=== PATIENT | male | born 1955 | race Caucasian/White ===

== ENCOUNTER 2018-09-07 15:46 | Inpatient (IN) ==
[2018-09-07] MEDS ORDERED: Morphine Inj 4 MG/ML Vial IV.PUSH ONE ×2 (16:02→16:15)
--- NOTE | 2018-09-07 16:15 | ED ---
HPI General Chief complaint: Chest Pain Stated complaint: cardiac alert/evac Time Seen by Provider: 09/07/18 15:56 Source: patient Mode of arrival: EMS Limitations: no limitations History of Present Illness HPI narrative: 63-year-old male with history of hypertension here by ambulance for evaluation of chest pain. The patient is from [place] and drove down here yesterday with his . He has been having intermittent episodes of chest pain for the last week. Pain is substernal and epigastric, described as pressure/sharp, occasionally radiates to his back. Apparently he was evaluated by his primary care physician in [place] who ordered labs and a CT scan of his chest which were reportedly normal. He was given aspirin and sublingual nitroglycerin by EMS prior to arrival, and after 1 dose of sublingual nitroglycerin the patient's blood pressure had significantly dropped. Patient states his pain is severe, constant, no modifying factors. He denies paresthesias or motor deficits. No fevers, chills, cough, or recent illness. No calf pain or swelling. No history of DVT or PE. Related Data Home Medications Medication Instructions Recorded Confirmed esomeprazole magnesium [Nexium] 40 mg PO DAILY 09/07/18 09/07/18 lisinopril 20 mg PO DAILY 09/07/18 09/07/18 multivitamin 1 tab PO DAILY 09/07/18 09/07/18 Allergies Allergy/AdvReac Type Severity Reaction Status Date / Time No Known Allergies Allergy Verified 09/07/18 15:48 Review of Systems ROS: all other systems reviewed are negative [facility] Medical History Medical History HBP (high blood pressure) (Acute) Surgical History Surgical History History of appendectomy (Acute) Social History Social History Substance History: No History of Abuse Second Hand Smoke Exposure: No Smoking Status: Former smoker Tobacco Type: Cigarettes How Often Do You Have a Drink Containing Alcohol: Never Recent Travel in [facility] within the Last 8 Weeks: No Recent Out of Country Travel within the Last 8 Weeks: No Immunization History Tetanus Immunization: >5 Years Exam Narrative Exam Narrative: GENERAL: Well-developed, well-nourished, in obvious pain, SKIN: Focused skin assessment warm/dry. Diffuse jaundice. HEAD: Atraumatic. Normocephalic. EYES: Pupils equal and round. Scleral icterus. No injection or drainage. ENT: No nasal bleeding or discharge. Mucous membranes pink and moist. NECK: Trachea midline. No JVD. CARDIOVASCULAR: Regular rate and rhythm. Distal pulses brisk and equal bilaterally. RESPIRATORY: No accessory muscle use. Clear to auscultation. Breath sounds equal bilaterally. GASTROINTESTINAL: Abdomen soft, nondistended. Mild epigastric tenderness without peritoneal signs. Rest of abdomen is soft and nontender. MUSCULOSKELETAL: No obvious deformities. No clubbing. No cyanosis. No edema. NEUROLOGICAL: Awake and alert. No obvious cranial nerve deficits. Motor grossly within normal limits. Normal speech. PSYCHIATRIC: Appropriate mood and affect; insight and judgment normal. Course Initial Documented Vital Signs Temperature 98.6 F 09/07/18 15:46 Pulse Rate 104 H 09/07/18 15:46 Respiratory Rate 20 09/07/18 15:46 Blood Pressure 134/76 09/07/18 15:46 Pulse Oximetry 96 09/07/18 15:46 Last Documented Vital Signs Temperature 98.2 F 09/07/18 18:08 Pulse Rate 83 09/07/18 18:08 Respiratory Rate 16 09/07/18 18:43 Blood Pressure 146/83 H 09/07/18 18:08 Pulse Oximetry 99 09/07/18 18:08 Critical Care Time Critical Care Time: Yes Total Critical Care Time: 32 Attestation: Aggregate critical care time was 32 minutes. Time to perform other separately billable procedures was not included in the critical care time. My time did not include minutes spent treating any other patients simultaneously or on activities that did not directly contribute to the patient's treatment. The services I provided to this patient were to treat and/or prevent clinically significant deterioration that could result in: , permanent disability, worsening clinical condition, septic shock I provided critical care services requiring my management, as noted below: Chart data review, documentation time, medication orders and management, vital sign assessments/reviewing monitor data, ordering and reviewing lab tests, ordering and interpreting/reviewing x-rays and diagnostic studies, care of the patient and discussion of the patient with the admitting physicians. Medical Decision Making MDM Narrative Medical decision making narrative: Vital signs reviewed. Labs are remarkable for transaminitis, T bili of 5.1, lipase of greater than 30, 000. D-dimer is 10. Calcium is 7.1. Patient was made aware of findings of pancreatitis and hyperbilirubinemia on labs. CT abdomen pelvis will be ordered. The patient was written for more pain medication as well as IV fluids. CT Pulmonary Angiogram: CONCLUSION:1. No pulmonary embolus.2. Nonspecific 8 mm right upper lobe pulmonary nodule. Six-month follow-up noncontrast chest CT is recommended.3. Mild dependent atelectasis of both lung bases.4. Coronary artery calcification.5. Small hiatal hernia. CT Abd/Pelvis: CONCLUSION:1. Moderate severity acute pancreatitis. No parenchymal necrosis demonstrated. No perceptible stones.2. Gallbladder wall thickening. Also pericholecystic fluid. This may be reactive but superimposed acute cholecystitis is also in the differential. Additionally, there is robust mucosal enhancement of the common bile duct and the differential would include cholangitis.3. Mild fatty infiltrated liver. No focal lesion.4. Diverticulosis of the sigmoid colon. No diverticulitis or other acute inflammatory changes of the gastrointestinal tract.5. 1.9 cm left adrenal nodule. I don't have any pertinent priors. This is nonspecific but statistically most likely a benign adenoma.6. Heterogeneous enlargement of the prostate.7. Atherosclerotic aorta. No aneurysm. The patient was started on IV vancomycin and IV Zosyn and will all CT findings and incidental findings including pulmonary nodules were provided a copy of both CT pulmonary angiogram and CT abdomen pelvis reports. Patient denies alcohol use. He will be admitted to the ICU and is amenable to I discussed the case with chain mortiser operator Dr. Celis who will admit the patient to the ICU under his service. He will consult GI. Medical Screen Exam Complete: Yes Emergency Medical Condition: Yes Differential Diagnosis Differential Diagnosis: ACS, pneumothorax, pericarditis, PE, pneumonia, dissection, pancreatitis, hepatobiliary disease Lab Data Result diagrams: 09/07/18 16:10 09/07/18 16:10 Lab Results 09/07/18 09/07/18 09/07/18 Range/Units 16:10 16:10 16:10 WBC 8.5 (4.0-11.0) th/mm3 RBC 4.50 (4.50-5.90) mil/mm3 Hgb 14.8 (13.0-17.0) gm/dL Hct 42.1 (39.0-51.0) % MCV 93.5 (80.0-100.0) fL MCH 32.9 (27.0-34.0) pg MCHC 35.3 (32.0-36.0) % RDW 13.5 (11.6-17.2) % Plt Count 257 (150-450) th/mm3 MPV 8.7 (7.0-11.0) fL Neut % (Auto) 75.0 H (16.0-70.0) % Lymph % (Auto) 11.4 (9.0-44.0) % [place] % (Auto) 12.0 H (0.0-8.0) % Eos % (Auto) 0.8 (0.0-4.0) % Baso % (Auto) 0.8 (0.0-2.0) % Neut # (Auto) 6.4 (1.8-7.7) th/mm3 Lymph # (Auto) 1.0 (1.0-4.8) th/mm3 [place] # (Auto) 1.0 H (0.0-0.9) th/mm3 Eos # (Auto) 0.1 (0.0-0.4) th/mm3 Baso # (Auto) 0.1 (0.0-0.2) th/mm3 WBC Differential . Differential Comment Auto diff final PT 10.4 (9.8-11.6) sec INR 1.0 Ratio APTT 26.5 (23.4-31.7) sec D-Dimer Quant (PE/DVT) 10.11 H (0.00-0.50) mg/L FEU Sodium 139 (136-145) meq/L Potassium 3.4 L (3.5-5.1) meq/L Chloride 109 H (98-107) meq/L Carbon Dioxide 19.7 L (21.0-32.0) meq/L Anion Gap 10 (5-15) meq/L BUN 17 (7-18) mg/dL Creatinine 1.10 (0.60-1.30) mg/dL Estimated GFR 67 L (>89) mL/min Random Glucose 121 H (74-106) mg/dL Calcium 7.1 L* (8.5-10.1) mg/dL Prot Corrected Calcium 7.4 L* (8.5-10.1) mg/dL Total Bilirubin 5.1 H (0.2-1.0) mg/dL AST 271 H (15-37) U/L ALT 487 H (12-78) U/L Alkaline Phosphatase 170 H (45-117) U/L Troponin I Less than 0.02 L (0.02-0.05) ng/mL Total Protein 6.5 (6.4-8.2) g/dL Albumin 2.9 L (3.4-5.0) g/dL Lipase Greater than 91015 H (73-393) U/L Imaging Data Radiologist's impression: Chest X-Ray 09/07/18 16:02 CONCLUSION: No evidence of acute cardiopulmonary process. Abdomen/Pelvis CT 09/07/18 17:59 CONCLUSION: 1. Moderate severity acute pancreatitis. No parenchymal necrosis demonstrated. No perceptible stones. 2. Gallbladder wall thickening. Also pericholecystic fluid. This may be reactive but superimposed acute cholecystitis is also in the differential. Additionally, there is robust mucosal enhancement of the common bile duct and the differential would include cholangitis. 3. Mild fatty infiltrated liver. No focal lesion. 4. Diverticulosis of the sigmoid colon. No diverticulitis or other acute inflammatory changes of the gastrointestinal tract. 5. 1.9 cm left adrenal nodule. I don't have any pertinent priors. This is nonspecific but statistically most likely a benign adenoma. 6. Heterogeneous enlargement of the prostate. 7. Atherosclerotic aorta. No aneurysm. Chest CTA 09/07/18 17:59 CONCLUSION: 1. No pulmonary embolus. 2. Nonspecific 8 mm right upper lobe pulmonary nodule. Six-month follow-up noncontrast chest CT is recommended. 3. Mild dependent atelectasis of both lung bases. 4. Coronary artery calcification. 5. Small hiatal hernia. ECG Data Attestation: I personally reviewed and interpreted this ECG as follows: (Sinus, rate 106, normal axis, normal intervals, low QRS voltages in precordial leads, no acute ischemic abnormalities, no prior for comparison.) Discharge Plan Discharge Disposition Patient Disposition: 30 Still Patient Discharge Condition Condition: Stable Discharge Details Diagnosis: Acute pancreatitis, Transaminitis, Hyperbilirubinemia, Hypocalcemia, Acute cholangitis Physicians Team ED Provider: Sudhakar Barney Primary Care Provider: Primary Care RadhaiJuju Rxs /Orders / Referrals /Forms Prescriptions: No Action lisinopril 20 mg Tablet 20 mg PO DAILY RF: 0 multivitamin Tablet 1 tab PO DAILY RF: 0 esomeprazole magnesium [Nexium] 40 mg Capsule,Delayed Release(Dr/Ec) 40 mg PO DAILY RF: 0 Discharge Instructions Patient Printed Instructions: Chest Pain (ED) Status ED Status: With Doctor
[2018-09-07 16:22] LABS: Baso # (Auto) 0.1 th/mm3 (0.0-0.2); Baso % (Auto) 0.8 % (0.0-2.0); Eos # (Auto) 0.1 th/mm3 (0.0-0.4); Eos % (Auto) 0.8 % (0.0-4.0); Hematocrit 42.1 % (39.0-51.0); Hemoglobin 14.8 gm/dL (13.0-17.0); Lymph % (Auto) 11.4 % (9.0-44.0); Mean Corpuscular HGB Conc 35.3 % (32.0-36.0); Mean Corpuscular Hemoglobin 32.9 pg (27.0-34.0); Mean Corpuscular Volume 93.5 fL (80.0-100.0); Mean Platelet Volume 8.7 fL (7.0-11.0); Neut # (Auto) 6.4 th/mm3 (1.8-7.7); Platelet Count 257 th/mm3 (150-450); Red Cell Distribution Width 13.5 % (11.6-17.2); White Blood Count 8.5 th/mm3 (4.0-11.0)
--- NOTE | 2018-09-07 16:25 | XR ---
EXAM DATE: 09/07/2018 4:20 PM EST AGE/SEX: 63 years / Male INDICATIONS: Chest pain. CLINICAL DATA: This is the patient's initial encounter. Patient reports that signs and symptoms have been present for 1 day and indicates a pain score of 10/10. MEDICAL/SURGICAL HISTORY: Non-responsive. Non-responsive. COMPARISON: No prior exams available for comparison. FINDINGS: A single AP view of the chest demonstrates the lungs to be symmetrically aerated without evidence of mass, infiltrate or effusion. The cardiomediastinal contours are unremarkable. Osseous structures a re intact. CONCLUSION: No evidence of acute cardiopulmonary process. Electronically signed by: Long Johnson MD 09/07/2018 4:24 PM EST
[2018-09-07 16:45] LABS: Activated Partial Thrombo Time 26.5 sec (23.4-31.7); Prothrombin Time 10.4 sec (9.8-11.6)
[2018-09-07 16:49] LABS: D-Dimer 10.11 mg/L FEU (0.00-0.50)
[2018-09-07 17:24] LABS: Alanine Aminotransferase 487 U/L (12-78); Albumin 2.9 g/dL (3.4-5.0); Alkaline Phosphatase 170 U/L (45-117); Anion Gap 10 meq/L (5-15); Aspartate Aminotransferase 271 U/L (15-37); Blood Urea Nitrogen 17 mg/dL (7-18); Calcium 7.1 mg/dL (8.5-10.1); Carbon Dioxide 19.7 meq/L (21.0-32.0); Chloride 109 meq/L (98-107); Glomerular Filtration Rate 67 mL/min (>89); Glucose,Random 121 mg/dL (74-106); Potassium 3.4 meq/L (3.5-5.1); Sodium 139 meq/L (136-145); Total Protein 6.5 g/dL (6.4-8.2)
[2018-09-07] MEDS ORDERED: HYDROmorphone PF Inj 2 MG/ML Vial IV.PUSH ONE (17:59)
[2018-09-07] MEDS ORDERED: Sod Chloride 0.9% Inj 1,000 ML IV.SIG SCH (18:00)
--- NOTE | 2018-09-07 18:40 | CT ---
EXAM DATE: 09/07/2018 6:32 PM EST AGE/SEX: 63 years / Male INDICATIONS: Increasing chest pain for one week CLINICAL DATA: This is the patient's initial encounter. Patient reports that signs and symptoms have been present for 1 week and indicates a pain score of 8/10. MEDICAL/SURGICAL HISTORY: Hypertension. Appendectomy. RADIATION DOSE: 9.10 CTDI (mGy) COMPARISON: No prior exams available for comparison. TECHNIQUE: Volumetric scanning was performed using a multi-row detector CT scanner during bolus infu ras of 98 ml Omnipaque 350 (iohexol) nonionic water-soluble contrast as a cumulative dose for multi ple exams. The data was post processed with a variety of visualization algorithms including full volu me maximum intensity projection and sliding thin slab reformation. Using automated exposure control and adjustment of the mA and/or kV according to patient size, radiation dose was kept as low as reaso nably achievable to obtain optimal diagnostic quality images. DICOM format image data is available e lectronically for review and comparison. FINDINGS: There is no pulmonary embolus. Mild dependent atelectasis seen of both bases. There is an 8 mm pulmonary nodule of the right lung ap ex, series 303 image 22. No lymphadenopathy. Heart size within normal limits. Coronary artery calcification is noted. There is a small hiatal hernia. CONCLUSION: 1. No pulmonary embolus. 2. Nonspecific 8 mm right upper lobe pulmonary nodule. Six-month follow-up noncontrast chest CT is r ecommended. 3. Mild dependent atelectasis of both lung bases. 4. Coronary artery calcification. 5. Small hiatal hernia. Electronically signed by: Reese Retana MD 09/07/2018 6:39 PM EST
--- NOTE | 2018-09-07 18:58 | CT ---
EXAM DATE: 09/07/2018 6:43 PM EST AGE/SEX: 63 years / Male INDICATIONS: Abdomen pain CLINICAL DATA: This is the patient's initial encounter. Patient reports that signs and symptoms have been present for 1 week and indicates a pain score of 8/10. MEDICAL/SURGICAL HISTORY: Hypertension. Appendectomy. ORAL CONTRAST: No oral contrast ingested. RADIATION DOSE: 19.03 CTDI (mGy) COMPARISON: No prior exams available for comparison. TECHNIQUE: Multiple contiguous axial images were obtained through the abdomen and pelvis following b olus infusion of 98 ml Omnipaque 350 (iohexol) nonionic water-soluble contrast as a cumulative dose for multiple exams. No oral contrast ingested. Using automated exposure control and adjustment of t he mA and/or kV according to patient size, radiation dose was kept as low as reasonably achievable to obtain optimal diagnostic quality images. DICOM format image data is available electronically for r eview and comparison. FINDINGS: There is mild to moderate peripancreatic edema consistent with acute pancreatitis. No evide nce of parenchymal necrosis. No fluid collection. Wall thickening seen in the gallbladder and there i s pericholecystic fluid. There is also prominent mucosal enhancement of the common bile duct, nondist ended. No perceptible stone. Liver is mild fatty infiltrated. No focal hepatic lesion or intrahepatic biliary distention. Spleen i s within normal limits. 1.9 cm nodule left adrenal gland. Right adrenal gland is normal. No acute abn ormalities are seen of either kidney. No obstruction or acute inflammatory changes are seen of the gastrointestinal tract. There is left si de diverticulosis of the colon without diverticulitis. No free fluid or free air. No lymphadenopathy. Abdominal aorta is atherosclerotic. No aneurysm. Prostate is enlarged. CONCLUSION: 1. Moderate severity acute pancreatitis. No parenchymal necrosis demonstrated. No perceptible stones . 2. Gallbladder wall thickening. Also pericholecystic fluid. This may be reactive but superimposed ac [place] cholecystitis is also in the differential. Additionally, there is robust mucosal enhancement of t he common bile duct and the differential would include cholangitis. 3. Mild fatty infiltrated liver. No focal lesion. 4. Diverticulosis of the sigmoid colon. No diverticulitis or other acute inflammatory changes of the gastrointestinal tract. 5. 1.9 cm left adrenal nodule. I don't have any pertinent priors. This is nonspecific but statistica lly most likely a benign adenoma. 6. Heterogeneous enlargement of the prostate. 7. Atherosclerotic aorta. No aneurysm. Electronically signed by: Reese Retana MD 09/07/2018 6:57 PM EST
[2018-09-07] MEDS ORDERED: Piperacil/Tazo 4.5 GM Premix 4.5 GM/100 ML BAG IV.SIG ONE (19:01)
[2018-09-07] MEDS ORDERED: Vancomycin Inj 1,000 MG in Sodium Chlor 0.9% Inj 250 ML IV.SIG ONE (19:01)
[2018-09-07] MEDS ORDERED: Dextrose 50% in Water 50 ML Vial IV.PUSH PRN (19:34)
--- NOTE | 2018-09-07 20:07 | P.HPCC ---
History of Present Illness Service: Critical Care Medicine Primary Care Physician: No Primary Care Physician Chief Complaint: abdominal and back pain History of Present Illness: 63yM with history of hypertension and obesity who presents with 5 days of worsening epigastric pain radiating to the back, not associated with food, though he has had a progressive loss of appetite over the last 5 days. Abdominal pain continued to get worse and is severe today. Patient is very clearly jaundiced, but the family notes that they have not noticed this. In the emergency department, laboratory evidence significant for elevated LFTs, elevated T bili to 5, elevated lipase to greater than 30,000. CT abdomen pelvis confirms acute pancreatitis. MRCP confirms 2 stones in the common bile duct. Normal white count and afebrile on room air. Patient denies chest pain, shortness of breath, heat or cold intolerance, nausea, vomiting, diarrhea, constipation. Remainder the review of systems is negative. Patient does have a strong family history of 3 or 4 relatives with gallbladder disease/gallstones. Inpatient Certification: I certify that the inpatient services were ordered in accordance with Medicare regulations governing the order. This includes certification that hospital inpatient services are reasonable and necessary and in the case of services not specified as inpatient-only under 42 CFR 419.22(n), that they are appropriately provided as inpatient services in accordance to with the 2-midnight benchmark under 43 CFR 412.3(e) Estimated Total Length of Stay (Days): 7 Plans for Post Hospital Care: Not yet determined Review of Systems All other systems reviewed negative except as stated in HPI PMFSH - History History Provided By: Patient - Medical History Medical History: Medical History (Last Reviewed 09/08/18 @ 02:51 by Dagoberto Celis MD) HBP (high blood pressure) - Surgical History Surgical History: Surgical History (Last Reviewed 09/08/18 @ 02:51 by Dagoberto Celis MD) History of appendectomy - Family History Family History: Family History (Last Updated 09/08/18 @ 02:51 by Dagoberto Celis MD) Father Gall bladder disease Mother Gall bladder disease - Social History I have reviewed the patient's Social History: Yes - Tobacco History Second Hand Smoke Exposure: No Tobacco Use In Past 30 Days: No Smoking Status: Former smoker Tobacco Type: Cigarettes - Alcohol History How Often Do You Have a Drink Containing Alcohol: Never - Substance Use History Substance History: No History of Abuse - Travel History Recent Travel in the [place] Within the Last 8 Weeks: No Recent Travel Out of the Country Within the Last 8 Weeks: No - Immunization History Tetanus Immunization: >5 Years Medications and Allergies Active Medications: Active Medications Albuterol (Duoneb Neb (Prn)) 1 ampul NEB Q2HR NEB PRN PRN Reason: WHEEZING Chlorhexidine Gluconate (Chlorhexidine 2% Cloth) 3 pack TOPICAL DAILY@0400 GABRIELA Stop: 09/13/18 03:59 Chlorhexidine Gluconate (Chlorhexidine 2% Cloth) 3 pack TOPICAL DAILY@0400 PRN PRN Reason: Extra cloth needed Stop: 09/13/18 03:59 Dextrose (D50w Vial) 50 ml IV.PUSH UNSCH PRN PRN Reason: PER HYPOGLYCEMIA PROTOCOL Famotidine (Pepcid Pf Inj) 20 mg IV.PUSH Q12HR GABRIELA Glucagon (Glucagon Inj) 1 mg OTHER PRN PRN PRN Reason: for Hypoglycemia Protocol Heparin Sodium (Porcine) (Heparin Inj) 5,000 units SQ Q8HR GABRIELA Hydromorphone HCl (Dilaudid Pf Inj) 0.25 mg IV.PUSH Q1H PRN PRN Reason: pain 8-10 or not taking po Vancomycin HCl 1,000 mg/ (Sodium Chloride) 250 mls @ 250 mls/hr IV.SIG ONCE ONE Stop: 09/07/18 20:00 Last Admin: 09/07/18 19:24 Dose: 250 mls/hr Lactated Ringer's (Lr 1000 Ml Inj) 1,000 mls @ 84 mls/hr IV.CONT .[id number] GABRIELA Piperacillin/Tazobactam/Dextrose (Zosyn 4.5 Gm Premix) 4.5 gm in 100 mls @ 200 mls/hr IV.SIG Q6H GABRIELA Insulin Human Regular (Novolin R Correctional Sugar Inj) 0 units SQ Q6HR GABRIELA; Protocol Ondansetron HCl (Zofran Inj) 4 mg IV.PUSH Q6H PRN PRN Reason: NAUSEA OR VOMITING Sodium Chloride (Ns Flush) 2 ml IV.FLUSH UNSCH PRN PRN Reason: FLUSH AFTER USING IV ACCESS Last Admin: 09/07/18 16:28 Dose: 2 ml Sodium Chloride (Ns Flush) 2 ml IV.FLUSH UNSCH PRN PRN Reason: FLUSH AFTER USING IV ACCESS Allergies Allergy/AdvReac Type Severity Reaction Status Date / Time No Known Allergies Allergy Verified 09/07/18 15:48 Home Medications Medication Instructions Recorded Confirmed Type esomeprazole magnesium [Nexium] 40 mg PO DAILY 09/07/18 09/07/18 History lisinopril 20 mg PO DAILY 09/07/18 09/07/18 History multivitamin 1 tab PO DAILY 09/07/18 09/07/18 History Results - Labs CBC & Chem 7: 09/07/18 16:10 09/07/18 16:10 Labs: Short CBC 09/07/18 Range/Units 16:10 WBC 8.5 (4.0-11.0) th/mm3 Hgb 14.8 (13.0-17.0) gm/dL Hct 42.1 (39.0-51.0) % Plt Count 257 (150-450) th/mm3 BMP 09/07/18 16:10 Sodium 139 Potassium 3.4 L Chloride 109 H Carbon Dioxide 19.7 L BUN 17 Creatinine 1.10 Calcium 7.1 L* Cardiac Enzymes 09/07/18 Range/Units 16:10 Troponin I Less than 0.02 L (0.02-0.05) ng/mL Liver Function 09/07/18 Range/Units 16:10 Total Bilirubin 5.1 H (0.2-1.0) mg/dL AST 271 H (15-37) U/L ALT 487 H (12-78) U/L Alkaline Phosphatase 170 H (45-117) U/L Albumin 2.9 L (3.4-5.0) g/dL - Imaging Impressions Chest X-Ray 09/07/18 16:02 CONCLUSION: No evidence of acute cardiopulmonary process. Abdomen/Pelvis CT 09/07/18 17:59 CONCLUSION: 1. Moderate severity acute pancreatitis. No parenchymal necrosis demonstrated. No perceptible stones. 2. Gallbladder wall thickening. Also pericholecystic fluid. This may be reactive but superimposed acute cholecystitis is also in the differential. Additionally, there is robust mucosal enhancement of the common bile duct and the differential would include cholangitis. 3. Mild fatty infiltrated liver. No focal lesion. 4. Diverticulosis of the sigmoid colon. No diverticulitis or other acute inflammatory changes of the gastrointestinal tract. 5. 1.9 cm left adrenal nodule. I don't have any pertinent priors. This is nonspecific but statistically most likely a benign adenoma. 6. Heterogeneous enlargement of the prostate. 7. Atherosclerotic aorta. No aneurysm. Chest CTA 09/07/18 17:59 CONCLUSION: 1. No pulmonary embolus. 2. Nonspecific 8 mm right upper lobe pulmonary nodule. Six-month follow-up noncontrast chest CT is recommended. 3. Mild dependent atelectasis of both lung bases. 4. Coronary artery calcification. 5. Small hiatal hernia. Exam Vital signs: Vital Signs 09/07/18 15:46 09/07/18 16:02 09/07/18 16:15 Temperature 37.0 C 36.9 C Pulse Rate 104 H 95 H Respiratory Rate 20 20 20 Blood Pressure 134/76 152/74 H Pulse Oximetry 96 97 09/07/18 17:00 09/07/18 18:08 09/07/18 18:43 Temperature 36.6 C 36.8 C Pulse Rate 82 83 Respiratory Rate 18 17 16 Blood Pressure 158/67 H 146/83 H Pulse Oximetry 98 99 Intake & Output 09/07/18 09/07/18 09/08/18 06:59 18:59 06:59 Intake Total 1000 / 1000 Balance 1000 / 1000 Weight 117.934 kg Intake: IV 1000 / 1000 NS Inj 1,000 ML @ 1000 mls/hr 1000 / 1000 IV.SIG BOLUS [facility] Rx#:[id number] Narrative: GENERAL: Middle-age male, lying in bed, in distress due to abdominal pain HEENT: Normocephalic. Atraumatic. Pupils equal, round, reactive, conjugate. Mucous membranes are moist NECK: Trachea is midline. There is no JVD. CHEST: Equal chest rise. Room air. CARDIOVASCULAR: Normal rate, regular rhythm. Sinus ABDOMEN: Soft, exquisitely tender in the epigastric region. Nondistended. No guarding. No rebound. MUSCULOSKELETAL: Pulses 2+. No peripheral edema. NEUROLOGICAL: RASS 0. CAM -. Follows commands. No focal deficits. Septic Shock Reassessment Septic shock perfusion: reassessment completed Caprini VTE Risk Assessment Caprini VTE Risk Assessment: Moderate/High Risk (score >= 2) Caprini Risk Assessment Model: Point Value = 1 Point Value = 2 Point Value = 3 Point Value = 5 Age 41-60 Minor surgery BMI > 25 kg/m2 Swollen legs Varicose veins or History of unexplained or recurrent spontaneous Oral contraceptives or hormone replacement Sepsis (< 1 month) Serious lung disease, including pneumonia (< 1 month) Abnormal pulmonary function Acute myocardial infarction Congestive heart failure (< 1 month) History of inflammatory bowel disease Medical patient at bed rest Age 61-74 Arthroscopic surgery Major open surgery (> 45 min) Laparoscopic surgery (> 45 min) Malignancy Confined to bed (> 72 hours) Immobilizing plaster cast Central venous access Age >= 75 History of VTE Family history of VTE Factor V Leiden Prothrombin [id number] Lupus anticoagulant Anticardiolipin antibodies Elevated serum homocysteine Heparin-induced thrombocytopenia Other congenital or acquired thrombophilia Stroke (< 1 month) Elective arthroplasty Hip, pelvis, or leg fracture Acute spinal cord injury (< 1 month) Prophylaxis Regimen: Total Risk Factor Score Risk Level Prophylaxis Regimen 0-1 Low Early ambulation 2 Moderate Order ONE of the following: *Sequential Compression Device (SCD) *Heparin 5000 units SQ BID 3-4 Higher Order ONE of the following medications: *Heparin 5000 units SQ TID *Enoxaparin/Lovenox 40 mg SQ daily (WT < 150 kg, CrCl > 30 mL/min) *Enoxaparin/Lovenox 30 mg SQ daily (WT < 150 kg, CrCl > 10-29 mL/min) *Enoxaparin/Lovenox 30 mg SQ BID (WT < 150 kg, CrCl > 30 mL/min) AND/OR *Sequential Compression Device (SCD) 5 or more Highest Order ONE of the following medications: *Heparin 5000 units SQ TID (Preferred with Epidurals) *Enoxaparin/Lovenox 40 mg SQ daily (WT < 150 kg, CrCl > 30 mL/min) *Enoxaparin/Lovenox 30 mg SQ daily (WT < 150 kg, CrCl > 10-29 mL/min) *Enoxaparin/Lovenox 30 mg SQ BID (WT < 150 kg, CrCl > 30 mL/min) AND *Sequential Compression Device (SCD) Assessment and Plan - Assessment and Plan Plan: Assessment: 63yM with new acute severe pancreatitis likely secondary to gallstones with possible ascending cholangitis. continue iv abx. GI has been consulted. continue antibiotics, fluid resuscitation, and close monitoring. Agree with ICU admission as he is clearly very ill. Active Problems: Severe pain associated with acute pancreatitis Severe acute pancreatitis Ascending Cholangitis Acute kidney injury Acute liver dysfunction Obstructive Jaundice Gallstone pancreatitis Plan: ivf hydration strict npo iv pain control with dilaudid GI consultation zosyn 4.5gm iv q6h strict i/o's frequent uop monitoring trend CMP, mg, phos, lipase daily cbc would plan on ERCP likely in AM. admit to ICU SQH pepcid
--- NOTE | 2018-09-07 21:20 | MR ---
EXAM DATE: 09/07/2018 9:04 PM EST AGE/SEX: 63 years / Male INDICATIONS: Jaundice. CLINICAL DATA: This is the patient's initial encounter. Patient reports that signs and symptoms have been present for 1 week and indicates a pain score of 8/10. MEDICAL/SURGICAL HISTORY: Hypertension. Appendectomy. COMPARISON: [facility] – [place], CT ABDOMEN & PELVIS W CONTRAST, 09/07/2018. . TECHNIQUE: Multiplanar, multisequence images of the abdomen were obtained without contrast including dedicated cholangiographic images. FINDINGS: There is gallbladder wall thickening and pericholecystic fluid. The wall measures up to 7.6 mm maximu m. A 2.5 cm stone is present near the fundus. There are too numerous to count tiny, gravel-like stone s within the gallbladder as well and probably at least a small amount of sludge. I believe at least o ne tiny stone is in the cystic duct on series 9 image 21. At least 2 tiny stones are seen in the dist al common bile duct just upstream of the ampulla, series 9 images 85 and 86. No intrahepatic or extra hepatic biliary distention. The pancreatic duct is nondistended. A somewhat lobulated contour of the gallbladder fundus, probably phrygian cap but a walled off, extra luminal fluid collection is possible, for example series 3 image 25. I don't see any fluid collection s in the adjacent liver but there is a tiny right hepatic lobe cyst. Diffuse peripancreatic edema consistent with acute pancreatitis. Nothing organized or drainable. Seco nd and third portions of the duodenum appear mildly indurated, most likely reactive. I believe there is probably a small, chronic duodenal diverticulum. CONCLUSION: 1. Cholelithiasis; one large and too numerous to count tiny gravel-like stones within the gallbladde r as described. 2. At least 2 tiny stones are present in the distal common bile duct. No biliary distention. 3. I believe one of the tiny stones is also present in the cystic duct. 4. Gallbladder wall thickening and pericholecystic fluid. Phrygian cap versus walled off abscess/rup ture adjacent to the fundus. 5. Acute pancreatitis without associated abscess. Electronically signed by: Reese Retana MD 09/07/2018 9:19 PM EST
[2018-09-07] MEDS: Famotidine PF Inj 20 MG/2 ML Vial IV.PUSH SCH (21:37)
[2018-09-07 22:13] LABS: Chol/HDL Ratio 7.98 Ratio; HDL Cholesterol 20.8 mg/dL (40.0-60.0)
[2018-09-07] MEDS: HYDROmorphone PF Inj 1 MG/ML Ampul IV.PUSH PRN (22:32)
[2018-09-07] MEDS ORDERED: HYDROmorphone PF Inj 2 MG/ML Vial IV.PUSH STA (22:46)
[2018-09-07 22:51] LABS: Hepatitis A IgM Antibody Nonreactive (Nonreactive); Hepatitits B Surface Antigen Nonreactive (Nonreactive)
[2018-09-07] MEDS: Heparin - SQ 10,000 UNITS/ML Vial SQ SCH (23:32)
[2018-09-08] MEDS: Insulin NovoLIN Regular Correctional Sugar Inj SQ SCH ×5 (01:50→23:51)
[2018-09-08] MEDS: HYDROmorphone PF Inj 1 MG/ML Ampul IV.PUSH PRN ×8 (01:51→21:19)
[2018-09-08] MEDS: Piperacil/Tazo 4.5 GM Premix 4.5 GM/100 ML BAG IV.SIG SCH ×4 (01:51→18:08)
[2018-09-08] MEDS ORDERED: Chlorhexidine Gluconate 2% 1 Pack (2 Cloths) TOPICAL PRN (04:00)
[2018-09-08] MEDS: Chlorhexidine Gluconate 2% 1 Pack (2 Cloths) TOPICAL SCH (04:25)
[2018-09-08 06:03] LABS: Baso % (Auto) 0.5 % (0.0-2.0); Eos # (Auto) 0.1 th/mm3 (0.0-0.4); Eos % (Auto) 1.3 % (0.0-4.0); Hematocrit 42.7 % (39.0-51.0); Hemoglobin 14.7 gm/dL (13.0-17.0); Lymph # (Auto) 0.8 th/mm3 (1.0-4.8); Lymph % (Auto) 10.1 % (9.0-44.0); Mean Corpuscular HGB Conc 34.3 % (32.0-36.0); Mean Corpuscular Hemoglobin 32.5 pg (27.0-34.0); Mean Corpuscular Volume 94.5 fL (80.0-100.0); Mean Platelet Volume 9.1 fL (7.0-11.0); Mono # (Auto) 0.8 th/mm3 (0.0-0.9); Mono % (Auto) 11.1 % (0.0-8.0); Neut # (Auto) 5.8 th/mm3 (1.8-7.7); Platelet Count 210 th/mm3 (150-450); Red Blood Count 4.52 mil/mm3 (4.50-5.90); Red Cell Distribution Width 13.3 % (11.6-17.2); White Blood Count 7.6 th/mm3 (4.0-11.0)
[2018-09-08 06:23] LABS: Prothrombin Time 10.2 sec (9.8-11.6)
[2018-09-08 06:37] LABS: Alanine Aminotransferase 485 U/L (12-78); Alkaline Phosphatase 199 U/L (45-117); Anion Gap 8 meq/L (5-15); Aspartate Aminotransferase 243 U/L (15-37); Blood Urea Nitrogen 18 mg/dL (7-18); Calcium 8.3 mg/dL (8.5-10.1); Carbon Dioxide 25.2 meq/L (21.0-32.0); Chloride 107 meq/L (98-107); Glomerular Filtration Rate 70 mL/min (>89); Glucose,Random 95 mg/dL (74-106); Lipase 2316 U/L (73-393); Magnesium 2.3 mg/dL (1.5-2.5); Phosphorus 2.8 mg/dL (2.5-4.9); Potassium 3.8 meq/L (3.5-5.1); Sodium 140 meq/L (136-145)
[2018-09-08] MEDS: Heparin - SQ 10,000 UNITS/ML Vial SQ SCH (07:48)
[2018-09-08] MEDS: Famotidine PF Inj 20 MG/2 ML Vial IV.PUSH SCH ×2 (08:42→21:16)
[2018-09-08] MEDS ORDERED: HYDROmorphone PF Inj 0.5 MG/0.5 ML Syringe IV.PUSH PRN (09:52)
[2018-09-08] MEDS ORDERED: HYDROmorphone PF Inj 1 MG/ML Ampul IV.PUSH STA (09:55)
--- NOTE | 2018-09-08 10:10 | P.PNCC ---
Subjective Subjective Remarks/Hospital Course: 09/07: 63yM with history of hypertension and obesity who presents with 5 days of worsening epigastric pain radiating to the back, not associated with food, though he has had a progressive loss of appetite over the last 5 days. Abdominal pain continued to get worse and is severe today. Patient is very clearly jaundiced, but the family notes that they have not noticed this. In the emergency department, laboratory evidence significant for elevated LFTs, elevated T bili to 5, elevated lipase to greater than 30,000. CT abdomen pelvis confirms acute pancreatitis. MRCP confirms 2 stones in the common bile duct. Normal white count and afebrile on room air. Patient denies chest pain, shortness of breath, heat or cold intolerance, nausea, vomiting, diarrhea, constipation. Remainder the review of systems is negative. Patient does have a strong family history of 3 or 4 relatives with gallbladder disease/gallstones. 09/08: Resting in bed. Complaining of significant upper abdominal pain. On Dilaudid as needed. Otherwise on room air with no hypotension. Awaiting GI evaluation. Objective Vital Signs / I&O: Vital Signs 09/07/18 15:46 09/07/18 16:02 09/07/18 16:15 Temperature 98.6 F 98.4 F Pulse Rate 104 H 95 H Respiratory Rate 20 20 20 Blood Pressure 134/76 152/74 H Pulse Oximetry 96 97 09/07/18 17:00 09/07/18 18:08 09/07/18 18:43 Temperature 98 F 98.2 F Pulse Rate 82 83 Respiratory Rate 18 17 16 Blood Pressure 158/67 H 146/83 H Pulse Oximetry 98 99 09/07/18 21:16 09/07/18 23:22 09/08/18 07:00 Temperature 98.1 F Pulse Rate 75 74 Respiratory Rate 14 18 18 Blood Pressure 142/66 H 161/80 H Pulse Oximetry 94 L 09/08/18 08:00 09/08/18 08:15 09/08/18 08:26 Temperature 98.2 F Pulse Rate 80 77 78 Respiratory Rate 16 17 Blood Pressure 155/75 H Pulse Oximetry 94 L 94 L 93 L 09/08/18 09:00 09/08/18 09:22 09/08/18 09:26 Temperature Pulse Rate 81 79 Respiratory Rate 23 17 23 Blood Pressure 174/83 H Pulse Oximetry 93 L 93 L 09/08/18 10:00 Temperature Pulse Rate 94 H Respiratory Rate 37 H Blood Pressure Pulse Oximetry 93 L Intake & Output 09/07/18 09/08/18 09/08/18 18:59 06:59 18:59 Intake Total 1550 / 1550 Balance 1550 / 1550 Weight 117.934 kg 117.93 kg 123.9 kg Intake: IV 1550 / 1550 Zosyn 4.5 GM Premix 4.5 gm In 300 / 300 100 ml @ 200 mls/hr IV.SIG Q6H GABRIELA Rx#:[id number] NS Inj 1,000 ML @ 1000 mls/hr 1000 / 1000 IV.SIG BOLUS GABRIELA Rx#:[id number] Vancomycin Inj 1,000 MG In NS 250 / 250 Inj 250 ML @ 250 mls/hr IV.SIG ONCE ONE Rx#:[id number] Other: # Voids 3 Date of Last Bowel Movement 09/07/18 Weight On Admission 117.93 kg Result Diagrams: 09/08/18 04:33 09/08/18 04:33 Imaging: Impressions Cholangiopancreatography MRI 09/07/18 00:00 CONCLUSION: 1. Cholelithiasis; one large and too numerous to count tiny gravel-like stones within the gallbladder as described. 2. At least 2 tiny stones are present in the distal common bile duct. No biliary distention. 3. I believe one of the tiny stones is also present in the cystic duct. 4. Gallbladder wall thickening and pericholecystic fluid. Phrygian cap versus walled off abscess/rupture adjacent to the fundus. 5. Acute pancreatitis without associated abscess. Chest X-Ray 09/07/18 16:02 CONCLUSION: No evidence of acute cardiopulmonary process. Abdomen/Pelvis CT 09/07/18 17:59 CONCLUSION: 1. Moderate severity acute pancreatitis. No parenchymal necrosis demonstrated. No perceptible stones. 2. Gallbladder wall thickening. Also pericholecystic fluid. This may be reactive but superimposed acute cholecystitis is also in the differential. Additionally, there is robust mucosal enhancement of the common bile duct and the differential would include cholangitis. 3. Mild fatty infiltrated liver. No focal lesion. 4. Diverticulosis of the sigmoid colon. No diverticulitis or other acute inflammatory changes of the gastrointestinal tract. 5. 1.9 cm left adrenal nodule. I don't have any pertinent priors. This is nonspecific but statistically most likely a benign adenoma. 6. Heterogeneous enlargement of the prostate. 7. Atherosclerotic aorta. No aneurysm. Chest CTA 09/07/18 17:59 CONCLUSION: 1. No pulmonary embolus. 2. Nonspecific 8 mm right upper lobe pulmonary nodule. Six-month follow-up noncontrast chest CT is recommended. 3. Mild dependent atelectasis of both lung bases. 4. Coronary artery calcification. 5. Small hiatal hernia. Objective Remarks: GENERAL: Middle-age male, lying in bed, in distress due to abdominal pain HEENT: Normocephalic. Atraumatic. Pupils equal, round, reactive, conjugate. Mucous membranes are moist NECK: Trachea is midline. There is no JVD. CHEST: Equal chest rise. Room air. CARDIOVASCULAR: Normal rate, regular rhythm. Sinus ABDOMEN: Soft, exquisitely tender in the epigastric region. Nondistended. No guarding. No rebound. MUSCULOSKELETAL: Pulses 2+. No peripheral edema. NEUROLOGICAL: RASS 0. CAM -. Follows commands. No focal deficits. Assessment and Plan - Assessment and Plan Plan: Assessment: 63yM with new acute severe pancreatitis likely secondary to gallstones with possible ascending cholangitis. continue iv abx. GI has been consulted. continue antibiotics, fluid resuscitation. Active Problems: Severe pain associated with acute pancreatitis Severe acute pancreatitis Ascending Cholangitis Acute kidney injury Acute liver dysfunction Obstructive Jaundice Gallstone pancreatitis Plan: ivf hydration strict npo iv pain control with dilaudid GI consultation zosyn 4.5gm iv q6h strict i/o's frequent uop monitoring trend CMP, mg, phos, lipase daily cbc GI to decide regarding ERCP pepcid Subcutaneous heparin when okay with GI Patient is on room air with no respiratory distress or hypotension overnight. Transferred to [facility] Consult and transfer to hospitalist service for further medical management. Critical care will be signing off
--- NOTE | 2018-09-08 14:00 | P.CONGI ---
History of Present Illness Consult date: 09/08/18 Consult reason: Severe acute pancreatitis Chief complaint: Acute pancreatitis, cholangitis, transaminitis, History of Present Illness: This patient is a 63-year-old male with a past medical history significant for hypertension and obesity. Surgical history includes appendectomy patient presented to the emergency room at [facility] with complaint of upper mid abdominal pain for 1 week. Patient reporting epigastric pain that radiates to his back. Patient reports associated loss of appetite over the last week. Upon consultation, patient states abdominal pain with increasing nausea and vomiting since yesterday. Upon arrival CT abdomen and pelvis revealed acute pancreatitis. MRCP revealed 2 stones in the common bile duct. WBC within normal range.Patient denies any fever or chills. Patient denies any use of tobacco or alcohol products. Patient states he he has never had an EGD or colonoscopy in the past. Patient denies any heartburn or difficulty swallowing. States he has a normal brown soft bowel movement daily with no noted bleeding. Family history significant for both parents and siblings undergoing cholecystectomy. Patient states his father had history of gastric ulcers. <Leighann Mcclure - Last Filed: 09/08/18 13:44> Review of Systems All other systems reviewed negative except as stated in HPI <Leighann Mcclure - Last Filed: 09/08/18 13:44> PMFSH - History History Provided By: Patient - Medical History Medical History: Medical History (Last Reviewed 09/08/18 @ 09:15 by Twyla Ivan) HBP (high blood pressure) - Surgical History Surgical History: Surgical History (Last Reviewed 09/08/18 @ 09:15 by Twyla Ivan) History of appendectomy - Family History Family History: Family History (Last Reviewed 09/08/18 @ 09:15 by Twyla Ivan) Father Gall bladder disease Mother Gall bladder disease - Tobacco History Second Hand Smoke Exposure: No Tobacco Use In Past 30 Days: No Smoking Status: Former smoker Tobacco Type: Cigarettes - Alcohol History How Often Do You Have a Drink Containing Alcohol: Never - Substance Use History Substance History: No History of Abuse - Travel History Recent Travel in the [place] Within the Last 8 Weeks: No Recent Travel Out of the Country Within the Last 8 Weeks: No - Immunization History Tetanus Immunization: >5 Years <Leighann Mcclure - Last Filed: 09/08/18 13:44> - Medical History Medical History: Medical History (Last Reviewed 09/08/18 @ 09:15 by Twyla Ivan) HBP (high blood pressure) - Surgical History Surgical History: Surgical History (Last Reviewed 09/08/18 @ 09:15 by Twyla Ivan) History of appendectomy - Family History Family History: Family History (Last Reviewed 09/08/18 @ 09:15 by Twyla Ivan) Father Gall bladder disease Mother Gall bladder disease <Mar Hogue - Last Filed: 09/09/18 09:47> Medications and Allergies Active Medications: Active Medications Albuterol (Duoneb Neb (Prn)) 1 ampul NEB Q2HR NEB PRN PRN Reason: WHEEZING Chlorhexidine Gluconate (Chlorhexidine 2% Cloth) 3 pack TOPICAL DAILY@0400 [facility] Stop: 09/13/18 03:59 Last Admin: 09/08/18 04:25 Dose: 3 pack Chlorhexidine Gluconate (Chlorhexidine 2% Cloth) 3 pack TOPICAL DAILY@0400 PRN PRN Reason: Extra cloth needed Stop: 09/13/18 03:59 Dextrose (D50w Vial) 50 ml IV.PUSH UNSCH PRN PRN Reason: PER HYPOGLYCEMIA PROTOCOL Famotidine (Pepcid Pf Inj) 20 mg IV.PUSH Q12HR [facility] Last Admin: 09/08/18 08:42 Dose: 20 mg Glucagon (Glucagon Inj) 1 mg OTHER PRN PRN PRN Reason: for Hypoglycemia Protocol Heparin Sodium (Porcine) (Heparin Inj) 5,000 units SQ Q8HR [facility] Last Admin: 09/08/18 07:48 Dose: 5,000 units Hydromorphone HCl (Dilaudid Pf Inj) 0.5 mg IV.PUSH Q2H PRN PRN Reason: PAIN SCALE 4 TO 6 MODERATE Hydromorphone HCl (Dilaudid Pf Inj) 1 mg IV.PUSH Q2H PRN PRN Reason: PAIN SCALE 7 TO 10 SEVERE Last Admin: 09/08/18 12:50 Dose: 1 mg Lactated Ringer's (Lr 1000 Ml Inj) 1,000 mls @ 84 mls/hr IV.CONT .[id number] [facility] Last Admin: 09/08/18 12:50 Dose: 84 mls/hr Piperacillin/Tazobactam/Dextrose (Zosyn 4.5 Gm Premix) 4.5 gm in 100 mls @ 200 mls/hr IV.SIG Q6H [facility] Last Admin: 09/08/18 12:50 Dose: 200 mls/hr Insulin Human Regular (Novolin R Correctional Sugar Inj) 0 units SQ Q6HR [facility]; Protocol Last Admin: 09/08/18 12:44 Dose: Not Given Ondansetron HCl (Zofran Inj) 4 mg IV.PUSH Q6H PRN PRN Reason: NAUSEA OR VOMITING Sodium Chloride (Ns Flush) 2 ml IV.FLUSH UNSCH PRN PRN Reason: FLUSH AFTER USING IV ACCESS Last Admin: 09/07/18 16:28 Dose: 2 ml Sodium Chloride (Ns Flush) 2 ml IV.FLUSH UNSCH PRN PRN Reason: FLUSH AFTER USING IV ACCESS <Leighann Mcclure - Last Filed: 09/08/18 13:44> Active Medications: Active Medications Albuterol (Duoneb Neb (Prn)) 1 ampul NEB Q2HR NEB PRN PRN Reason: WHEEZING Chlorhexidine Gluconate (Chlorhexidine 2% Cloth) 3 pack TOPICAL DAILY@0400 [facility] Stop: 09/13/18 03:59 Last Admin: 09/09/18 03:57 Dose: Not Given Chlorhexidine Gluconate (Chlorhexidine 2% Cloth) 3 pack TOPICAL DAILY@0400 PRN PRN Reason: Extra cloth needed Stop: 09/13/18 03:59 Dextrose (D50w Vial) 50 ml IV.PUSH UNSCH PRN PRN Reason: PER HYPOGLYCEMIA PROTOCOL Diphenhydramine HCl (Benadryl Inj) 25 mg IV.PUSH Q6H PRN PRN Reason: for itching Famotidine (Pepcid Pf Inj) 20 mg IV.PUSH Q12HR [facility] Last Admin: 09/09/18 08:25 Dose: 20 mg Glucagon (Glucagon Inj) 1 mg OTHER PRN PRN PRN Reason: for Hypoglycemia Protocol Heparin Sodium (Porcine) (Heparin Inj) 5,000 units SQ Q8HR [facility] Last Admin: 09/08/18 07:48 Dose: 5,000 units Hydromorphone HCl (Dilaudid Pf Inj) 0.5 mg IV.PUSH Q2H PRN PRN Reason: PAIN SCALE 4 TO 6 MODERATE Hydromorphone HCl (Dilaudid Pf Inj) 1 mg IV.PUSH Q2H PRN PRN Reason: PAIN SCALE 7 TO 10 SEVERE Last Admin: 09/08/18 21:19 Dose: 1 mg Lactated Ringer's (Lr 1000 Ml Inj) 1,000 mls @ 84 mls/hr IV.CONT .[id number] [facility] Last Admin: 09/09/18 08:24 Dose: 84 mls/hr Piperacillin/Tazobactam/Dextrose (Zosyn 4.5 Gm Premix) 4.5 gm in 100 mls @ 200 mls/hr IV.SIG Q6H [facility] Last Infusion: 09/09/18 06:35 Dose: Infused Hydromorphone/Sodium Chloride (Dilaudid Digital [employer] Examiner Inj) 6 mg in 30 mls @ 0 mls/hr [employer]IFIER UNSCH PRN PRN Reason: prn pain Last Admin: 09/08/18 16:55 Dose: 0 mls/hr Insulin Human Regular (Novolin R Correctional Sugar Inj) 0 units SQ Q6HR [facility]; Protocol Last Admin: 09/09/18 06:33 Dose: Not Given Naloxone HCl (Narcan Inj) 0.4 mg IV.PUSH PRN PRN PRN Reason: SEE LABEL COMMENTS Ondansetron HCl (Zofran Inj) 4 mg IV.PUSH Q6H PRN PRN Reason: NAUSEA OR VOMITING Sodium Chloride (Ns Flush) 2 ml IV.FLUSH UNSCH PRN PRN Reason: FLUSH AFTER USING IV ACCESS Last Admin: 09/07/18 16:28 Dose: 2 ml Sodium Chloride (Ns Flush) 2 ml IV.FLUSH UNSCH PRN PRN Reason: FLUSH AFTER USING IV ACCESS Last Admin: 09/09/18 01:48 Dose: 2 ml <Mar Hogue - Last Filed: 09/09/18 09:47> Allergies Allergy/AdvReac Type Severity Reaction Status Date / Time No Known Allergies Allergy Verified 09/07/18 15:48 Home Medications Medication Instructions Recorded Confirmed Type esomeprazole magnesium [Nexium] 40 mg PO DAILY 09/07/18 09/07/18 History lisinopril 20 mg PO DAILY 09/07/18 09/07/18 History multivitamin 1 tab PO DAILY 09/07/18 09/07/18 History Exam Vital signs: Vital Signs 09/07/18 15:46 09/07/18 16:02 09/07/18 16:15 Temperature 98.6 F 98.4 F Pulse Rate 104 H 95 H Respiratory Rate 20 20 20 Blood Pressure 134/76 152/74 H Pulse Oximetry 96 97 09/07/18 17:00 09/07/18 18:08 09/07/18 18:43 Temperature 98 F 98.2 F Pulse Rate 82 83 Respiratory Rate 18 17 16 Blood Pressure 158/67 H 146/83 H Pulse Oximetry 98 99 09/07/18 21:16 09/07/18 23:22 09/08/18 07:00 Temperature 98.1 F Pulse Rate 75 74 Respiratory Rate 14 18 18 Blood Pressure 142/66 H 161/80 H Pulse Oximetry 94 L 09/08/18 08:00 09/08/18 08:15 09/08/18 08:26 Temperature 98.2 F Pulse Rate 80 77 78 Respiratory Rate 16 17 Blood Pressure 155/75 H Pulse Oximetry 94 L 94 L 93 L 09/08/18 09:00 09/08/18 09:22 09/08/18 09:26 Temperature Pulse Rate 81 79 Respiratory Rate 23 17 23 Blood Pressure 174/83 H Pulse Oximetry 93 L 93 L 09/08/18 10:00 Temperature Pulse Rate 94 H Respiratory Rate 37 H Blood Pressure Pulse Oximetry 93 L Intake & Output 09/07/18 09/08/18 09/08/18 18:59 06:59 18:59 Intake Total 1550 / 1550 950 / 950 Balance 1550 / 1550 950 / 950 Weight 117.934 kg 117.93 kg 123.9 kg Intake: IV 1550 / 1550 950 / 950 LR 1000 mL Inj 1,000 ML @ 84 950 / 950 mls/hr IV.CONT .[id number] [facility] Rx# :[id number] Zosyn 4.5 GM Premix 4.5 gm In 300 / 300 100 ml @ 200 mls/hr IV.SIG Q6H [facility] Rx#:[id number] NS Inj 1,000 ML @ 1000 mls/hr 1000 / 1000 IV.SIG BOLUS [facility] Rx#:[id number] Vancomycin Inj 1,000 MG In NS 250 / 250 Inj 250 ML @ 250 mls/hr IV.SIG ONCE ONE Rx#:[id number] Other: # Voids 3 Date of Last Bowel Movement 09/07/18 Weight On Admission 117.93 kg - Constitutional mild distress - Routine HEENT Exam Head: Present: normocephalic - Routine Respiratory Exam Present: CTA bilaterally. Absent: accessory muscle use - Routine Abdominal Exam Present: soft, normoactive bowel sounds, tenderness, distended. Absent: guarding, firm Comments: Epigastric tenderness on palpation during exam - Routine Extremities Exam Present: pulses intact - Routine Skin Exam Present: dry, warm - Routine Neurological Exam Present: alert, oriented X3 <Mcclure,Leighann - Last Filed: 09/08/18 13:44> Vital signs: Vital Signs 09/08/18 10:00 09/08/18 12:00 09/08/18 13:26 Temperature 98.3 F Pulse Rate 94 H 93 H Respiratory Rate 37 H 19 Blood Pressure 191/90 H 168/77 H Pulse Oximetry 93 L 95 09/08/18 13:47 09/08/18 14:00 09/08/18 14:26 Temperature Pulse Rate 97 H 93 H Respiratory Rate 19 26 H 22 Blood Pressure 175/83 H Pulse Oximetry 94 L 96 09/08/18 15:00 09/08/18 15:26 09/08/18 15:35 Temperature Pulse Rate 102 H 99 H Respiratory Rate 24 20 18 Blood Pressure 180/83 H Pulse Oximetry 97 95 09/08/18 15:54 09/08/18 16:00 09/08/18 16:26 Temperature 99 F Pulse Rate 100 H 101 H 98 H Respiratory Rate 16 20 20 Blood Pressure 179/81 H 170/78 H Pulse Oximetry 95 95 94 L 09/08/18 17:33 09/08/18 18:30 09/08/18 19:00 Temperature Pulse Rate 100 H Respiratory Rate 21 22 20 Blood Pressure Pulse Oximetry 94 L 09/08/18 19:26 09/08/18 20:00 09/08/18 20:26 Temperature 98.5 F Pulse Rate 99 H 101 H 103 H Respiratory Rate 19 21 20 Blood Pressure 162/79 H 179/89 H Pulse Oximetry 94 L 96 97 09/08/18 20:47 09/08/18 21:00 09/08/18 21:16 Temperature Pulse Rate 108 H 107 H Respiratory Rate 21 22 Blood Pressure 183/84 H Pulse Oximetry 96 97 95 09/08/18 21:25 09/08/18 21:26 09/08/18 21:49 Temperature Pulse Rate 104 H Respiratory Rate 16 19 16 Blood Pressure 171/75 H Pulse Oximetry 93 L 09/08/18 21:53 09/08/18 22:00 09/08/18 22:26 Temperature Pulse Rate 107 H 107 H 105 H Respiratory Rate 19 19 19 Blood Pressure 162/78 H 175/82 H Pulse Oximetry 95 95 95 09/08/18 23:09 09/09/18 00:00 09/09/18 01:00 Temperature 99.5 F Pulse Rate 108 H 109 H 101 H Respiratory Rate 24 Blood Pressure 162/79 H Pulse Oximetry 94 L 09/09/18 02:00 09/09/18 03:00 09/09/18 04:00 Temperature 98.4 F Pulse Rate 103 H 104 H 106 H Respiratory Rate 24 Blood Pressure 166/86 H Pulse Oximetry 96 09/09/18 05:00 09/09/18 07:00 09/09/18 07:54 Temperature Pulse Rate 98 H 100 H Respiratory Rate Blood Pressure Pulse Oximetry 93 L 09/09/18 08:00 09/09/18 09:00 Temperature 99.1 F Pulse Rate 103 H 93 H Respiratory Rate 20 Blood Pressure 171/84 H Pulse Oximetry 94 L Intake & Output 09/08/18 09/09/18 09/09/18 18:59 06:59 18:59 Intake Total 1150 / 1150 1200 / 1200 1000 / 1000 Balance 1150 / 1150 1200 / 1200 1000 / 1000 Weight 123.9 kg 121 kg Intake: IV 1150 / 1150 1200 / 1200 1000 / 1000 LR 1000 mL Inj 1,000 ML @ 84 950 / 950 1000 / 1000 1000 / 1000 mls/hr IV.CONT .[id number] [facility] Rx# :[id number] Zosyn 4.5 GM Premix 4.5 gm In 200 / 200 200 / 200 100 ml @ 200 mls/hr IV.SIG Q6H [facility] Rx#:[id number] Oral 0 / 0 Other: # Voids 5 4 Date of Last Bowel Movement 09/07/18 09/07/18 # Bowel Movements 0 0 <Mar Hogue - Last Filed: 09/09/18 09:47> Results - Labs CBC & Chem 7: 09/08/18 04:33 09/08/18 04:33 Labs: Laboratory Results - last 24 hr 09/07/18 09/07/18 09/07/18 16:10 16:10 16:10 WBC 8.5 RBC 4.50 Hgb 14.8 Hct 42.1 MCV 93.5 MCH 32.9 MCHC 35.3 RDW 13.5 Plt Count 257 MPV 8.7 Neut % (Auto) 75.0 H Lymph % (Auto) 11.4 Menard % (Auto) 12.0 H Eos % (Auto) 0.8 Baso % (Auto) 0.8 Neut # (Auto) 6.4 Lymph # (Auto) 1.0 Menard # (Auto) 1.0 H Eos # (Auto) 0.1 Baso # (Auto) 0.1 WBC Differential . Differential Comment Auto diff final PT 10.4 INR 1.0 APTT 26.5 D-Dimer Quant (PE/DVT) 10.11 H Sodium 139 Potassium 3.4 L Chloride 109 H Carbon Dioxide 19.7 L Anion Gap 10 BUN 17 Creatinine 1.10 Estimated GFR 67 L POC Glucose Random Glucose 121 H Calcium 7.1 L* Prot Corrected Calcium 7.4 L* Phosphorus Magnesium Total Bilirubin 5.1 H GGT AST 271 H ALT 487 H Alkaline Phosphatase 170 H Troponin I Less than 0.02 L Total Protein 6.5 Albumin 2.9 L Triglycerides Cholesterol LDL Cholesterol, Calc HDL Cholesterol Cholesterol/HDL Ratio Lipase Greater [place] 62041 H Hepatitis A IgM Ab Hep Bs Antigen Hep B Core IgM Ab Hep C IgG Ab 09/07/18 09/07/18 09/07/18 21:05 21:05 21:08 WBC RBC Hgb Hct MCV MCH MCHC RDW Plt Count MPV Neut % (Auto) Lymph % (Auto) Menard % (Auto) Eos % (Auto) Baso % (Auto) Neut # (Auto) Lymph # (Auto) Menard # (Auto) Eos # (Auto) Baso # (Auto) WBC Differential Differential Comment PT INR APTT D-Dimer Quant (PE/DVT) Sodium Potassium Chloride Carbon Dioxide Anion Gap BUN Creatinine Estimated GFR POC Glucose Random Glucose Calcium Prot Corrected Calcium Phosphorus Magnesium Total Bilirubin GGT 599 H AST ALT Alkaline Phosphatase Troponin I Total Protein Albumin Triglycerides 124 Cholesterol 166 LDL Cholesterol, Calc 120 H HDL Cholesterol 20.8 L Cholesterol/HDL Ratio 7.98 Lipase Hepatitis A IgM Ab Nonreactive Hep Bs Antigen Nonreactive Hep B Core IgM Ab Nonreactive Hep C IgG Ab Nonreactive 09/07/18 09/08/18 09/08/18 23:54 04:33 04:33 WBC 7.6 RBC 4.52 Hgb 14.7 Hct 42.7 MCV 94.5 MCH 32.5 MCHC 34.3 RDW 13.3 Plt Count 210 MPV 9.1 Neut % (Auto) 77.0 H Lymph % (Auto) 10.1 Menard % (Auto) 11.1 H Eos % (Auto) 1.3 Baso % (Auto) 0.5 Neut # (Auto) 5.8 Lymph # (Auto) 0.8 L Menard # (Auto) 0.8 Eos # (Auto) 0.1 Baso # (Auto) 0.0 WBC Differential . Differential Comment Auto diff final PT 10.2 INR 1.0 APTT D-Dimer Quant (PE/DVT) Sodium Potassium Chloride Carbon Dioxide Anion Gap BUN Creatinine Estimated GFR POC Glucose 101 Random Glucose Calcium Prot Corrected Calcium Phosphorus Magnesium Total Bilirubin GGT AST ALT Alkaline Phosphatase Troponin I Total Protein Albumin Triglycerides Cholesterol LDL Cholesterol, Calc HDL Cholesterol Cholesterol/HDL Ratio Lipase Hepatitis A IgM Ab Hep Bs Antigen Hep B Core IgM Ab Hep C IgG Ab 09/08/18 09/08/18 04:33 11:37 WBC RBC Hgb Hct MCV MCH MCHC RDW Plt Count MPV Neut % (Auto) Lymph % (Auto) Menard % (Auto) Eos % (Auto) Baso % (Auto) Neut # (Auto) Lymph # (Auto) Menard # (Auto) Eos # (Auto) Baso # (Auto) WBC Differential Differential Comment PT INR APTT D-Dimer Quant (PE/DVT) Sodium 140 Potassium 3.8 Chloride 107 Carbon Dioxide 25.2 Anion Gap 8 BUN 18 Creatinine 1.06 Estimated GFR 70 L POC Glucose 91 Random Glucose 95 Calcium 8.3 L D Prot Corrected Calcium Phosphorus 2.8 Magnesium 2.3 Total Bilirubin 5.5 H GGT AST 243 H ALT 485 H Alkaline Phosphatase 199 H Troponin I Total Protein 7.0 Albumin 3.0 L Triglycerides Cholesterol LDL Cholesterol, Calc HDL Cholesterol Cholesterol/HDL Ratio Lipase 2316 H Hepatitis A IgM Ab Hep Bs Antigen Hep B Core IgM Ab Hep C IgG Ab - Imaging Impressions Cholangiopancreatography MRI 09/07/18 00:00 CONCLUSION: 1. Cholelithiasis; one large and too numerous to count tiny gravel-like stones within the gallbladder as described. 2. At least 2 tiny stones are present in the distal common bile duct. No biliary distention. 3. I believe one of the tiny stones is also present in the cystic duct. 4. Gallbladder wall thickening and pericholecystic fluid. Phrygian cap versus walled off abscess/rupture adjacent to the fundus. 5. Acute pancreatitis without associated abscess. Chest X-Ray 09/07/18 16:02 CONCLUSION: No evidence of acute cardiopulmonary process. Abdomen/Pelvis CT 09/07/18 17:59 CONCLUSION: 1. Moderate severity acute pancreatitis. No parenchymal necrosis demonstrated. No perceptible stones. 2. Gallbladder wall thickening. Also pericholecystic fluid. This may be reactive but superimposed acute cholecystitis is also in the differential. Additionally, there is robust mucosal enhancement of the common bile duct and the differential would include cholangitis. 3. Mild fatty infiltrated liver. No focal lesion. 4. Diverticulosis of the sigmoid colon. No diverticulitis or other acute inflammatory changes of the gastrointestinal tract. 5. 1.9 cm left adrenal nodule. I don't have any pertinent priors. This is nonspecific but statistically most likely a benign adenoma. 6. Heterogeneous enlargement of the prostate. 7. Atherosclerotic aorta. No aneurysm. Chest CTA 09/07/18 17:59 CONCLUSION: 1. No pulmonary embolus. 2. Nonspecific 8 mm right upper lobe pulmonary nodule. Six-month follow-up noncontrast chest CT is recommended. 3. Mild dependent atelectasis of both lung bases. 4. Coronary artery calcification. 5. Small hiatal hernia. <Leighann Mcclure - Last Filed: 09/08/18 13:44> - Labs CBC & Chem 7: 09/09/18 04:41 09/09/18 04:41 Labs: Laboratory Results - last 24 hr 09/08/18 09/08/18 09/08/18 11:37 16:55 23:31 WBC RBC Hgb Hct MCV MCH MCHC RDW Plt Count MPV Neut % (Auto) Lymph % (Auto) Menard % (Auto) Eos % (Auto) Baso % (Auto) Neut # (Auto) Lymph # (Auto) Menard # (Auto) Eos # (Auto) Baso # (Auto) WBC Differential Differential Comment PT INR Sodium Potassium Chloride Carbon Dioxide Anion Gap BUN Creatinine Estimated GFR POC Glucose 91 77 84 Random Glucose Calcium Phosphorus Magnesium Total Bilirubin AST ALT Alkaline Phosphatase Total Protein Albumin Lipase 09/09/18 09/09/18 09/09/18 04:41 04:41 04:41 WBC 14.2 H RBC 4.40 L Hgb 14.1 Hct 41.3 MCV 93.9 MCH 32.0 MCHC 34.1 RDW 13.8 Plt Count 231 MPV 9.0 Neut % (Auto) 82.7 H Lymph % (Auto) 6.4 L Menard % (Auto) 9.7 H Eos % (Auto) 0.4 Baso % (Auto) 0.8 Neut # (Auto) 11.8 H Lymph # (Auto) 0.9 L Menard # (Auto) 1.4 H Eos # (Auto) 0.1 Baso # (Auto) 0.1 WBC Differential . Differential Comment Auto diff final PT 10.9 INR 1.1 Sodium 136 Potassium 3.6 Chloride 103 Carbon Dioxide 25.3 Anion Gap 8 BUN 17 Creatinine 0.99 Estimated GFR 76 L POC Glucose Random Glucose 82 Calcium 8.4 L Phosphorus 2.5 Magnesium 2.1 Total Bilirubin 4.3 H AST 110 H ALT 321 H Alkaline Phosphatase 201 H Total Protein 6.6 Albumin 2.6 L Lipase 575 H 09/09/18 06:08 WBC RBC Hgb Hct MCV MCH MCHC RDW Plt Count MPV Neut % (Auto) Lymph % (Auto) Menard % (Auto) Eos % (Auto) Baso % (Auto) Neut # (Auto) Lymph # (Auto) Menard # (Auto) Eos # (Auto) Baso # (Auto) WBC Differential Differential Comment PT INR Sodium Potassium Chloride Carbon Dioxide Anion Gap BUN Creatinine Estimated GFR POC Glucose 87 Random Glucose Calcium Phosphorus Magnesium Total Bilirubin AST ALT Alkaline Phosphatase Total Protein Albumin Lipase <Mar Hogue - Last Filed: 09/09/18 09:47> Assessment and Plan (1) Acute pancreatitis Status: Acute Code(s): K85.90 - Acute pancreatitis without necrosis or infection, unspecified (2) Transaminitis Status: Acute Code(s): R74.0 - Nonspecific elevation of levels of transaminase and lactic acid dehydrogenase [LDH] (3) Hyperbilirubinemia Status: Acute Code(s): E80.6 - Other disorders of bilirubin metabolism (4) Acute cholangitis Status: Acute Code(s): K83.09 - Other cholangitis - Plan This patient is a 63-year-old male with a past medical history significant for hypertension and obesity. Surgical history includes appendectomy patient presented to the emergency room at [facility] with complaint of upper mid abdominal pain for 1 week. Patient reporting epigastric pain that radiates to his back. Patient describes the pain as a sharp pain that was initially intermittent but became constant over the last 24-48 hours. Patient reports associated loss of appetite over the last week. Upon consultation, patient states abdominal pain with increasing nausea and vomiting since yesterday. Upon arrival CT abdomen and pelvis revealed acute pancreatitis. MRCP revealed 2 stones in the common bile duct. WBC within normal range.Patient denies any fever or chills. Patient denies any use of tobacco or alcohol products. Patient states he he has never had an EGD or colonoscopy in the past. Patient denies any heartburn or difficulty swallowing. States he has a normal brown soft bowel movement daily with no noted bleeding. Family history significant for both parents and siblings undergoing cholecystectomy. Patient states his father had history of gastric ulcers Acute pancreatitis Transaminitis Gallstone pancreatitis Possible cholangitis Patient endorses 1 week history of epigastric pain that radiates to back. Patient denies fever or chills. There is associated nausea and vomiting for the last 24-48 hours. -09/07/2018 CT abdomen and pelvis reveal the following--> 1. Moderate severity acute pancreatitis. No parenchymal necrosis demonstrated. No perceptible stones. 2. Gallbladder wall thickening. Also pericholecystic fluid. This may be reactive but superimposed acute cholecystitis is also in the differential. Additionally, there is robust mucosal enhancement of the common bile duct and the differential would include cholangitis. 3. Mild fatty infiltrated liver. No focal lesion. 4. Diverticulosis of the sigmoid colon. No diverticulitis or other acute inflammatory changes of the gastrointestinal tract. 5. 1.9 cm left adrenal nodule. I don't have any pertinent priors. This is nonspecific but statistically most likely a benign adenoma. 6. Heterogeneous enlargement of the prostate. 7. Atherosclerotic aorta. No aneurysm. -09/07/2018 MRCP revealed the following--> 1. Cholelithiasis; one large and too numerous to count tiny gravel-like stones within the gallbladder as described. 2. At least 2 tiny stones are present in the distal common bile duct. No biliary distention. 3. I believe one of the tiny stones is also present in the cystic duct. 4. Gallbladder wall thickening and pericholecystic fluid. Phrygian cap versus walled off abscess/rupture adjacent to the fundus. 5. Acute pancreatitis without associated abscess. Next -09/08/2018 WBC 7.6 hemoglobin 14.7 hematocrit 42.7 INR 1.0 d-dimer 10.11(chest CTA reveals no pulmonary embolus) Total bilirubin 5.5 GGT 599 AST 243 ALT 485 alk phos 199 lipase 2316 Plan -N.p.o. -Analgesics and antiemetics as per attending -Patient may require ERCP -General surgical consult noted and appreciated for evaluation-possible cholecystectomy -Continue IV antibiotics and IV hydration -Monitor liver function tests and lipase level -Supportive care -Further recommendations to follow This patient has been seen by myself and Dr. Hogue and this note is written on his behalf - Attending Attestation Dr. Hogue <Leighann Mcclure - Last Filed: 09/08/18 13:44> (1) Acute pancreatitis Status: Acute Code(s): K85.90 - Acute pancreatitis without necrosis or infection, unspecified (2) Transaminitis Status: Acute Code(s): R74.0 - Nonspecific elevation of levels of transaminase and lactic acid dehydrogenase [LDH] (3) Hyperbilirubinemia Status: Acute Code(s): E80.6 - Other disorders of bilirubin metabolism (4) Acute cholangitis Status: Acute Code(s): K83.09 - Other cholangitis - Attending Attestation Agree with the plan as above. Case discussed with patient extensively, risk benefits and possible complications discussed with the patient. Further recommendations to follow pending findings. Thank you for the consult. <Mar Hogue - Last Filed: 09/09/18 09:47> <Leighann Mcclure - Last Filed: 09/08/18 13:44> (1) Acute pancreatitis Qualifiers: Pancreatitis type: unspecified pancreatitis type Acute pancreatitis complication: unspecified Qualified Code(s): K85.90 - Acute pancreatitis without necrosis or infection, unspecified <Mar Hogue - Last Filed: 09/09/18 09:47> (1) Acute pancreatitis Qualifiers: Qualified Code(s): K85.90 - Acute pancreatitis without necrosis or infection, unspecified
[2018-09-08] MEDS ORDERED: Naloxone Inj 0.4 MG/ML Vial IV.PUSH PRN (15:19)
[2018-09-08] MEDS: HYDROmorphone PCA Inj 6 MG/30 ML PCA.VIAL PCA PRN (16:55)
[2018-09-09] MEDS: Piperacil/Tazo 4.5 GM Premix 4.5 GM/100 ML BAG IV.SIG SCH ×4 (01:47→17:59)
[2018-09-09] MEDS: Chlorhexidine Gluconate 2% 1 Pack (2 Cloths) TOPICAL SCH (03:57)
[2018-09-09 05:56] LABS: Baso # (Auto) 0.1 th/mm3 (0.0-0.2); Baso % (Auto) 0.8 % (0.0-2.0); Eos # (Auto) 0.1 th/mm3 (0.0-0.4); Eos % (Auto) 0.4 % (0.0-4.0); Hematocrit 41.3 % (39.0-51.0); Hemoglobin 14.1 gm/dL (13.0-17.0); Lymph # (Auto) 0.9 th/mm3 (1.0-4.8); Lymph % (Auto) 6.4 % (9.0-44.0); Mean Corpuscular HGB Conc 34.1 % (32.0-36.0); Mean Corpuscular Volume 93.9 fL (80.0-100.0); Mono # (Auto) 1.4 th/mm3 (0.0-0.9); Mono % (Auto) 9.7 % (0.0-8.0); Neut # (Auto) 11.8 th/mm3 (1.8-7.7); Neut % (Auto) 82.7 % (16.0-70.0); Platelet Count 231 th/mm3 (150-450); Red Cell Distribution Width 13.8 % (11.6-17.2); White Blood Count 14.2 th/mm3 (4.0-11.0)
[2018-09-09 06:01] LABS: INR 1.1 Ratio; Prothrombin Time 10.9 sec (9.8-11.6)
[2018-09-09 06:18] LABS: Alanine Aminotransferase 321 U/L (12-78); Albumin 2.6 g/dL (3.4-5.0); Anion Gap 8 meq/L (5-15); Aspartate Aminotransferase 110 U/L (15-37); Blood Urea Nitrogen 17 mg/dL (7-18); Calcium 8.4 mg/dL (8.5-10.1); Carbon Dioxide 25.3 meq/L (21.0-32.0); Chloride 103 meq/L (98-107); Glomerular Filtration Rate 76 mL/min (>89); Glucose,Random 82 mg/dL (74-106); Lipase 575 U/L (73-393); Magnesium 2.1 mg/dL (1.5-2.5); Phosphorus 2.5 mg/dL (2.5-4.9); Potassium 3.6 meq/L (3.5-5.1); Sodium 136 meq/L (136-145)
[2018-09-09 06:20] LABS: Alkaline Phosphatase 201 U/L (45-117); Total Protein 6.6 g/dL (6.4-8.2)
[2018-09-09] MEDS: Insulin NovoLIN Regular Correctional Sugar Inj SQ SCH ×3 (06:33→18:00)
--- NOTE | 2018-09-09 07:15 | ECG ---
Date Performed: 09/07/2018 Time Performed: 15:52:05 PTAGE: 63 years EKG: SINUS TACHYCARDIA LOW QRS VOLTAGE IN PRECORDIAL LEADS ABNORMAL RHYTHM ECG NO PREVIOUS TRACING DOCTOR: Parth Sheehan Interpretating Date/Time 09/09/2018 07:15:14
[2018-09-09] MEDS: Famotidine PF Inj 20 MG/2 ML Vial IV.PUSH SCH ×2 (08:25→20:38)
--- NOTE | 2018-09-09 09:27 | P.CONGS ---
[facility] Gen Surgery Consult Note Consult date: 09/09/18 Reason for consult: gallstones Requesting physician: Jonathan Johnson Narrative: This is a 63 year old male with a past medical history of hypertension. He came to the ED on Wednesday with a 5 day history of abdominal pain with associated nausea and vomiting. A chest CTA was obtained which was negative for PE. A CT abdomen/pelvis was obtained which showed moderately severe acute pancreatitis, gallbladder wall thickening with pericholecystic fluid. An MRCP was done which shows cholelithiasis and two tiny stones present in the distal common bile duct with no biliary duct distention. It also shows acute pancreatitis without associated abscess. On admission, his lipase was greater than 30,000. His total bilirubin was 5.1 on admission and today is 4.3. All of his liver enzymes remain elevated. He is scheduled for an ERCP today. A General Surgery consultation has been requested. Review of Systems All other systems reviewed negative except as stated in [facility] - History History Provided By: Patient - Medical History Medical History: Medical History (Last Reviewed 09/09/18 @ 09:53 by SANDRA Moncada) HBP (high blood pressure) - Surgical History Surgical History: Surgical History (Last Reviewed 09/09/18 @ 09:53 by SANDRA Moncada) History of appendectomy - Family History Family History: Family History (Last Reviewed 09/08/18 @ 09:15 by Twyla Ivan) Father Gall bladder disease Mother Gall bladder disease - Tobacco History Second Hand Smoke Exposure: No Tobacco Use In Past 30 Days: No Smoking Status: Former smoker Tobacco Type: Cigarettes - Alcohol History How Often Do You Have a Drink Containing Alcohol: Never - Substance Use History Substance History: No History of Abuse - Travel History Recent Travel in the [place] Within the Last 8 Weeks: No Recent Travel Out of the Country Within the Last 8 Weeks: No - Immunization History Tetanus Immunization: >5 Years Medications and Allergies Allergies Allergy/AdvReac Type Severity Reaction Status Date / Time No Known Allergies Allergy Verified 09/07/18 15:48 Home Medications Medication Instructions Recorded Confirmed Type esomeprazole magnesium [Nexium] 40 mg PO DAILY 09/07/18 09/07/18 History lisinopril 20 mg PO DAILY 09/07/18 09/07/18 History multivitamin 1 tab PO DAILY 09/07/18 09/07/18 History Active Medications: Active Medications Albuterol (Duoneb Neb (Prn)) 1 ampul NEB Q2HR NEB PRN PRN Reason: WHEEZING Chlorhexidine Gluconate (Chlorhexidine 2% Cloth) 3 pack TOPICAL DAILY@0400 [facility] Stop: 09/13/18 03:59 Last Admin: 09/09/18 03:57 Dose: Not Given Chlorhexidine Gluconate (Chlorhexidine 2% Cloth) 3 pack TOPICAL DAILY@0400 PRN PRN Reason: Extra cloth needed Stop: 09/13/18 03:59 Dextrose (D50w Vial) 50 ml IV.PUSH UNSCH PRN PRN Reason: PER HYPOGLYCEMIA PROTOCOL Diphenhydramine HCl (Benadryl Inj) 25 mg IV.PUSH Q6H PRN PRN Reason: for itching Famotidine (Pepcid Pf Inj) 20 mg IV.PUSH Q12HR [facility] Last Admin: 09/09/18 08:25 Dose: 20 mg Glucagon (Glucagon Inj) 1 mg OTHER PRN PRN PRN Reason: for Hypoglycemia Protocol Heparin Sodium (Porcine) (Heparin Inj) 5,000 units SQ Q8HR [facility] Last Admin: 09/08/18 07:48 Dose: 5,000 units Hydromorphone HCl (Dilaudid Pf Inj) 0.5 mg IV.PUSH Q2H PRN PRN Reason: PAIN SCALE 4 TO 6 MODERATE Hydromorphone HCl (Dilaudid Pf Inj) 1 mg IV.PUSH Q2H PRN PRN Reason: PAIN SCALE 7 TO 10 SEVERE Last Admin: 09/08/18 21:19 Dose: 1 mg Lactated Ringer's (Lr 1000 Ml Inj) 1,000 mls @ 84 mls/hr IV.CONT .[id number] [facility] Last Admin: 09/09/18 08:24 Dose: 84 mls/hr Piperacillin/Tazobactam/Dextrose (Zosyn 4.5 Gm Premix) 4.5 gm in 100 mls @ 200 mls/hr IV.SIG Q6H [facility] Last Infusion: 09/09/18 06:35 Dose: Infused Hydromorphone/Sodium Chloride (Dilaudid Plastics Fitter Inj) 6 mg in 30 mls @ 0 mls/hr [employer]TER [employer]ERK UNSCH PRN PRN Reason: prn pain Last Admin: 09/08/18 16:55 Dose: 0 mls/hr Insulin Human Regular (Novolin R Correctional Sugar Inj) 0 units SQ Q6HR [facility]; Protocol Last Admin: 09/09/18 06:33 Dose: Not Given Naloxone HCl (Narcan Inj) 0.4 mg IV.PUSH PRN PRN PRN Reason: SEE LABEL COMMENTS Ondansetron HCl (Zofran Inj) 4 mg IV.PUSH Q6H PRN PRN Reason: NAUSEA OR VOMITING Sodium Chloride (Ns Flush) 2 ml IV.FLUSH UNSCH PRN PRN Reason: FLUSH AFTER USING IV ACCESS Last Admin: 09/07/18 16:28 Dose: 2 ml Sodium Chloride (Ns Flush) 2 ml IV.FLUSH UNSCH PRN PRN Reason: FLUSH AFTER USING IV ACCESS Last Admin: 09/09/18 01:48 Dose: 2 ml Exam Vital signs: Vital Signs 09/08/18 09:26 09/08/18 10:00 09/08/18 12:00 Temperature 98.3 F Pulse Rate 79 94 H 93 H Respiratory Rate 23 37 H 19 Blood Pressure 174/83 H 191/90 H Pulse Oximetry 93 L 93 L 95 09/08/18 13:26 09/08/18 13:47 09/08/18 14:00 Temperature Pulse Rate 97 H Respiratory Rate 19 26 H Blood Pressure 168/77 H Pulse Oximetry 94 L 09/08/18 14:26 09/08/18 15:00 09/08/18 15:26 Temperature Pulse Rate 93 H 102 H 99 H Respiratory Rate 22 24 20 Blood Pressure 175/83 H 180/83 H Pulse Oximetry 96 97 95 09/08/18 15:35 09/08/18 15:54 09/08/18 16:00 Temperature 99 F Pulse Rate 100 H 101 H Respiratory Rate 18 16 20 Blood Pressure 179/81 H Pulse Oximetry 95 95 09/08/18 16:26 09/08/18 17:33 09/08/18 18:30 Temperature Pulse Rate 98 H Respiratory Rate 20 21 22 Blood Pressure 170/78 H Pulse Oximetry 94 L 09/08/18 19:00 09/08/18 19:26 09/08/18 20:00 Temperature 98.5 F Pulse Rate 100 H 99 H 101 H Respiratory Rate 20 19 21 Blood Pressure 162/79 H Pulse Oximetry 94 L 94 L 96 09/08/18 20:26 09/08/18 20:47 09/08/18 21:00 Temperature Pulse Rate 103 H 108 H Respiratory Rate 20 21 Blood Pressure 179/89 H Pulse Oximetry 97 96 97 09/08/18 21:16 09/08/18 21:25 09/08/18 21:26 Temperature Pulse Rate 107 H 104 H Respiratory Rate 22 16 19 Blood Pressure 183/84 H 171/75 H Pulse Oximetry 95 93 L 09/08/18 21:49 09/08/18 21:53 09/08/18 22:00 Temperature Pulse Rate 107 H 107 H Respiratory Rate 16 19 19 Blood Pressure 162/78 H Pulse Oximetry 95 95 09/08/18 22:26 09/08/18 23:09 09/09/18 00:00 Temperature 99.5 F Pulse Rate 105 H 108 H 109 H Respiratory Rate 19 24 Blood Pressure 175/82 H 162/79 H Pulse Oximetry 95 94 L 09/09/18 01:00 09/09/18 02:00 09/09/18 03:00 Temperature Pulse Rate 101 H 103 H 104 H Respiratory Rate Blood Pressure Pulse Oximetry 09/09/18 04:00 09/09/18 05:00 09/09/18 07:00 Temperature 98.4 F Pulse Rate 106 H 98 H 100 H Respiratory Rate 24 Blood Pressure 166/86 H Pulse Oximetry 96 09/09/18 07:54 09/09/18 08:00 09/09/18 09:00 Temperature 99.1 F Pulse Rate 103 H 93 H Respiratory Rate 20 Blood Pressure 171/84 H Pulse Oximetry 93 L 94 L Intake & Output 09/08/18 09/09/18 09/09/18 18:59 06:59 18:59 Intake Total 1150 / 1150 1200 / 1200 1000 / 1000 Balance 1150 / 1150 1200 / 1200 1000 / 1000 Weight 123.9 kg 121 kg Intake: IV 1150 / 1150 1200 / 1200 1000 / 1000 LR 1000 mL Inj 1,000 ML @ 84 950 / 950 1000 / 1000 1000 / 1000 mls/hr IV.CONT .[id number] [facility] Rx# :[id number] Zosyn 4.5 GM Premix 4.5 gm In 200 / 200 200 / 200 100 ml @ 200 mls/hr IV.SIG Q6H [facility] Rx#:[id number] Oral 0 / 0 Other: # Voids 5 4 Date of Last Bowel Movement 09/07/18 09/07/18 # Bowel Movements 0 0 Narrative: GENERAL: Very pleasant 63 year old male resting in bed in no acute distress. SKIN: Slight jaundice hue to his skin. HEAD: Atraumatic. Normocephalic. EYES: Pupils equal and round. Sclera mildly jaundice. ENT: No nasal bleeding or discharge. Mucous membranes pink and moist. NECK: Trachea midline. CARDIOVASCULAR: Regular rate and rhythm. RESPIRATORY: No accessory muscle use. Clear to auscultation. Breath sounds equal bilaterally. GASTROINTESTINAL: Abdomen soft; distended. Epigastric tenderness with palpation. Very faint laparoscopic scars. MUSCULOSKELETAL: Extremities without clubbing, cyanosis, or edema. No obvious deformities. NEUROLOGICAL: Awake and alert. No obvious cranial nerve deficits. Motor grossly within normal limits. Five out of 5 muscle strength in the arms and legs. Normal speech. PSYCHIATRIC: Appropriate mood and affect; insight and judgment normal. Results - Labs 09/09/18 04:41 09/09/18 04:41 Laboratory Results - last 24 hr 09/08/18 09/08/18 09/08/18 11:37 16:55 23:31 WBC RBC Hgb Hct MCV MCH MCHC RDW Plt Count MPV Neut % (Auto) Lymph % (Auto) Mcdonough % (Auto) Eos % (Auto) Baso % (Auto) Neut # (Auto) Lymph # (Auto) Mcdonough # (Auto) Eos # (Auto) Baso # (Auto) WBC Differential Differential Comment PT INR Sodium Potassium Chloride Carbon Dioxide Anion Gap BUN Creatinine Estimated GFR POC Glucose 91 77 84 Random Glucose Calcium Phosphorus Magnesium Total Bilirubin AST ALT Alkaline Phosphatase Total Protein Albumin Lipase 09/09/18 09/09/18 09/09/18 04:41 04:41 04:41 WBC 14.2 H RBC 4.40 L Hgb 14.1 Hct 41.3 MCV 93.9 MCH 32.0 MCHC 34.1 RDW 13.8 Plt Count 231 MPV 9.0 Neut % (Auto) 82.7 H Lymph % (Auto) 6.4 L Mcdonough % (Auto) 9.7 H Eos % (Auto) 0.4 Baso % (Auto) 0.8 Neut # (Auto) 11.8 H Lymph # (Auto) 0.9 L Mcdonough # (Auto) 1.4 H Eos # (Auto) 0.1 Baso # (Auto) 0.1 WBC Differential . Differential Comment Auto diff final PT 10.9 INR 1.1 Sodium 136 Potassium 3.6 Chloride 103 Carbon Dioxide 25.3 Anion Gap 8 BUN 17 Creatinine 0.99 Estimated GFR 76 L POC Glucose Random Glucose 82 Calcium 8.4 L Phosphorus 2.5 Magnesium 2.1 Total Bilirubin 4.3 H AST 110 H ALT 321 H Alkaline Phosphatase 201 H Total Protein 6.6 Albumin 2.6 L Lipase 575 H 09/09/18 06:08 WBC RBC Hgb Hct MCV MCH MCHC RDW Plt Count MPV Neut % (Auto) Lymph % (Auto) Mcdonough % (Auto) Eos % (Auto) Baso % (Auto) Neut # (Auto) Lymph # (Auto) Mcdonough # (Auto) Eos # (Auto) Baso # (Auto) WBC Differential Differential Comment PT INR Sodium Potassium Chloride Carbon Dioxide Anion Gap BUN Creatinine Estimated GFR POC Glucose 87 Random Glucose Calcium Phosphorus Magnesium Total Bilirubin AST ALT Alkaline Phosphatase Total Protein Albumin Lipase - Imaging Imaging: ITS Impressions Cholangiopancreatography MRI 09/07/18 00:00 CONCLUSION: 1. Cholelithiasis; one large and too numerous to count tiny gravel-like stones within the gallbladder as described. 2. At least 2 tiny stones are present in the distal common bile duct. No biliary distention. 3. I believe one of the tiny stones is also present in the cystic duct. 4. Gallbladder wall thickening and pericholecystic fluid. Phrygian cap versus walled off abscess/rupture adjacent to the fundus. 5. Acute pancreatitis without associated abscess. Chest X-Ray 09/07/18 16:02 CONCLUSION: No evidence of acute cardiopulmonary process. Abdomen/Pelvis CT 09/07/18 17:59 CONCLUSION: 1. Moderate severity acute pancreatitis. No parenchymal necrosis demonstrated. No perceptible stones. 2. Gallbladder wall thickening. Also pericholecystic fluid. This may be reactive but superimposed acute cholecystitis is also in the differential. Additionally, there is robust mucosal enhancement of the common bile duct and the differential would include cholangitis. 3. Mild fatty infiltrated liver. No focal lesion. 4. Diverticulosis of the sigmoid colon. No diverticulitis or other acute inflammatory changes of the gastrointestinal tract. 5. 1.9 cm left adrenal nodule. I don't have any pertinent priors. This is nonspecific but statistically most likely a benign adenoma. 6. Heterogeneous enlargement of the prostate. 7. Atherosclerotic aorta. No aneurysm. Chest CTA 09/07/18 17:59 CONCLUSION: 1. No pulmonary embolus. 2. Nonspecific 8 mm right upper lobe pulmonary nodule. Six-month follow-up noncontrast chest CT is recommended. 3. Mild dependent atelectasis of both lung bases. 4. Coronary artery calcification. 5. Small hiatal hernia. CT scan - abdomen: image reviewed Additional studies: MRCP Assessment and Plan - Assessment (1) Acute pancreatitis Code(s): K85.90 - Acute pancreatitis without necrosis or infection, unspecified Status: Acute Qualifiers: Pancreatitis type: unspecified pancreatitis type Acute pancreatitis complication: unspecified Qualified Code(s): K85.90 - Acute pancreatitis without necrosis or infection, unspecified Plan: 63 year old male gallstone pancreatitis -Patient with distal CBD stones---ERCP planned for today -NPO -IVF -Pain control -Patient can likely benefit from bowel regimen post ERCP -Will continue to follow patient --- laparoscopic cholecystectomy can be done inpatient once pancreatitis resolves vs laparoscopic cholecystectomy by a surgeon [place] -Thank you for this consult; We will continue to follow - Plan I personally evaluated the patient in room 327 as he was awaiting ERCP. His abdomen was mildly diffusely tender. He had healed laparoscopy scars from lap appendectomy. We discussed in detail options for pursuing lap almaz during this hospitalization, vs the risks associated with delay in lap almaz with return to his home [place]. We will follow him closely. The exam, history, and the medical decision-making described in the above note were completed with the assistance of the mid-level provider. I reviewed and agree with the findings presented. I attest that I had a [id number] encounter with the patient on the same day, and personally performed and documented my assessment and findings in the medical record. Discussed Condition With: Dr. Mic Acosta
[2018-09-09] MEDS ORDERED: Chlorhexidine Gluconate 2% 1 Pack (2 Cloths) TOPICAL ONE (10:45)
[2018-09-09] MEDS ORDERED: Metoprolol Tartrate 25 MG Tablet PO ONE (10:45)
[2018-09-09] MEDS ORDERED: Sodium Chlor 0.9% Inj 500 ML IV.SIG ONE (11:00)
[2018-09-09] MEDS ORDERED: Bisacodyl 10 MG Supp RECTAL PRN (11:02)
--- NOTE | 2018-09-09 11:30 | P.PN ---
Subjective Interval history: Follow-up for acute pancreatitis, possible cholecystitis as well as cholangitis. Patient is currently doing well. He is a scheduled for ERCP today. No fever or chills. He reports minimal amount of abdominal pain. He has not had any bowel movement in 2 days. Physical Exam Vital signs: Vital Signs 09/08/18 12:00 09/08/18 13:26 09/08/18 13:47 Temperature 98.3 F Pulse Rate 93 H Respiratory Rate 19 19 Blood Pressure 191/90 H 168/77 H Pulse Oximetry 95 09/08/18 14:00 09/08/18 14:26 09/08/18 15:00 Temperature Pulse Rate 97 H 93 H 102 H Respiratory Rate 26 H 22 24 Blood Pressure 175/83 H Pulse Oximetry 94 L 96 97 09/08/18 15:26 09/08/18 15:35 09/08/18 15:54 Temperature Pulse Rate 99 H 100 H Respiratory Rate 20 18 16 Blood Pressure 180/83 H Pulse Oximetry 95 95 09/08/18 16:00 09/08/18 16:26 09/08/18 17:33 Temperature 99 F Pulse Rate 101 H 98 H Respiratory Rate 20 20 21 Blood Pressure 179/81 H 170/78 H Pulse Oximetry 95 94 L 09/08/18 18:30 09/08/18 19:00 09/08/18 19:26 Temperature Pulse Rate 100 H 99 H Respiratory Rate 22 20 19 Blood Pressure 162/79 H Pulse Oximetry 94 L 94 L 09/08/18 20:00 09/08/18 20:26 09/08/18 20:47 Temperature 98.5 F Pulse Rate 101 H 103 H Respiratory Rate 21 20 Blood Pressure 179/89 H Pulse Oximetry 96 97 96 09/08/18 21:00 09/08/18 21:16 09/08/18 21:25 Temperature Pulse Rate 108 H 107 H Respiratory Rate 21 22 16 Blood Pressure 183/84 H Pulse Oximetry 97 95 09/08/18 21:26 09/08/18 21:49 09/08/18 21:53 Temperature Pulse Rate 104 H 107 H Respiratory Rate 19 16 19 Blood Pressure 171/75 H 162/78 H Pulse Oximetry 93 L 95 09/08/18 22:00 09/08/18 22:26 09/08/18 23:09 Temperature 99.5 F Pulse Rate 107 H 105 H 108 H Respiratory Rate 19 19 24 Blood Pressure 175/82 H 162/79 H Pulse Oximetry 95 95 94 L 09/09/18 00:00 09/09/18 01:00 09/09/18 02:00 Temperature Pulse Rate 109 H 101 H 103 H Respiratory Rate Blood Pressure Pulse Oximetry 09/09/18 03:00 09/09/18 04:00 09/09/18 05:00 Temperature 98.4 F Pulse Rate 104 H 106 H 98 H Respiratory Rate 24 Blood Pressure 166/86 H Pulse Oximetry 96 09/09/18 07:00 09/09/18 07:54 09/09/18 08:00 Temperature 99.1 F Pulse Rate 100 H 103 H Respiratory Rate 20 Blood Pressure 171/84 H Pulse Oximetry 93 L 94 L 09/09/18 09:00 Temperature Pulse Rate 93 H Respiratory Rate Blood Pressure Pulse Oximetry Intake & Output 09/08/18 09/09/18 09/09/18 18:59 06:59 18:59 Intake Total 1150 / 1150 1200 / 1200 1000 / 1000 Balance 1150 / 1150 1200 / 1200 1000 / 1000 Weight 123.9 kg 121 kg Intake: IV 1150 / 1150 1200 / 1200 1000 / 1000 LR 1000 mL Inj 1,000 ML @ 84 950 / 950 1000 / 1000 1000 / 1000 mls/hr IV.CONT .[id number] [facility] Rx# :[id number] Zosyn 4.5 GM Premix 4.5 gm In 200 / 200 200 / 200 100 ml @ 200 mls/hr IV.SIG Q6H [facility] Rx#:[id number] Oral 0 / 0 Other: # Voids 5 4 Date of Last Bowel Movement 09/07/18 09/07/18 09/07/18 # Bowel Movements 0 0 Narrative: GENERAL: Alert, NAD. SKIN: Warm and dry. HEAD: Normocephalic. EYES: No scleral icterus. No injection or drainage. NECK: Supple, trachea midline. No JVD or lymphadenopathy. CARDIOVASCULAR: Regular rate and rhythm without murmurs, gallops, or rubs. RESPIRATORY: Breath sounds equal bilaterally. No accessory muscle use. GASTROINTESTINAL: Abdomen somewhat distended, no tenderness on palpation except mild tenderness over epigastric area. BS+ MUSCULOSKELETAL: No cyanosis, or edema. BACK: Nontender without obvious deformity. No CVA tenderness. Results - Labs CBC & Chem 7: 09/09/18 04:41 09/09/18 04:41 Laboratory Results - last 24 hr 09/08/18 09/08/18 09/08/18 11:37 16:55 23:31 WBC RBC Hgb Hct MCV MCH MCHC RDW Plt Count MPV Neut % (Auto) Lymph % (Auto) Frontier % (Auto) Eos % (Auto) Baso % (Auto) Neut # (Auto) Lymph # (Auto) Frontier # (Auto) Eos # (Auto) Baso # (Auto) WBC Differential Differential Comment PT INR Sodium Potassium Chloride Carbon Dioxide Anion Gap BUN Creatinine Estimated GFR POC Glucose 91 77 84 Random Glucose Calcium Phosphorus Magnesium Total Bilirubin AST ALT Alkaline Phosphatase Total Protein Albumin Lipase 09/09/18 09/09/18 09/09/18 04:41 04:41 04:41 WBC 14.2 H RBC 4.40 L Hgb 14.1 Hct 41.3 MCV 93.9 MCH 32.0 MCHC 34.1 RDW 13.8 Plt Count 231 MPV 9.0 Neut % (Auto) 82.7 H Lymph % (Auto) 6.4 L Frontier % (Auto) 9.7 H Eos % (Auto) 0.4 Baso % (Auto) 0.8 Neut # (Auto) 11.8 H Lymph # (Auto) 0.9 L Frontier # (Auto) 1.4 H Eos # (Auto) 0.1 Baso # (Auto) 0.1 WBC Differential . Differential Comment Auto diff final PT 10.9 INR 1.1 Sodium 136 Potassium 3.6 Chloride 103 Carbon Dioxide 25.3 Anion Gap 8 BUN 17 Creatinine 0.99 Estimated GFR 76 L POC Glucose Random Glucose 82 Calcium 8.4 L Phosphorus 2.5 Magnesium 2.1 Total Bilirubin 4.3 H AST 110 H ALT 321 H Alkaline Phosphatase 201 H Total Protein 6.6 Albumin 2.6 L Lipase 575 H 09/09/18 06:08 WBC RBC Hgb Hct MCV MCH MCHC RDW Plt Count MPV Neut % (Auto) Lymph % (Auto) Frontier % (Auto) Eos % (Auto) Baso % (Auto) Neut # (Auto) Lymph # (Auto) Frontier # (Auto) Eos # (Auto) Baso # (Auto) WBC Differential Differential Comment PT INR Sodium Potassium Chloride Carbon Dioxide Anion Gap BUN Creatinine Estimated GFR POC Glucose 87 Random Glucose Calcium Phosphorus Magnesium Total Bilirubin AST ALT Alkaline Phosphatase Total Protein Albumin Lipase Microbiology 09/08/18 10:50 Blood - Peripheral Aerobic Blood Culture - Preliminary No growth in 1 day 09/08/18 10:50 Blood - Peripheral Anaerobic Blood Culture - Preliminary No growth in 1 day 09/08/18 10:55 Blood - Peripheral Aerobic Blood Culture - Preliminary No growth in 1 day 09/08/18 10:55 Blood - Peripheral Anaerobic Blood Culture - Preliminary No growth in 1 day - Imaging Cholangiopancreatography MRI 09/07/18 00:00 CONCLUSION: 1. Cholelithiasis; one large and too numerous to count tiny gravel-like stones within the gallbladder as described. 2. At least 2 tiny stones are present in the distal common bile duct. No biliary distention. 3. I believe one of the tiny stones is also present in the cystic duct. 4. Gallbladder wall thickening and pericholecystic fluid. Phrygian cap versus walled off abscess/rupture adjacent to the fundus. 5. Acute pancreatitis without associated abscess. Chest X-Ray 09/07/18 16:02 CONCLUSION: No evidence of acute cardiopulmonary process. Abdomen/Pelvis CT 09/07/18 17:59 CONCLUSION: 1. Moderate severity acute pancreatitis. No parenchymal necrosis demonstrated. No perceptible stones. 2. Gallbladder wall thickening. Also pericholecystic fluid. This may be reactive but superimposed acute cholecystitis is also in the differential. Additionally, there is robust mucosal enhancement of the common bile duct and the differential would include cholangitis. 3. Mild fatty infiltrated liver. No focal lesion. 4. Diverticulosis of the sigmoid colon. No diverticulitis or other acute inflammatory changes of the gastrointestinal tract. 5. 1.9 cm left adrenal nodule. I don't have any pertinent priors. This is nonspecific but statistically most likely a benign adenoma. 6. Heterogeneous enlargement of the prostate. 7. Atherosclerotic aorta. No aneurysm. Chest CTA 09/07/18 17:59 CONCLUSION: 1. No pulmonary embolus. 2. Nonspecific 8 mm right upper lobe pulmonary nodule. Six-month follow-up noncontrast chest CT is recommended. 3. Mild dependent atelectasis of both lung bases. 4. Coronary artery calcification. 5. Small hiatal hernia. Assessment and Plan - Plan Mr. Acosta is a pleasant 63-year-old with a history of hypertension, obesity who was admitted to the hospital on 09/07/2018 due to 5-day duration of worsening epigastric pain radiating to the back. His pain was not associated food although he reports progressively worsening anorexia. Upon admission, his lipase level was greater than 30,000, LFTs were elevated as well as bilirubin. CT abdomen pelvis confirmed acute pancreatitis. Patient subsequently underwent MRCP study which shows 2 stones in the common bile duct. Gastroenterology was consulted. Patient was initially managed in the ICU and subsequently care was transferred to the hospitalist service. Acute pancreatitis Acute cholangitis Probable acute cholecystitis Continue hydromorphone for pain control. Continue Zosyn 4.5 g every 6 hours. GI and general surgery are following. ERCP is planned for today 09/09/2018. Constipation We will start bowel regimen. Full code. Heparin for DVT prophylaxis which is on hold for now.
[2018-09-09] MEDS ORDERED: Lidocaine PF 1% Inj 5 ML Syringe OTHER ONE (11:55)
[2018-09-09] MEDS ORDERED: Succinylcholine Inj 100 MG/5 ML Syringe IV.PUSH ONE (11:55)
[2018-09-09] MEDS ORDERED: fentaNYL Citrate Inj 100 MCG/2 ML Ampul ONE (12:03)
[2018-09-09] MEDS ORDERED: Iohexol 350 MG/ML 50 ML Vial (for Rad Diag) PO ONE ×2 (12:21→13:15)
[2018-09-09] MEDS ORDERED: Sugammadex Inj 200 MG/2 ML Vial IV.PUSH ONE (12:44)
--- NOTE | 2018-09-09 12:52 | GIPROC ---
[facility] [address] [facility]. [facility], [id number] ERCP PROCEDURE REPORT EXAM DATE: 09/09/2018 PATIENT NAME: Tin Acosta MR #: [id number] BIRTHDATE: 1955 ATTENDING: Mar Hogue MD ORDER #: [id number] DUAL HOSE CEMENTER: Shanika Dumont Stienbarger, Terrie, and Luciano Levy STATUS: inpatient INDICATIONS: The patient is a 63 yr old male here for an ERCP due to established bile duct stone(s) PROCEDURE PERFORMED: ERCP, Level 1 MEDICATIONS: Per Anesthesia and None. CONSENT: The patient understands the risks and benefits of the procedure and understands that these risks include, but are not limited to: sedation, allergic reaction, infection, perforation and/or bleeding. Alternative means of evaluation and treatment include, among others: physical exam, x-rays, and/or surgical intervention. The patient elects to proceed with this endoscopic procedure. medical equipment was checked for proper function. Hand hygiene and appropriate measures for infection prevention was taken. After the risks, benefits and alternatives of the procedure were thoroughly explained, Informed was verified, confirmed and timeout was successfully executed by the treatment team. With the patient in left semi-prone position, medications were administered intravenously.The Pentax [id number] was passed from the mouth into the esophagus and further advanced from the esophagus into the stomach. From stomach scope was directed to the second portion of the duodenum. Major papilla was aligned with the duodenoscope. The scope position was confirmed fluoroscopically. Rest of the findings/therapeutics are given below. The scope was then completely withdrawn from the patient and the procedure completed. The pulse, BP, and O2 saturation were monitored and documented by the physician and the nursing staff throughout the entire procedure. The patient was cared for as planned according to standard protocol. The patient was then discharged to recovery in stable condition and with appropriate post procedure care. The ampulla was located the second portion of the duodenum. The ampulla was small and difficult to locate. ADVERSE EVENT: There were no complications. IMPRESSIONS: The ampulla was small and difficult to locate with severe edema and inflammation from nearby pancreatitis RECOMMENDATIONS: 1. Combined procedure for any signs of cholangitis or worsening liver enzymes, otherwise repeat ERCP infew days when pancreas is less inflammed. 2. Liver enzymes daily REPEAT EXAM: Return 3 days ERCP Mar Hogue MD eSigned: Mar Hogue MD 09/09/2018 12:51 PM cc:
[2018-09-09] MEDS: HYDROmorphone PF Inj 1 MG/ML Ampul IV.PUSH PRN (20:40)
[2018-09-09] MEDS: HYDROmorphone PCA Inj 6 MG/30 ML PCA.VIAL PCA PRN (23:19)
[2018-09-10] MEDS: Piperacil/Tazo 4.5 GM Premix 4.5 GM/100 ML BAG IV.SIG SCH ×4 (00:07→19:20)
[2018-09-10] MEDS: Insulin NovoLIN Regular Correctional Sugar Inj SQ SCH ×5 (00:26→23:47)
[2018-09-10 05:02] LABS: Baso # (Auto) 0.1 th/mm3 (0.0-0.2); Baso % (Auto) 0.6 % (0.0-2.0); Eos # (Auto) 0.3 th/mm3 (0.0-0.4); Eos % (Auto) 2.6 % (0.0-4.0); Hematocrit 39.3 % (39.0-51.0); Hemoglobin 13.6 gm/dL (13.0-17.0); Lymph # (Auto) 0.9 th/mm3 (1.0-4.8); Lymph % (Auto) 7.4 % (9.0-44.0); Mean Corpuscular HGB Conc 34.7 % (32.0-36.0); Mean Corpuscular Volume 92.4 fL (80.0-100.0); Mean Platelet Volume 8.7 fL (7.0-11.0); Mono % (Auto) 7.9 % (0.0-8.0); Neut # (Auto) 10.3 th/mm3 (1.8-7.7); Neut % (Auto) 81.5 % (16.0-70.0); Platelet Count 213 th/mm3 (150-450); Red Blood Count 4.26 mil/mm3 (4.50-5.90); Red Cell Distribution Width 13.8 % (11.6-17.2); White Blood Count 12.7 th/mm3 (4.0-11.0)
[2018-09-10 05:16] LABS: Prothrombin Time 10.2 sec (9.8-11.6)
[2018-09-10 05:28] LABS: Albumin 2.6 g/dL (3.4-5.0); Anion Gap 9 meq/L (5-15); Aspartate Aminotransferase 74 U/L (15-37); Blood Urea Nitrogen 16 mg/dL (7-18); Calcium 7.9 mg/dL (8.5-10.1); Carbon Dioxide 27.5 meq/L (21.0-32.0); Chloride 99 meq/L (98-107); Glomerular Filtration Rate 70 mL/min (>89); Glucose,Random 104 mg/dL (74-106); Lipase 248 U/L (73-393); Magnesium 2.2 mg/dL (1.5-2.5); Potassium 3.5 meq/L (3.5-5.1); Sodium 135 meq/L (136-145)
[2018-09-10 05:33] LABS: Alanine Aminotransferase 220 U/L (12-78); Alkaline Phosphatase 176 U/L (45-117); Phosphorus 1.9 mg/dL (2.5-4.9); Total Protein 6.5 g/dL (6.4-8.2)
[2018-09-10] MEDS: Chlorhexidine Gluconate 2% 1 Pack (2 Cloths) TOPICAL SCH (05:33)
[2018-09-10] MEDS: Famotidine PF Inj 20 MG/2 ML Vial IV.PUSH SCH ×2 (09:11→20:16)
--- NOTE | 2018-09-10 09:24 | P.PN ---
Subjective Interval history: Follow-up for acute pancreatitis, possible cholecystitis as well as cholangitis. Patient is sitting in his chair. On room air. Denies any chest pain. However he complains of significant abdominal pain. No fever or chills. This morning, he tried to eat a popsicle and had abdominal pain and nausea. Physical Exam Vital signs: Vital Signs 09/09/18 13:00 09/09/18 13:20 09/09/18 13:25 Temperature 98.5 F 98.4 F 98.5 F Pulse Rate 90 91 H 92 H Respiratory Rate 15 17 22 Blood Pressure 129/68 142/75 H 154/80 H Pulse Oximetry 09/09/18 15:00 09/09/18 19:00 09/09/18 20:30 Temperature 97.8 F 98.5 F Pulse Rate 81 92 H Respiratory Rate 20 18 Blood Pressure 151/82 H 155/75 H Pulse Oximetry 93 L 93 L 09/09/18 21:10 09/09/18 23:00 09/10/18 00:09 Temperature 97.8 F Pulse Rate 89 Respiratory Rate 20 18 20 Blood Pressure 147/69 H Pulse Oximetry 09/10/18 03:00 09/10/18 03:50 09/10/18 04:00 Temperature 98.6 F Pulse Rate 90 Respiratory Rate 18 16 18 Blood Pressure 150/80 H Pulse Oximetry 95 Intake & Output 09/09/18 09/10/18 09/10/18 18:59 06:59 18:59 Intake Total 2280 / 2280 580 / 580 Balance 2280 / 2280 580 / 580 Weight 122 kg Intake: IV 1200 / 1200 100 / 100 LR 1000 mL Inj 1,000 ML @ 84 1000 / 1000 mls/hr IV.CONT .[id number] [facility] Rx# :[id number] Zosyn 4.5 GM Premix 4.5 gm In 200 / 200 100 / 100 100 ml @ 200 mls/hr IV.SIG Q6H [facility] Rx#:[id number] Oral 480 / 480 480 / 480 Anesthesia Amount 600 / 600 Other: # Voids 4 3 Date of Last Bowel Movement 09/07/18 09/07/18 # Bowel Movements 0 Narrative: GENERAL: Alert, NAD SKIN: Warm and dry. HEAD: Normocephalic. EYES: No scleral icterus. No injection or drainage. NECK: Supple, trachea midline. No JVD or lymphadenopathy. CARDIOVASCULAR: Regular rate and rhythm without murmurs, gallops, or rubs. RESPIRATORY: Breath sounds equal bilaterally. No accessory muscle use. GASTROINTESTINAL: Abdomen soft, somewhat distended, pain mostly in the epigastric area. Hypoactive bowel sound. MUSCULOSKELETAL: No cyanosis, or edema. BACK: Nontender without obvious deformity. No CVA tenderness. Results - Labs CBC & Chem 7: 09/10/18 04:31 09/10/18 04:31 Laboratory Results - last 24 hr 09/09/18 09/09/18 09/10/18 13:11 17:59 00:20 WBC RBC Hgb Hct MCV MCH MCHC RDW Plt Count MPV Neut % (Auto) Lymph % (Auto) [place] % (Auto) Eos % (Auto) Baso % (Auto) Neut # (Auto) Lymph # (Auto) [place] # (Auto) Eos # (Auto) Baso # (Auto) WBC Differential Differential Comment PT INR Sodium Potassium Chloride Carbon Dioxide Anion Gap BUN Creatinine Estimated GFR POC Glucose 99 119 H 93 Random Glucose Calcium Phosphorus Magnesium Total Bilirubin AST ALT Alkaline Phosphatase Total Protein Albumin Lipase 09/10/18 09/10/18 09/10/18 04:31 04:31 04:31 WBC 12.7 H RBC 4.26 L Hgb 13.6 Hct 39.3 MCV 92.4 MCH 32.0 MCHC 34.7 RDW 13.8 Plt Count 213 MPV 8.7 Neut % (Auto) 81.5 H Lymph % (Auto) 7.4 L [place] % (Auto) 7.9 Eos % (Auto) 2.6 Baso % (Auto) 0.6 Neut # (Auto) 10.3 H Lymph # (Auto) 0.9 L [place] # (Auto) 1.0 H Eos # (Auto) 0.3 Baso # (Auto) 0.1 WBC Differential . Differential Comment Auto diff final PT 10.2 INR 1.0 Sodium 135 L Potassium 3.5 Chloride 99 Carbon Dioxide 27.5 Anion Gap 9 BUN 16 Creatinine 1.06 Estimated GFR 70 L POC Glucose Random Glucose 104 Calcium 7.9 L Phosphorus 1.9 L Magnesium 2.2 Total Bilirubin 3.2 H AST 74 H ALT 220 H Alkaline Phosphatase 176 H Total Protein 6.5 Albumin 2.6 L Lipase 248 Microbiology 09/08/18 10:50 Blood - Peripheral Aerobic Blood Culture - Preliminary No growth in 1 day 09/08/18 10:50 Blood - Peripheral Anaerobic Blood Culture - Preliminary No growth in 1 day 09/08/18 10:55 Blood - Peripheral Aerobic Blood Culture - Preliminary No growth in 1 day 09/08/18 10:55 Blood - Peripheral Anaerobic Blood Culture - Preliminary No growth in 1 day Assessment and Plan - Plan Mr. Acosta is a pleasant 63-year-old with a history of hypertension, obesity who was admitted to the hospital on 09/07/2018 due to 5-day duration of worsening epigastric pain radiating to the back. His pain was not associated food although he reports progressively worsening anorexia. Upon admission, his lipase level was greater than 30,000, LFTs were elevated as well as bilirubin. CT abdomen pelvis confirmed acute pancreatitis. Patient subsequently underwent MRCP study which shows 2 stones in the common bile duct. Gastroenterology was consulted. Patient was initially managed in the ICU and subsequently care was transferred to the hospitalist service. Acute pancreatitis Acute cholangitis Probable acute cholecystitis Continue hydromorphone for pain control. Continue Zosyn 4.5 g every 6 hours. GI and general surgery are following. ERCP on 09/09/2018 was suboptimal. A repeat ERCP is planned in 2-3 days. Constipation We will continue bowel regimen. Obtain KUB Full code. Heparin for DVT prophylaxis.
--- NOTE | 2018-09-10 12:45 | P.PNGI ---
Subjective Interval history: Patient sitting up in bed. States he feels "fair". States abdominal pain mildly improved. No BM yet today, states passing flatus Post ERCP <Leighann Mcclure - Last Filed: 09/10/18 12:37> Physical Exam Vital signs: Vital Signs 09/09/18 13:00 09/09/18 13:20 09/09/18 13:25 Temperature 98.5 F 98.4 F 98.5 F Pulse Rate 90 91 H 92 H Respiratory Rate 15 17 22 Blood Pressure 129/68 142/75 H 154/80 H Pulse Oximetry 09/09/18 15:00 09/09/18 19:00 09/09/18 20:30 Temperature 97.8 F 98.5 F Pulse Rate 81 92 H Respiratory Rate 20 18 Blood Pressure 151/82 H 155/75 H Pulse Oximetry 93 L 93 L 09/09/18 21:10 09/09/18 23:00 09/10/18 00:09 Temperature 97.8 F Pulse Rate 89 Respiratory Rate 20 18 20 Blood Pressure 147/69 H Pulse Oximetry 09/10/18 03:00 09/10/18 03:50 09/10/18 04:00 Temperature 98.6 F Pulse Rate 90 Respiratory Rate 18 16 18 Blood Pressure 150/80 H Pulse Oximetry 95 09/10/18 07:00 09/10/18 08:00 09/10/18 10:25 Temperature 98.8 F Pulse Rate 86 Respiratory Rate 20 Blood Pressure 163/83 H Pulse Oximetry 95 95 95 09/10/18 11:00 Temperature 98.6 F Pulse Rate 91 H Respiratory Rate 18 Blood Pressure 140/89 Pulse Oximetry 96 Intake & Output 09/09/18 09/10/18 09/10/18 18:59 06:59 18:59 Intake Total 2280 / 2280 580 / 580 1100 / 1100 Balance 2280 / 2280 580 / 580 1100 / 1100 Weight 122 kg Intake: IV 1200 / 1200 100 / 100 1100 / 1100 LR 1000 mL Inj 1,000 ML @ 84 1000 / 1000 1000 / 1000 mls/hr IV.CONT .[id number] [facility] Rx# :[id number] Zosyn 4.5 GM Premix 4.5 gm In 200 / 200 100 / 100 100 / 100 100 ml @ 200 mls/hr IV.SIG Q6H [facility] Rx#:[id number] Oral 480 / 480 480 / 480 Anesthesia Amount 600 / 600 Other: # Voids 4 3 Date of Last Bowel Movement 09/07/18 09/07/18 09/07/18 # Bowel Movements 0 - Constitutional no acute distress - Routine HEENT Exam Head: Present: normocephalic - Routine Respiratory Exam Present: CTA bilaterally. Absent: accessory muscle use - Routine Cardiovascular Exam Present: S1, S2 - Routine Abdominal Exam Present: soft, normoactive bowel sounds, distended. Absent: tenderness, guarding - Routine Extremities Exam Present: pulses intact. Absent: edema - Routine Skin Exam Present: dry, warm - Routine Neurological Exam Present: alert - Routine Psychiatric Exam Present: normal affect, cooperative <Mcclure,Leighann - Last Filed: 09/10/18 12:37> Vital signs: Vital Signs 09/09/18 15:00 09/09/18 19:00 09/09/18 20:30 Temperature 97.8 F 98.5 F Pulse Rate 81 92 H Respiratory Rate 20 18 Blood Pressure 151/82 H 155/75 H Pulse Oximetry 93 L 93 L 09/09/18 21:10 09/09/18 23:00 09/10/18 00:09 Temperature 97.8 F Pulse Rate 89 Respiratory Rate 20 18 20 Blood Pressure 147/69 H Pulse Oximetry 09/10/18 03:00 09/10/18 03:50 09/10/18 04:00 Temperature 98.6 F Pulse Rate 90 Respiratory Rate 18 16 18 Blood Pressure 150/80 H Pulse Oximetry 95 09/10/18 07:00 09/10/18 08:00 09/10/18 10:25 Temperature 98.8 F Pulse Rate 86 Respiratory Rate 20 Blood Pressure 163/83 H Pulse Oximetry 95 95 95 09/10/18 11:00 Temperature 98.6 F Pulse Rate 91 H Respiratory Rate 18 Blood Pressure 140/89 Pulse Oximetry 96 Intake & Output 09/09/18 09/10/18 09/10/18 18:59 06:59 18:59 Intake Total 2280 / 2280 580 / 580 1200 / 1200 Balance 2280 / 2280 580 / 580 1200 / 1200 Weight 122 kg Intake: IV 1200 / 1200 100 / 100 1200 / 1200 LR 1000 mL Inj 1,000 ML @ 84 1000 / 1000 1000 / 1000 mls/hr IV.CONT .[id number] [facility] Rx# :[id number] Zosyn 4.5 GM Premix 4.5 gm In 200 / 200 100 / 100 200 / 200 100 ml @ 200 mls/hr IV.SIG Q6H GABRI[facility]A Rx#:[id number] Oral 480 / 480 480 / 480 Anesthesia Amount 600 / 600 Other: # Voids 4 3 Date of Last Bowel Movement 09/07/18 09/07/18 09/07/18 # Bowel Movements 0 <Mar Hogue A - Last Filed: 09/11/18 11:47> Results - Labs CBC & Chem 7: 09/10/18 04:31 09/10/18 04:31 Laboratory Results - last 24 hr 09/09/18 09/09/18 09/10/18 13:11 17:59 00:20 WBC RBC Hgb Hct MCV MCH MCHC RDW Plt Count MPV Neut % (Auto) Lymph % (Auto) [place] % (Auto) Eos % (Auto) Baso % (Auto) Neut # (Auto) Lymph # (Auto) [place] # (Auto) Eos # (Auto) Baso # (Auto) WBC Differential Differential Comment PT INR Sodium Potassium Chloride Carbon Dioxide Anion Gap BUN Creatinine Estimated GFR POC Glucose 99 119 H 93 Random Glucose Calcium Phosphorus Magnesium Total Bilirubin AST ALT Alkaline Phosphatase Total Protein Albumin Lipase 09/10/18 09/10/18 09/10/18 04:31 04:31 04:31 WBC 12.7 H RBC 4.26 L Hgb 13.6 Hct 39.3 MCV 92.4 MCH 32.0 MCHC 34.7 RDW 13.8 Plt Count 213 MPV 8.7 Neut % (Auto) 81.5 H Lymph % (Auto) 7.4 L [place] % (Auto) 7.9 Eos % (Auto) 2.6 Baso % (Auto) 0.6 Neut # (Auto) 10.3 H Lymph # (Auto) 0.9 L [place] # (Auto) 1.0 H Eos # (Auto) 0.3 Baso # (Auto) 0.1 WBC Differential . Differential Comment Auto diff final PT 10.2 INR 1.0 Sodium 135 L Potassium 3.5 Chloride 99 Carbon Dioxide 27.5 Anion Gap 9 BUN 16 Creatinine 1.06 Estimated GFR 70 L POC Glucose Random Glucose 104 Calcium 7.9 L Phosphorus 1.9 L Magnesium 2.2 Total Bilirubin 3.2 H AST 74 H ALT 220 H Alkaline Phosphatase 176 H Total Protein 6.5 Albumin 2.6 L Lipase 248 09/10/18 11:39 WBC RBC Hgb Hct MCV MCH MCHC RDW Plt Count MPV Neut % (Auto) Lymph % (Auto) [place] % (Auto) Eos % (Auto) Baso % (Auto) Neut # (Auto) Lymph # (Auto) [place] # (Auto) Eos # (Auto) Baso # (Auto) WBC Differential Differential Comment PT INR Sodium Potassium Chloride Carbon Dioxide Anion Gap BUN Creatinine Estimated GFR POC Glucose 96 Random Glucose Calcium Phosphorus Magnesium Total Bilirubin AST ALT Alkaline Phosphatase Total Protein Albumin Lipase Microbiology 09/08/18 10:50 Blood - Peripheral Aerobic Blood Culture - Preliminary No growth in 2 days 09/08/18 10:50 Blood - Peripheral Anaerobic Blood Culture - Preliminary No growth in 2 days 09/08/18 10:55 Blood - Peripheral Aerobic Blood Culture - Preliminary No growth in 2 days 09/08/18 10:55 Blood - Peripheral Anaerobic Blood Culture - Preliminary No growth in 2 days <Leighann Mcclure - Last Filed: 09/10/18 12:37> - Labs CBC & Chem 7: 09/11/18 04:18 09/11/18 04:18 Laboratory Results - last 24 hr 09/09/18 09/10/18 09/10/18 17:59 00:20 04:31 WBC 12.7 H RBC 4.26 L Hgb 13.6 Hct 39.3 MCV 92.4 MCH 32.0 MCHC 34.7 RDW 13.8 Plt Count 213 MPV 8.7 Neut % (Auto) 81.5 H Lymph % (Auto) 7.4 L [place] % (Auto) 7.9 Eos % (Auto) 2.6 Baso % (Auto) 0.6 Neut # (Auto) 10.3 H Lymph # (Auto) 0.9 L [place] # (Auto) 1.0 H Eos # (Auto) 0.3 Baso # (Auto) 0.1 WBC Differential . Differential Comment Auto diff final PT INR Sodium Potassium Chloride Carbon Dioxide Anion Gap BUN Creatinine Estimated GFR POC Glucose 119 H 93 Random Glucose Calcium Phosphorus Magnesium Total Bilirubin AST ALT Alkaline Phosphatase Total Protein Albumin Lipase 09/10/18 09/10/18 09/10/18 04:31 04:31 11:39 WBC RBC Hgb Hct MCV MCH MCHC RDW Plt Count MPV Neut % (Auto) Lymph % (Auto) [place] % (Auto) Eos % (Auto) Baso % (Auto) Neut # (Auto) Lymph # (Auto) [place] # (Auto) Eos # (Auto) Baso # (Auto) WBC Differential Differential Comment PT 10.2 INR 1.0 Sodium 135 L Potassium 3.5 Chloride 99 Carbon Dioxide 27.5 Anion Gap 9 BUN 16 Creatinine 1.06 Estimated GFR 70 L POC Glucose 96 Random Glucose 104 Calcium 7.9 L Phosphorus 1.9 L Magnesium 2.2 Total Bilirubin 3.2 H AST 74 H ALT 220 H Alkaline Phosphatase 176 H Total Protein 6.5 Albumin 2.6 L Lipase 248 Microbiology 09/08/18 10:50 Blood - Peripheral Aerobic Blood Culture - Preliminary No growth in 2 days 09/08/18 10:50 Blood - Peripheral Anaerobic Blood Culture - Preliminary No growth in 2 days 09/08/18 10:55 Blood - Peripheral Aerobic Blood Culture - Preliminary No growth in 2 days 09/08/18 10:55 Blood - Peripheral Anaerobic Blood Culture - Preliminary No growth in 2 days <Mar Hogue - Last Filed: 09/11/18 11:47> Assessment and Plan (1) Acute pancreatitis Status: Acute Code(s): K85.90 - Acute pancreatitis without necrosis or infection, unspecified (2) Transaminitis Status: Acute Code(s): R74.0 - Nonspecific elevation of levels of transaminase and lactic acid dehydrogenase [LDH] (3) Hyperbilirubinemia Status: Acute Code(s): E80.6 - Other disorders of bilirubin metabolism (4) Acute cholangitis Status: Acute Code(s): K83.09 - Other cholangitis - Plan This patient is a 63-year-old male with a past medical history significant for hypertension and obesity. Surgical history includes appendectomy patient presented to the emergency room at [facility] with complaint of upper mid abdominal pain for 1 week. Patient reporting epigastric pain that radiates to his back. Patient describes the pain as a sharp pain that was initially intermittent but became constant over the last 24-48 hours. Patient reports associated loss of appetite over the last week. Upon consultation, patient states abdominal pain with increasing nausea and vomiting since yesterday. Upon arrival CT abdomen and pelvis revealed acute pancreatitis. MRCP revealed 2 stones in the common bile duct. WBC within normal range.Patient denies any fever or chills. Patient denies any use of tobacco or alcohol products. Patient states he he has never had an EGD or colonoscopy in the past. Patient denies any heartburn or difficulty swallowing. States he has a normal brown soft bowel movement daily with no noted bleeding. Family history significant for both parents and siblings undergoing cholecystectomy. Patient states his father had history of gastric ulcers Acute pancreatitis Transaminitis Gallstone pancreatitis Possible cholangitis Patient endorses 1 week history of epigastric pain that radiates to back. Patient denies fever or chills. There is associated nausea and vomiting for the last 24-48 hours. -09/07/2018 CT abdomen and pelvis reveal the following--> 1. Moderate severity acute pancreatitis. No parenchymal necrosis demonstrated. No perceptible stones. 2. Gallbladder wall thickening. Also pericholecystic fluid. This may be reactive but superimposed acute cholecystitis is also in the differential. Additionally, there is robust mucosal enhancement of the common bile duct and the differential would include cholangitis. 3. Mild fatty infiltrated liver. No focal lesion. 4. Diverticulosis of the sigmoid colon. No diverticulitis or other acute inflammatory changes of the gastrointestinal tract. 5. 1.9 cm left adrenal nodule. I don't have any pertinent priors. This is nonspecific but statistically most likely a benign adenoma. 6. Heterogeneous enlargement of the prostate. 7. Atherosclerotic aorta. No aneurysm. -09/07/2018 MRCP revealed the following--> 1. Cholelithiasis; one large and too numerous to count tiny gravel-like stones within the gallbladder as described. 2. At least 2 tiny stones are present in the distal common bile duct. No biliary distention. 3. I believe one of the tiny stones is also present in the cystic duct. 4. Gallbladder wall thickening and pericholecystic fluid. Phrygian cap versus walled off abscess/rupture adjacent to the fundus. 5. Acute pancreatitis without associated abscess. Next -09/08/2018 WBC 7.6 hemoglobin 14.7 hematocrit 42.7 INR 1.0 d-dimer 10.11(chest CTA reveals no pulmonary embolus) Total bilirubin 5.5 GGT 599 AST 243 ALT 485 alk phos 199 lipase 2316 09/10/2018 Acute pancreatitis Transaminitis Gallstone pancreatitis -Patient reports mildly improved abdominal discomfort. Denies any nausea or vomiting. States tolerating clear liquids well. -09/09/2018 ERCP: The ampulla was small and difficult to locate with severe edema and inflammation from nearby pancreatitis. -09/10/2018 WBC 12.7 hemoglobin 13.6 hematocrit 39.7 platelet count 213 Total bilirubin 3.2 AST 74 ALT 220 alk phos 176 lipase 248 all trending down Plan -Clear liquid diet -Analgesics and antiemetics as per attending -Repeat ERCP in a few days -Continue IV antibiotics and IV hydration -Monitor liver function tests and lipase level -Supportive care -Further recommendations to follow This patient has been seen by myself and Dr. Hogue and this note is written on his behalf - Attending Attestation Dr. Hogue <Leighann Mcclure - Last Filed: 09/10/18 12:37> (1) Acute pancreatitis Status: Acute Code(s): K85.90 - Acute pancreatitis without necrosis or infection, unspecified (2) Transaminitis Status: Acute Code(s): R74.0 - Nonspecific elevation of levels of transaminase and lactic acid dehydrogenase [LDH] (3) Hyperbilirubinemia Status: Acute Code(s): E80.6 - Other disorders of bilirubin metabolism (4) Acute cholangitis Status: Acute Code(s): K83.09 - Other cholangitis - Attending Attestation As above, labs and clinically improving. Will need few days prior to repeating ERCP. Will follow up with you. <Mar Hogue - Last Filed: 09/11/18 11:47> <Leighann Mcclure - Last Filed: 09/10/18 12:37> (1) Acute pancreatitis Qualifiers: Pancreatitis type: unspecified pancreatitis type Acute pancreatitis complication: unspecified Qualified Code(s): K85.90 - Acute pancreatitis without necrosis or infection, unspecified <Mar Hogue - Last Filed: 09/11/18 11:47> (1) Acute pancreatitis Qualifiers: Qualified Code(s): K85.90 - Acute pancreatitis without necrosis or infection, unspecified
--- NOTE | 2018-09-10 15:03 | XR ---
EXAM DATE: 09/10/2018 2:54 PM EST AGE/SEX: 63 years / Male INDICATIONS: Abdominal pain. CLINICAL DATA: This is the patient's initial encounter. Patient reports that signs and symptoms have been present for 1 week and indicates a pain score of 6/10. MEDICAL/SURGICAL HISTORY: . Hypertension. Appendectomy. COMPARISON: [facility] [place], MRCP W/O CONTRAST, 09/07/2018. . FINDINGS: Mild diffuse gaseous distention of several small bowel loops as well as the descending colon. No stephanie ss pneumatosis or free air. Air is seen extending to the rectum. No abnormal calcifications. Osseous structures are intact. CONCLUSION: 1. Findings consistent with mild adynamic ileus. Electronically signed by: Kade Gibson MD 09/10/2018 3:01 PM EST
[2018-09-10] MEDS: Heparin - SQ 10,000 UNITS/ML Vial SQ SCH (20:16)
--- NOTE | 2018-09-10 20:32 | P.PN ---
Subjective Interval history: Still painful GI unable to cannulate to retrieve stones; going to retry on Wednesday, 09/12 Physical Exam Vital signs: Vital Signs 09/09/18 20:30 09/09/18 21:10 09/09/18 23:00 Temperature 97.8 F Pulse Rate 89 Respiratory Rate 20 18 Blood Pressure 147/69 H Pulse Oximetry 93 L 09/10/18 00:09 09/10/18 03:00 09/10/18 03:50 Temperature 98.6 F Pulse Rate 90 Respiratory Rate 20 18 16 Blood Pressure 150/80 H Pulse Oximetry 95 09/10/18 04:00 09/10/18 07:00 09/10/18 08:00 Temperature 98.8 F Pulse Rate 86 Respiratory Rate 18 20 Blood Pressure 163/83 H Pulse Oximetry 95 95 09/10/18 10:25 09/10/18 11:00 09/10/18 15:00 Temperature 98.6 F 98.8 F Pulse Rate 91 H 88 Respiratory Rate 18 20 Blood Pressure 140/89 157/89 H Pulse Oximetry 95 96 96 09/10/18 16:00 Temperature Pulse Rate Respiratory Rate 20 Blood Pressure Pulse Oximetry Intake & Output 09/10/18 09/10/18 09/11/18 06:59 18:59 06:59 Intake Total 580 / 580 2009 Balance 580 / 580 2009 Weight 122 kg Intake: IV 100 / 100 1200 / 1200 LR 1000 mL Inj 1,000 ML @ 84 1000 / 1000 mls/hr IV.CONT .[id number] [facility] Rx# :[id number] Zosyn 4.5 GM Premix 4.5 gm In 100 / 100 200 / 200 100 ml @ 200 mls/hr IV.SIG Q6H [facility] Rx#:[id number] Oral 480 / 480 810 / 810 Other: # Voids 3 6 Date of Last Bowel Movement 09/07/18 09/10/18 # Bowel Movements 0 1 - Routine Abdominal Exam Present: soft, tenderness (moderatedly tender epigastrium), guarding Results - Labs CBC & Chem 7: 09/10/18 04:31 09/10/18 04:31 Laboratory Results - last 24 hr 09/10/18 09/10/18 09/10/18 00:20 04:31 04:31 WBC 12.7 H RBC 4.26 L Hgb 13.6 Hct 39.3 MCV 92.4 MCH 32.0 MCHC 34.7 RDW 13.8 Plt Count 213 MPV 8.7 Neut % (Auto) 81.5 H Lymph % (Auto) 7.4 L [place] % (Auto) 7.9 Eos % (Auto) 2.6 Baso % (Auto) 0.6 Neut # (Auto) 10.3 H Lymph # (Auto) 0.9 L [place] # (Auto) 1.0 H Eos # (Auto) 0.3 Baso # (Auto) 0.1 WBC Differential . Differential Comment Auto diff final PT 10.2 INR 1.0 Sodium Potassium Chloride Carbon Dioxide Anion Gap BUN Creatinine Estimated GFR POC Glucose 93 Random Glucose Calcium Phosphorus Magnesium Total Bilirubin AST ALT Alkaline Phosphatase Total Protein Albumin Lipase 09/10/18 09/10/18 09/10/18 04:31 11:39 16:58 WBC RBC Hgb Hct MCV MCH MCHC RDW Plt Count MPV Neut % (Auto) Lymph % (Auto) [place] % (Auto) Eos % (Auto) Baso % (Auto) Neut # (Auto) Lymph # (Auto) [place] # (Auto) Eos # (Auto) Baso # (Auto) WBC Differential Differential Comment PT INR Sodium 135 L Potassium 3.5 Chloride 99 Carbon Dioxide 27.5 Anion Gap 9 BUN 16 Creatinine 1.06 Estimated GFR 70 L POC Glucose 96 90 Random Glucose 104 Calcium 7.9 L Phosphorus 1.9 L Magnesium 2.2 Total Bilirubin 3.2 H AST 74 H ALT 220 H Alkaline Phosphatase 176 H Total Protein 6.5 Albumin 2.6 L Lipase 248 Microbiology 09/08/18 10:50 Blood - Peripheral Aerobic Blood Culture - Preliminary No growth in 2 days 09/08/18 10:50 Blood - Peripheral Anaerobic Blood Culture - Preliminary No growth in 2 days 09/08/18 10:55 Blood - Peripheral Aerobic Blood Culture - Preliminary No growth in 2 days 09/08/18 10:55 Blood - Peripheral Anaerobic Blood Culture - Preliminary No growth in 2 days - Imaging Impressions Abdomen X-Ray 09/10/18 00:00 CONCLUSION: 1. Findings consistent with mild adynamic ileus. Assessment and Plan - Assessment (1) Acute pancreatitis Code(s): K85.90 - Acute pancreatitis without necrosis or infection, unspecified Status: Acute Plan: Pancreatitis improved; for repeat ERCP Wednesday Surgery in [facility] or locally depending on outcome of GI procedure. - Attending Attestation I attest that I had a [id number] encounter with the patient on the same day, and personally performed and documented my assessment and findings in the medical record. The following services were provided during this hospital visit: Chart data review, vital sign assessments/reviewing monitor data Review of consultation notes if present Medication orders/review and/or management Ordering and/or reviewing lab tests Ordering and/or interpreting/reviewing x-rays and/or diagnostic studies Care of the patient and discussion of the patient with the care team Documentation time To help prompt me to consider important information that might be impacting today's encounter and assessment, Information from prior notes written by myself or my colleagues may have been "brought forward/copy and pasted" into today's note. (1) Acute pancreatitis Qualifiers: Pancreatitis type: unspecified pancreatitis type Acute pancreatitis complication: unspecified Qualified Code(s): K85.90 - Acute pancreatitis without necrosis or infection, unspecified
[2018-09-11] MEDS ORDERED: Lisinopril 20 MG Tablet PO ONE (00:24)
[2018-09-11] MEDS: Piperacil/Tazo 4.5 GM Premix 4.5 GM/100 ML BAG IV.SIG SCH ×4 (00:59→20:35)
[2018-09-11] MEDS: Chlorhexidine Gluconate 2% 1 Pack (2 Cloths) TOPICAL SCH (04:28)
[2018-09-11 05:16] LABS: Baso % (Auto) 0.5 % (0.0-2.0); Eos # (Auto) 0.4 th/mm3 (0.0-0.4); Eos % (Auto) 4.7 % (0.0-4.0); Hematocrit 39.7 % (39.0-51.0); Hemoglobin 13.6 gm/dL (13.0-17.0); Lymph # (Auto) 0.8 th/mm3 (1.0-4.8); Lymph % (Auto) 8.8 % (9.0-44.0); Mean Corpuscular HGB Conc 34.2 % (32.0-36.0); Mean Corpuscular Hemoglobin 32.4 pg (27.0-34.0); Mean Corpuscular Volume 94.8 fL (80.0-100.0); Mean Platelet Volume 8.8 fL (7.0-11.0); Mono # (Auto) 0.8 th/mm3 (0.0-0.9); Mono % (Auto) 8.5 % (0.0-8.0); Neut # (Auto) 6.9 th/mm3 (1.8-7.7); Neut % (Auto) 77.5 % (16.0-70.0); Platelet Count 221 th/mm3 (150-450); Red Blood Count 4.19 mil/mm3 (4.50-5.90); Red Cell Distribution Width 13.9 % (11.6-17.2); White Blood Count 8.9 th/mm3 (4.0-11.0)
[2018-09-11 05:27] LABS: Prothrombin Time 10.5 sec (9.8-11.6)
[2018-09-11 05:36] LABS: Albumin 2.5 g/dL (3.4-5.0); Anion Gap 9 meq/L (5-15); Aspartate Aminotransferase 68 U/L (15-37); Blood Urea Nitrogen 13 mg/dL (7-18); Calcium 7.6 mg/dL (8.5-10.1); Carbon Dioxide 25.6 meq/L (21.0-32.0); Chloride 101 meq/L (98-107); Glomerular Filtration Rate 89 mL/min (>89); Glucose,Random 96 mg/dL (74-106); Lipase 275 U/L (73-393); Magnesium 2.1 mg/dL (1.5-2.5); Potassium 3.5 meq/L (3.5-5.1); Sodium 136 meq/L (136-145)
[2018-09-11 05:37] LABS: Alanine Aminotransferase 165 U/L (12-78); Phosphorus 2.2 mg/dL (2.5-4.9)
[2018-09-11 05:39] LABS: Alkaline Phosphatase 177 U/L (45-117); Total Protein 6.4 g/dL (6.4-8.2)
[2018-09-11] MEDS: HYDROmorphone PCA Inj 6 MG/30 ML PCA.VIAL PCA PRN (05:48)
[2018-09-11] MEDS: Insulin NovoLIN Regular Correctional Sugar Inj SQ SCH ×4 (05:52→23:21)
[2018-09-11] MEDS: Famotidine PF Inj 20 MG/2 ML Vial IV.PUSH SCH ×2 (07:59→20:36)
[2018-09-11] MEDS: Lisinopril 20 MG Tablet PO SCH (08:00)
[2018-09-11] MEDS: Heparin - SQ 10,000 UNITS/ML Vial SQ SCH ×2 (08:00→20:36)
--- NOTE | 2018-09-11 11:52 | P.PN ---
Subjective Interval history: Follow-up for acute pancreatitis, possible cholecystitis as well as cholangitis. He reports persistent epigastric pain. He had a small bowel movement this morning. No fever or chills. Physical Exam Vital signs: Vital Signs 09/10/18 15:00 09/10/18 16:00 09/10/18 19:15 Temperature 98.8 F 98.1 F Pulse Rate 88 86 Respiratory Rate 20 20 18 Blood Pressure 157/89 H 161/90 H Pulse Oximetry 96 95 09/10/18 20:00 09/10/18 23:42 09/11/18 03:13 Temperature 98.6 F 98.6 F Pulse Rate 79 78 Respiratory Rate 18 18 Blood Pressure 172/89 H 171/88 H Pulse Oximetry 95 95 97 09/11/18 07:38 09/11/18 07:44 09/11/18 09:52 Temperature 98.9 F Pulse Rate 81 Respiratory Rate 18 18 Blood Pressure 162/94 H Pulse Oximetry 95 96 09/11/18 10:53 Temperature Pulse Rate Respiratory Rate 17 Blood Pressure Pulse Oximetry Intake & Output 09/10/18 09/11/18 09/11/18 18:59 06:59 18:59 Intake Total 2009 200 / 200 100 / 100 Balance 2009 200 / 200 100 / 100 Weight 123.5 kg Intake: IV 1200 / 1200 200 / 200 100 / 100 LR 1000 mL Inj 1,000 ML @ 84 1000 / 1000 mls/hr IV.CONT .[id number] [facility] Rx# :[id number] Zosyn 4.5 GM Premix 4.5 gm In 200 / 200 200 / 200 100 / 100 100 ml @ 200 mls/hr IV.SIG Q6H [facility] Rx#:[id number] Oral 810 / 810 Other: # Voids 6 4 Date of Last Bowel Movement 09/10/18 09/10/18 09/10/18 # Bowel Movements 1 3 Narrative: GENERAL: Alert, NAD SKIN: Warm and dry. HEAD: Normocephalic. EYES: No scleral icterus. No injection or drainage. NECK: Supple, trachea midline. No JVD or lymphadenopathy. CARDIOVASCULAR: Regular rate and rhythm without murmurs, gallops, or rubs. RESPIRATORY: Breath sounds equal bilaterally. No accessory muscle use. GASTROINTESTINAL: Abdomen soft, somewhat distended, pain mostly in the epigastric area. MUSCULOSKELETAL: No cyanosis, or edema. BACK: Nontender without obvious deformity. No CVA tenderness. Results - Labs CBC & Chem 7: 09/11/18 04:18 09/11/18 04:18 Laboratory Results - last 24 hr 09/10/18 09/10/18 09/10/18 11:39 16:58 23:38 WBC RBC Hgb Hct MCV MCH MCHC RDW Plt Count MPV Neut % (Auto) Lymph % (Auto) [place] % (Auto) Eos % (Auto) Baso % (Auto) Neut # (Auto) Lymph # (Auto) [place] # (Auto) Eos # (Auto) Baso # (Auto) WBC Differential Differential Comment PT INR Sodium Potassium Chloride Carbon Dioxide Anion Gap BUN Creatinine Estimated GFR POC Glucose 96 90 96 Random Glucose Calcium Phosphorus Magnesium Total Bilirubin AST ALT Alkaline Phosphatase Total Protein Albumin Lipase Nasal Screen MRSA (PCR) 09/11/18 09/11/18 09/11/18 03:42 04:18 04:18 WBC 8.9 RBC 4.19 L Hgb 13.6 Hct 39.7 MCV 94.8 MCH 32.4 MCHC 34.2 RDW 13.9 Plt Count 221 MPV 8.8 Neut % (Auto) 77.5 H Lymph % (Auto) 8.8 L [place] % (Auto) 8.5 H Eos % (Auto) 4.7 H Baso % (Auto) 0.5 Neut # (Auto) 6.9 Lymph # (Auto) 0.8 L [place] # (Auto) 0.8 Eos # (Auto) 0.4 Baso # (Auto) 0.0 WBC Differential . Differential Comment Auto diff final PT 10.5 INR 1.0 Sodium Potassium Chloride Carbon Dioxide Anion Gap BUN Creatinine Estimated GFR POC Glucose Random Glucose Calcium Phosphorus Magnesium Total Bilirubin AST ALT Alkaline Phosphatase Total Protein Albumin Lipase Nasal Screen MRSA (PCR) Not detected 09/11/18 09/11/18 04:18 05:52 WBC RBC Hgb Hct MCV MCH MCHC RDW Plt Count MPV Neut % (Auto) Lymph % (Auto) [place] % (Auto) Eos % (Auto) Baso % (Auto) Neut # (Auto) Lymph # (Auto) [place] # (Auto) Eos # (Auto) Baso # (Auto) WBC Differential Differential Comment PT INR Sodium 136 Potassium 3.5 Chloride 101 Carbon Dioxide 25.6 Anion Gap 9 BUN 13 Creatinine 0.86 Estimated GFR 89 POC Glucose 88 Random Glucose 96 Calcium 7.6 L Phosphorus 2.2 L Magnesium 2.1 Total Bilirubin 2.3 H AST 68 H ALT 165 H Alkaline Phosphatase 177 H Total Protein 6.4 Albumin 2.5 L Lipase 275 Nasal Screen MRSA (PCR) Microbiology 09/08/18 10:50 Blood - Peripheral Aerobic Blood Culture - Preliminary No growth in 3 days 09/08/18 10:50 Blood - Peripheral Anaerobic Blood Culture - Preliminary No growth in 3 days 09/08/18 10:55 Blood - Peripheral Aerobic Blood Culture - Preliminary No growth in 3 days 09/08/18 10:55 Blood - Peripheral Anaerobic Blood Culture - Preliminary No growth in 3 days - Imaging Impressions Abdomen X-Ray 09/10/18 00:00 CONCLUSION: 1. Findings consistent with mild adynamic ileus. - Procedures 09/09/2018 IMPRESSIONS: The ampulla was small and difficult to locate with severe edema and inflammation from nearby pancreatitis RECOMMENDATIONS: 1. Combined procedure for any signs of cholangitis or worsening liver enzymes, otherwise repeat ERCP infew days when pancreas is less inflammed. 2. Liver enzymes daily REPEAT EXAM: Return 3 days ERCP Assessment and Plan - Plan Mr. Acosta is a pleasant 63-year-old with a history of hypertension, obesity who was admitted to the hospital on 09/07/2018 due to 5-day duration of worsening epigastric pain radiating to the back. His pain was not associated food although he reports progressively worsening anorexia. Upon admission, his lipase level was greater than 30,000, LFTs were elevated as well as bilirubin. CT abdomen pelvis confirmed acute pancreatitis. Patient subsequently underwent MRCP study which shows 2 stones in the common bile duct. Gastroenterology was consulted. Patient was initially managed in the ICU and subsequently care was transferred to the hospitalist service. Acute pancreatitis Acute cholangitis Probable acute cholecystitis Continue hydromorphone for pain control. Continue Zosyn 4.5 g every 6 hours. GI and general surgery are following. ERCP on 09/09/2018 was suboptimal. A repeat ERCP is planned probably on 09/12/2018. Adynamic Ileus We will continue bowel regimen. KUB shows ileus. Full code. Heparin for DVT prophylaxis.
--- NOTE | 2018-09-11 16:42 | P.PNGI ---
Subjective Interval history: Patient up ambulating in room to the restroom Reports continue generalized abdominal discomfort <Mcclure,Leighann - Last Filed: 09/11/18 16:17> Physical Exam Vital signs: Vital Signs 09/10/18 19:15 09/10/18 20:00 09/10/18 23:42 Temperature 98.1 F 98.6 F Pulse Rate 86 79 Respiratory Rate 18 18 Blood Pressure 161/90 H 172/89 H Pulse Oximetry 95 95 95 09/11/18 03:13 09/11/18 07:38 09/11/18 07:44 Temperature 98.6 F 98.9 F Pulse Rate 78 81 Respiratory Rate 18 18 18 Blood Pressure 171/88 H 162/94 H Pulse Oximetry 97 95 09/11/18 09:52 09/11/18 10:53 09/11/18 11:39 Temperature 98.9 F Pulse Rate 81 Respiratory Rate 17 18 Blood Pressure 163/88 H Pulse Oximetry 96 95 09/11/18 15:27 Temperature 98.5 F Pulse Rate 78 Respiratory Rate 18 Blood Pressure 166/88 H Pulse Oximetry 98 Intake & Output 09/10/18 09/11/18 09/11/18 18:59 06:59 18:59 Intake Total 2009 200 / 200 1100 / 1100 Balance 2009 200 / 200 1100 / 1100 Weight 123.5 kg Intake: IV 1200 / 1200 200 / 200 1100 / 1100 LR 1000 mL Inj 1,000 ML @ 84 1000 / 1000 1000 / 1000 mls/hr IV.CONT .[id number] [facility] Rx# :[id number] Zosyn 4.5 GM Premix 4.5 gm In 200 / 200 200 / 200 100 / 100 100 ml @ 200 mls/hr IV.SIG Q6H [facility] Rx#:[id number] Oral 810 / 810 Other: # Voids 6 4 Date of Last Bowel Movement 09/10/18 09/10/18 09/10/18 # Bowel Movements 1 3 - Constitutional no acute distress - Routine HEENT Exam Head: Present: normocephalic - Routine Respiratory Exam Present: CTA bilaterally - Routine Abdominal Exam Present: soft, normoactive bowel sounds, tenderness, distended. Absent: guarding, firm - Routine Skin Exam Present: dry, warm - Routine Neurological Exam Present: alert - Routine Psychiatric Exam Present: normal affect, cooperative <Mcclure,Leighann - Last Filed: 09/11/18 16:17> Vital signs: Vital Signs 09/11/18 20:00 09/11/18 23:46 09/12/18 03:55 Temperature 98.7 F 98.4 F 98.4 F Pulse Rate 90 80 78 Respiratory Rate 20 18 18 Blood Pressure 173/80 H 164/93 H 156/83 H Pulse Oximetry 98 95 96 09/12/18 07:00 09/12/18 11:00 09/12/18 15:00 Temperature 97.8 F 97.9 F 97.7 F Pulse Rate 81 71 68 Respiratory Rate 18 16 16 Blood Pressure 167/86 H 150/83 H 151/84 H Pulse Oximetry 97 97 97 Intake & Output 09/11/18 09/12/18 09/12/18 18:59 06:59 18:59 Intake Total 1920 / 1920 1450 / 1450 200 / 200 Balance 1920 / 1920 1450 / 1450 200 / 200 Weight 121 kg Intake: IV 1200 / 1200 1300 / 1300 200 / 200 LR 1000 mL Inj 1,000 ML @ 84 1000 / 1000 1100 / 1100 mls/hr IV.CONT .[id number] [facility] Rx# :[id number] Zosyn 4.5 GM Premix 4.5 gm In 200 / 200 200 / 200 200 / 200 100 ml @ 200 mls/hr IV.SIG Q6H [facility] Rx#:[id number] Oral 720 / 720 150 / 150 Other: # Voids 6 4 Date of Last Bowel Movement 09/10/18 09/10/18 09/11/18 <Mar Hogue - Last Filed: 09/12/18 17:31> Results - Labs CBC & Chem 7: 09/11/18 04:18 09/11/18 04:18 Laboratory Results - last 24 hr 09/10/18 09/10/18 09/11/18 16:58 23:38 03:42 WBC RBC Hgb Hct MCV MCH MCHC RDW Plt Count MPV Neut % (Auto) Lymph % (Auto) [place] % (Auto) Eos % (Auto) Baso % (Auto) Neut # (Auto) Lymph # (Auto) [place] # (Auto) Eos # (Auto) Baso # (Auto) WBC Differential Differential Comment PT INR Sodium Potassium Chloride Carbon Dioxide Anion Gap BUN Creatinine Estimated GFR POC Glucose 90 96 Random Glucose Calcium Phosphorus Magnesium Total Bilirubin AST ALT Alkaline Phosphatase Total Protein Albumin Lipase Nasal Screen MRSA (PCR) Not detected 09/11/18 09/11/18 09/11/18 04:18 04:18 04:18 WBC 8.9 RBC 4.19 L Hgb 13.6 Hct 39.7 MCV 94.8 MCH 32.4 MCHC 34.2 RDW 13.9 Plt Count 221 MPV 8.8 Neut % (Auto) 77.5 H Lymph % (Auto) 8.8 L [place] % (Auto) 8.5 H Eos % (Auto) 4.7 H Baso % (Auto) 0.5 Neut # (Auto) 6.9 Lymph # (Auto) 0.8 L [place] # (Auto) 0.8 Eos # (Auto) 0.4 Baso # (Auto) 0.0 WBC Differential . Differential Comment Auto diff final PT 10.5 INR 1.0 Sodium 136 Potassium 3.5 Chloride 101 Carbon Dioxide 25.6 Anion Gap 9 BUN 13 Creatinine 0.86 Estimated GFR 89 POC Glucose Random Glucose 96 Calcium 7.6 L Phosphorus 2.2 L Magnesium 2.1 Total Bilirubin 2.3 H AST 68 H ALT 165 H Alkaline Phosphatase 177 H Total Protein 6.4 Albumin 2.5 L Lipase 275 Nasal Screen MRSA (PCR) 09/11/18 09/11/18 05:52 11:25 WBC RBC Hgb Hct MCV MCH MCHC RDW Plt Count MPV Neut % (Auto) Lymph % (Auto) [place] % (Auto) Eos % (Auto) Baso % (Auto) Neut # (Auto) Lymph # (Auto) [place] # (Auto) Eos # (Auto) Baso # (Auto) WBC Differential Differential Comment PT INR Sodium Potassium Chloride Carbon Dioxide Anion Gap BUN Creatinine Estimated GFR POC Glucose 88 95 Random Glucose Calcium Phosphorus Magnesium Total Bilirubin AST ALT Alkaline Phosphatase Total Protein Albumin Lipase Nasal Screen MRSA (PCR) Microbiology 09/08/18 10:50 Blood - Peripheral Aerobic Blood Culture - Preliminary No growth in 3 days 09/08/18 10:50 Blood - Peripheral Anaerobic Blood Culture - Preliminary No growth in 3 days 09/08/18 10:55 Blood - Peripheral Aerobic Blood Culture - Preliminary No growth in 3 days 09/08/18 10:55 Blood - Peripheral Anaerobic Blood Culture - Preliminary No growth in 3 days - Procedures 09/09/2018 IMPRESSIONS: The ampulla was small and difficult to locate with severe edema and inflammation from nearby pancreatitis RECOMMENDATIONS: 1. Combined procedure for any signs of cholangitis or worsening liver enzymes, otherwise repeat ERCP infew days when pancreas is less inflammed. 2. Liver enzymes daily REPEAT EXAM: Return 3 days ERCP <Leighann Mcclure - Last Filed: 09/11/18 16:17> - Labs CBC & Chem 7: 09/12/18 04:58 09/12/18 04:58 Laboratory Results - last 24 hr 09/11/18 09/11/18 09/12/18 18:23 23:20 04:58 WBC 7.8 RBC 4.38 L Hgb 14.6 Hct 40.3 MCV 92.0 MCH 33.4 MCHC 36.3 H RDW 13.8 Plt Count 250 MPV 8.6 Prelim Diff (Auto) Slide review pending Neut % (Auto) 74.9 H Lymph % (Auto) 8.4 L [place] % (Auto) 10.5 H Eos % (Auto) 5.4 H Baso % (Auto) 0.8 Neut # (Auto) 5.9 Lymph # (Auto) 0.7 L [place] # (Auto) 0.8 Eos # (Auto) 0.4 Baso # (Auto) 0.1 WBC Differential . Diff Scan Auto diff confirmed Differential Comment . PT INR Sodium Potassium Chloride Carbon Dioxide Anion Gap BUN Creatinine Estimated GFR POC Glucose 131 H 89 Random Glucose Calcium Phosphorus Magnesium Total Bilirubin AST ALT Alkaline Phosphatase Total Protein Albumin Lipase 09/12/18 09/12/18 09/12/18 04:58 04:58 06:08 WBC RBC Hgb Hct MCV MCH MCHC RDW Plt Count MPV Prelim Diff (Auto) Neut % (Auto) Lymph % (Auto) [place] % (Auto) Eos % (Auto) Baso % (Auto) Neut # (Auto) Lymph # (Auto) [place] # (Auto) Eos # (Auto) Baso # (Auto) WBC Differential Diff Scan Differential Comment PT 10.4 INR 1.0 Sodium 136 Potassium 3.6 Chloride 101 Carbon Dioxide 27.3 Anion Gap 8 BUN 12 Creatinine 0.97 Estimated GFR 78 L POC Glucose 88 Random Glucose 94 Calcium 8.2 L Phosphorus 3.0 Magnesium 2.2 Total Bilirubin 1.9 H AST 68 H ALT 151 H Alkaline Phosphatase 204 H Total Protein 7.0 D Albumin 2.7 L Lipase 378 09/12/18 11:31 WBC RBC Hgb Hct MCV MCH MCHC RDW Plt Count MPV Prelim Diff (Auto) Neut % (Auto) Lymph % (Auto) [place] % (Auto) Eos % (Auto) Baso % (Auto) Neut # (Auto) Lymph # (Auto) [place] # (Auto) Eos # (Auto) Baso # (Auto) WBC Differential Diff Scan Differential Comment PT INR Sodium Potassium Chloride Carbon Dioxide Anion Gap BUN Creatinine Estimated GFR POC Glucose 87 Random Glucose Calcium Phosphorus Magnesium Total Bilirubin AST ALT Alkaline Phosphatase Total Protein Albumin Lipase Microbiology 09/08/18 10:50 Blood - Peripheral Aerobic Blood Culture - Preliminary No growth in 4 days 09/08/18 10:50 Blood - Peripheral Anaerobic Blood Culture - Preliminary No growth in 4 days 09/08/18 10:55 Blood - Peripheral Aerobic Blood Culture - Preliminary No growth in 4 days 09/08/18 10:55 Blood - Peripheral Anaerobic Blood Culture - Preliminary No growth in 4 days <Mar Hogue - Last Filed: 09/12/18 17:31> Assessment and Plan (1) Acute pancreatitis Status: Acute Code(s): K85.90 - Acute pancreatitis without necrosis or infection, unspecified (2) Transaminitis Status: Acute Code(s): R74.0 - Nonspecific elevation of levels of transaminase and lactic acid dehydrogenase [LDH] (3) Hyperbilirubinemia Status: Acute Code(s): E80.6 - Other disorders of bilirubin metabolism (4) Acute cholangitis Status: Acute Code(s): K83.09 - Other cholangitis - Plan This patient is a 63-year-old male with a past medical history significant for hypertension and obesity. Surgical history includes appendectomy patient presented to the emergency room at [facility] with complaint of upper mid abdominal pain for 1 week. Patient reporting epigastric pain that radiates to his back. Patient describes the pain as a sharp pain that was initially intermittent but became constant over the last 24-48 hours. Patient reports associated loss of appetite over the last week. Upon consultation, patient states abdominal pain with increasing nausea and vomiting since yesterday. Upon arrival CT abdomen and pelvis revealed acute pancreatitis. MRCP revealed 2 stones in the common bile duct. WBC within normal range.Patient denies any fever or chills. Patient denies any use of tobacco or alcohol products. Patient states he he has never had an EGD or colonoscopy in the past. Patient denies any heartburn or difficulty swallowing. States he has a normal brown soft bowel movement daily with no noted bleeding. Family history significant for both parents and siblings undergoing cholecystectomy. Patient states his father had history of gastric ulcers Acute pancreatitis Transaminitis Gallstone pancreatitis Possible cholangitis Patient endorses 1 week history of epigastric pain that radiates to back. Patient denies fever or chills. There is associated nausea and vomiting for the last 24-48 hours. -09/07/2018 CT abdomen and pelvis reveal the following--> 1. Moderate severity acute pancreatitis. No parenchymal necrosis demonstrated. No perceptible stones. 2. Gallbladder wall thickening. Also pericholecystic fluid. This may be reactive but superimposed acute cholecystitis is also in the differential. Additionally, there is robust mucosal enhancement of the common bile duct and the differential would include cholangitis. 3. Mild fatty infiltrated liver. No focal lesion. 4. Diverticulosis of the sigmoid colon. No diverticulitis or other acute inflammatory changes of the gastrointestinal tract. 5. 1.9 cm left adrenal nodule. I don't have any pertinent priors. This is nonspecific but statistically most likely a benign adenoma. 6. Heterogeneous enlargement of the prostate. 7. Atherosclerotic aorta. No aneurysm. -09/07/2018 MRCP revealed the following--> 1. Cholelithiasis; one large and too numerous to count tiny gravel-like stones within the gallbladder as described. 2. At least 2 tiny stones are present in the distal common bile duct. No biliary distention. 3. I believe one of the tiny stones is also present in the cystic duct. 4. Gallbladder wall thickening and pericholecystic fluid. Phrygian cap versus walled off abscess/rupture adjacent to the fundus. 5. Acute pancreatitis without associated abscess. -09/08/2018 WBC 7.6 hemoglobin 14.7 hematocrit 42.7 INR 1.0 d-dimer 10.11 ( chest CTA reveals no pulmonary embolus) Total bilirubin 5.5 GGT 599 AST 243 ALT 485 alk phos 199 lipase 2316 09/10/2018 Acute pancreatitis Transaminitis Gallstone pancreatitis -Patient reports mildly improved abdominal discomfort. Denies any nausea or vomiting. States tolerating clear liquids well. -09/09/2018 ERCP: The ampulla was small and difficult to locate with severe edema and inflammation from nearby pancreatitis. -09/10/2018 WBC 12.7 hemoglobin 13.6 hematocrit 39.7 platelet count 213 Total bilirubin 3.2 AST 74 ALT 220 alk phos 176 lipase 248 all trending down 09/11/2018 Patient reporting mild generalized abdominal discomfort continues. Denies any nausea or vomiting. WBC 8.9 hemoglobin 13.6 hematocrit 39.7 platelet count 229 Total bilirubin 2.3 AST 68 ALT 165 alk phos 177 all trending down, lipase 275 Plan -Clear liquid diet -Analgesics and antiemetics as per attending -ERCP in ~2 days -Continue IV antibiotics and IV hydration -Monitor liver function tests and lipase level -Supportive care -Further recommendations to follow This patient has been seen by myself and Dr. Hogue and this note is written on his behalf - Attending Attestation Dr. Hogue <Leighann Mcclure - Last Filed: 09/11/18 16:17> (1) Acute pancreatitis Status: Acute Code(s): K85.90 - Acute pancreatitis without necrosis or infection, unspecified (2) Transaminitis Status: Acute Code(s): R74.0 - Nonspecific elevation of levels of transaminase and lactic acid dehydrogenase [LDH] (3) Hyperbilirubinemia Status: Acute Code(s): E80.6 - Other disorders of bilirubin metabolism (4) Acute cholangitis Status: Acute Code(s): K83.09 - Other cholangitis - Attending Attestation As above, improving clinically and by labs. Will plan second attempt ERCP Wednesday. Further recommendations to follow. <Mar Hogue - Last Filed: 09/12/18 17:31> <Leighann Mcclure - Last Filed: 09/11/18 16:17> (1) Acute pancreatitis Qualifiers: Pancreatitis type: unspecified pancreatitis type Acute pancreatitis complication: unspecified Qualified Code(s): K85.90 - Acute pancreatitis without necrosis or infection, unspecified <Mar Hogue - Last Filed: 09/12/18 17:31> (1) Acute pancreatitis Qualifiers: Pancreatitis type: unspecified pancreatitis type Acute pancreatitis complication: unspecified Qualified Code(s): K85.90 - Acute pancreatitis without necrosis or infection, unspecified
--- NOTE | 2018-09-11 18:48 | P.PNGS ---
Subjective Patient reports: still having pain, nausea, shortness of breath Physical Exam Vital signs: Vital Signs 09/10/18 19:15 09/10/18 20:00 09/10/18 23:42 Temperature 98.1 F 98.6 F Pulse Rate 86 79 Respiratory Rate 18 18 Blood Pressure 161/90 H 172/89 H Pulse Oximetry 95 95 95 09/11/18 03:13 09/11/18 07:38 09/11/18 07:44 Temperature 98.6 F 98.9 F Pulse Rate 78 81 Respiratory Rate 18 18 18 Blood Pressure 171/88 H 162/94 H Pulse Oximetry 97 95 09/11/18 09:52 09/11/18 10:53 09/11/18 11:39 Temperature 98.9 F Pulse Rate 81 Respiratory Rate 17 18 Blood Pressure 163/88 H Pulse Oximetry 96 95 09/11/18 15:27 Temperature 98.5 F Pulse Rate 78 Respiratory Rate 18 Blood Pressure 166/88 H Pulse Oximetry 98 Intake & Output 09/10/18 09/11/18 09/11/18 18:59 06:59 18:59 Intake Total 2009 200 / 200 1920 / 1920 Balance 2009 200 / 200 1920 / 1920 Weight 123.5 kg Intake: IV 1200 / 1200 200 / 200 1200 / 1200 LR 1000 mL Inj 1,000 ML @ 84 1000 / 1000 1000 / 1000 mls/hr IV.CONT .[id number] [facility], 1928–1983 Rx# :[id number] Zosyn 4.5 GM Premix 4.5 gm In 200 / 200 200 / 200 200 / 200 100 ml @ 200 mls/hr IV.SIG Q6H [facility], [facility]–1983 Rx#:[id number] Oral 810 / 810 720 / 720 Other: # Voids 6 4 6 Date of Last Bowel Movement 09/10/18 09/10/18 09/10/18 # Bowel Movements 1 3 - Routine Abdominal Exam Present: soft, tenderness, distended Results - Labs 09/11/18 04:18 09/11/18 04:18 Laboratory Results - last 24 hr 09/10/18 09/11/18 09/11/18 23:38 03:42 04:18 WBC 8.9 RBC 4.19 L Hgb 13.6 Hct 39.7 MCV 94.8 MCH 32.4 MCHC 34.2 RDW 13.9 Plt Count 221 MPV 8.8 Neut % (Auto) 77.5 H Lymph % (Auto) 8.[address] [place] % (Auto) 8.5 H Eos % (Auto) 4.7 H Baso % (Auto) 0.5 Neut # (Auto) 6.9 Lymph # (Auto) 0.[address] [place] # (Auto) 0.8 Eos # (Auto) 0.4 Baso # (Auto) 0.0 WBC Differential . Differential Comment Auto diff final PT INR Sodium Potassium Chloride Carbon Dioxide Anion Gap BUN Creatinine Estimated GFR POC Glucose 96 Random Glucose Calcium Phosphorus Magnesium Total Bilirubin AST ALT Alkaline Phosphatase Total Protein Albumin Lipase Nasal Screen MRSA (PCR) Not detected 09/11/18 09/11/18 09/11/18 04:18 04:18 05:52 WBC RBC Hgb Hct MCV MCH MCHC RDW Plt Count MPV Neut % (Auto) Lymph % (Auto) [place] % (Auto) Eos % (Auto) Baso % (Auto) Neut # (Auto) Lymph # (Auto) [place] # (Auto) Eos # (Auto) Baso # (Auto) WBC Differential Differential Comment PT 10.5 INR 1.0 Sodium 136 Potassium 3.5 Chloride 101 Carbon Dioxide 25.6 Anion Gap 9 BUN 13 Creatinine 0.86 Estimated GFR 89 POC Glucose 88 Random Glucose 96 Calcium 7.6 L Phosphorus 2.2 L Magnesium 2.1 Total Bilirubin 2.3 H AST 68 H ALT 165 H Alkaline Phosphatase 177 H Total Protein 6.4 Albumin 2.5 L Lipase 275 Nasal Screen MRSA (PCR) 09/11/18 09/11/18 11:25 18:23 WBC RBC Hgb Hct MCV MCH MCHC RDW Plt Count MPV Neut % (Auto) Lymph % (Auto) [place] % (Auto) Eos % (Auto) Baso % (Auto) Neut # (Auto) Lymph # (Auto) [place] # (Auto) Eos # (Auto) Baso # (Auto) WBC Differential Differential Comment PT INR Sodium Potassium Chloride Carbon Dioxide Anion Gap BUN Creatinine Estimated GFR POC Glucose 95 131 H Random Glucose Calcium Phosphorus Magnesium Total Bilirubin AST ALT Alkaline Phosphatase Total Protein Albumin Lipase Nasal Screen MRSA (PCR) - Imaging Imaging: ITS Impressions Cholangiopancreatography MRI 09/07/18 00:00 CONCLUSION: 1. Cholelithiasis; one large and too numerous to count tiny gravel-like stones within the gallbladder as described. 2. At least 2 tiny stones are present in the distal common bile duct. No biliary distention. 3. I believe one of the tiny stones is also present in the cystic duct. 4. Gallbladder wall thickening and pericholecystic fluid. Phrygian cap versus walled off abscess/rupture adjacent to the fundus. 5. Acute pancreatitis without associated abscess. Chest X-Ray 09/07/18 16:02 CONCLUSION: No evidence of acute cardiopulmonary process. Abdomen/Pelvis CT 09/07/18 17:59 CONCLUSION: 1. Moderate severity acute pancreatitis. No parenchymal necrosis demonstrated. No perceptible stones. 2. Gallbladder wall thickening. Also pericholecystic fluid. This may be reactive but superimposed acute cholecystitis is also in the differential. Additionally, there is robust mucosal enhancement of the common bile duct and the differential would include cholangitis. 3. Mild fatty infiltrated liver. No focal lesion. 4. Diverticulosis of the sigmoid colon. No diverticulitis or other acute inflammatory changes of the gastrointestinal tract. 5. 1.9 cm left adrenal nodule. I don't have any pertinent priors. This is nonspecific but statistically most likely a benign adenoma. 6. Heterogeneous enlargement of the prostate. 7. Atherosclerotic aorta. No aneurysm. Chest CTA 09/07/18 17:59 CONCLUSION: 1. No pulmonary embolus. 2. Nonspecific 8 mm right upper lobe pulmonary nodule. Six-month follow-up noncontrast chest CT is recommended. 3. Mild dependent atelectasis of both lung bases. 4. Coronary artery calcification. 5. Small hiatal hernia. Abdomen X-Ray 09/10/18 00:00 CONCLUSION: 1. Findings consistent with mild adynamic ileus. Assessment and Plan - Assessment (1) Acute pancreatitis Code(s): K85.90 - Acute pancreatitis without necrosis or infection, unspecified Status: Acute Plan: 63 year old male gallstone pancreatitis -Patient with distal CBD stones---ERCP planned for today -NPO -IVF -Pain control -Patient can likely benefit from bowel regimen post ERCP -Will continue to follow patient --- laparoscopic cholecystectomy can be done inpatient once pancreatitis resolves vs laparoscopic cholecystectomy by a surgeon [place] -Thank you for this consult; We will continue to follow - Plan pancreatitis supportive care CBD stones per GI. repeat ERCP pending. likely lap almaz back in [place]. will follow, (1) Acute pancreatitis Qualifiers: Pancreatitis type: unspecified pancreatitis type Acute pancreatitis complication: unspecified Qualified Code(s): K85.90 - Acute pancreatitis without necrosis or infection, unspecified
[2018-09-12] MEDS: Piperacil/Tazo 4.5 GM Premix 4.5 GM/100 ML BAG IV.SIG SCH ×4 (00:36→19:40)
[2018-09-12] MEDS: Chlorhexidine Gluconate 2% 1 Pack (2 Cloths) TOPICAL SCH (04:14)
[2018-09-12 05:47] LABS: Baso # (Auto) 0.1 th/mm3 (0.0-0.2); Baso % (Auto) 0.8 % (0.0-2.0); Eos # (Auto) 0.4 th/mm3 (0.0-0.4); Eos % (Auto) 5.4 % (0.0-4.0); Hematocrit 40.3 % (39.0-51.0); Hemoglobin 14.6 gm/dL (13.0-17.0); Lymph # (Auto) 0.7 th/mm3 (1.0-4.8); Lymph % (Auto) 8.4 % (9.0-44.0); Mean Corpuscular Hemoglobin 33.4 pg (27.0-34.0); Mean Platelet Volume 8.6 fL (7.0-11.0); Mono # (Auto) 0.8 th/mm3 (0.0-0.9); Mono % (Auto) 10.5 % (0.0-8.0); Neut # (Auto) 5.9 th/mm3 (1.8-7.7); Neut % (Auto) 74.9 % (16.0-70.0); Platelet Count 250 th/mm3 (150-450); Red Blood Count 4.38 mil/mm3 (4.50-5.90); Red Cell Distribution Width 13.8 % (11.6-17.2); White Blood Count 7.8 th/mm3 (4.0-11.0)
[2018-09-12 05:58] LABS: Prothrombin Time 10.4 sec (9.8-11.6)
[2018-09-12 06:03] LABS: Mean Corpuscular HGB Conc 36.3 % (32.0-36.0)
[2018-09-12 06:08] LABS: Albumin 2.7 g/dL (3.4-5.0); Anion Gap 8 meq/L (5-15); Aspartate Aminotransferase 68 U/L (15-37); Blood Urea Nitrogen 12 mg/dL (7-18); Calcium 8.2 mg/dL (8.5-10.1); Carbon Dioxide 27.3 meq/L (21.0-32.0); Chloride 101 meq/L (98-107); Glomerular Filtration Rate 78 mL/min (>89); Glucose,Random 94 mg/dL (74-106); Lipase 378 U/L (73-393); Magnesium 2.2 mg/dL (1.5-2.5); Potassium 3.6 meq/L (3.5-5.1); Sodium 136 meq/L (136-145)
[2018-09-12 06:09] LABS: Alanine Aminotransferase 151 U/L (12-78)
[2018-09-12] MEDS: Insulin NovoLIN Regular Correctional Sugar Inj SQ SCH ×3 (06:09→17:44)
[2018-09-12 06:11] LABS: Alkaline Phosphatase 204 U/L (45-117)
[2018-09-12] MEDS: Heparin - SQ 10,000 UNITS/ML Vial SQ SCH ×2 (09:07→22:44)
[2018-09-12] MEDS: Famotidine PF Inj 20 MG/2 ML Vial IV.PUSH SCH ×2 (09:07→22:44)
[2018-09-12] MEDS: Lisinopril 20 MG Tablet PO SCH (09:08)
--- NOTE | 2018-09-12 12:49 | P.PN ---
Subjective Interval history: Follow-up for acute pancreatitis, possible cholecystitis as well as cholangitis. Patient is currently doing well. He reports persistent abdominal pain mostly in the epigastric area. He has had bowel movements. No fever or chills. Physical Exam Vital signs: Vital Signs 09/11/18 15:27 09/11/18 20:00 09/11/18 23:46 Temperature 98.5 F 98.7 F 98.4 F Pulse Rate 78 90 80 Respiratory Rate Blood Pressure 166/88 H 173/80 H 164/93 H Pulse Oximetry 98 98 95 09/12/18 03:55 09/12/18 07:00 09/12/18 11:00 Temperature 98.4 F 97.8 F 97.9 F Pulse Rate 78 81 71 Respiratory Rate 16 Blood Pressure 156/83 H 167/86 H 150/83 H Pulse Oximetry 96 97 97 Intake & Output 09/11/18 09/12/18 09/12/18 18:59 06:59 18:59 Intake Total 1920 / 1920 1450 / 1450 100 / 100 Balance 1920 / 1920 1450 / 1450 100 / 100 Weight 121 kg Intake: IV 1200 / 1200 1300 / 1300 100 / 100 LR 1000 mL Inj 1,000 ML @ 84 1000 / 1000 1100 / 1100 mls/hr IV.CONT .[id number] [facility] Rx# :[id number] Zosyn 4.5 GM Premix 4.5 gm In 200 / 200 200 / 200 100 / 100 100 ml @ 200 mls/hr IV.SIG Q6H [facility] Rx#:[id number] Oral 720 / 720 150 / 150 Other: # Voids 6 4 Date of Last Bowel Movement 09/10/18 09/10/18 09/11/18 Narrative: GENERAL: Alert, NAD SKIN: Warm and dry. HEAD: Normocephalic. EYES: No scleral icterus. No injection or drainage. NECK: Supple, trachea midline. No JVD or lymphadenopathy. CARDIOVASCULAR: Regular rate and rhythm without murmurs, gallops, or rubs. RESPIRATORY: Breath sounds equal bilaterally. No accessory muscle use. GASTROINTESTINAL: Abdomen soft, somewhat distended, pain mostly in the epigastric area. MUSCULOSKELETAL: No cyanosis, or edema. BACK: Nontender without obvious deformity. No CVA tenderness. Results - Labs CBC & Chem 7: 09/12/18 04:58 09/12/18 04:58 Laboratory Results - last 24 hr 09/11/18 09/11/18 09/12/18 18:23 23:20 04:58 WBC 7.8 RBC 4.38 L Hgb 14.6 Hct 40.3 MCV 92.0 MCH 33.4 MCHC 36.3 H RDW 13.8 Plt Count 250 MPV 8.6 Prelim Diff (Auto) Slide review pending Neut % (Auto) 74.9 H Lymph % (Auto) 8.4 L [place] % (Auto) 10.5 H Eos % (Auto) 5.4 H Baso % (Auto) 0.8 Neut # (Auto) 5.9 Lymph # (Auto) 0.7 L [place] # (Auto) 0.8 Eos # (Auto) 0.4 Baso # (Auto) 0.1 WBC Differential . Diff Scan Auto diff confirmed Differential Comment . PT INR Sodium Potassium Chloride Carbon Dioxide Anion Gap BUN Creatinine Estimated GFR POC Glucose 131 H 89 Random Glucose Calcium Phosphorus Magnesium Total Bilirubin AST ALT Alkaline Phosphatase Total Protein Albumin Lipase 09/12/18 09/12/18 09/12/18 04:58 04:58 06:08 WBC RBC Hgb Hct MCV MCH MCHC RDW Plt Count MPV Prelim Diff (Auto) Neut % (Auto) Lymph % (Auto) [place] % (Auto) Eos % (Auto) Baso % (Auto) Neut # (Auto) Lymph # (Auto) [place] # (Auto) Eos # (Auto) Baso # (Auto) WBC Differential Diff Scan Differential Comment PT 10.4 INR 1.0 Sodium 136 Potassium 3.6 Chloride 101 Carbon Dioxide 27.3 Anion Gap 8 BUN 12 Creatinine 0.97 Estimated GFR 78 L POC Glucose 88 Random Glucose 94 Calcium 8.2 L Phosphorus 3.0 Magnesium 2.2 Total Bilirubin 1.9 H AST 68 H ALT 151 H Alkaline Phosphatase 204 H Total Protein 7.0 D Albumin 2.7 L Lipase 378 09/12/18 11:31 WBC RBC Hgb Hct MCV MCH MCHC RDW Plt Count MPV Prelim Diff (Auto) Neut % (Auto) Lymph % (Auto) [place] % (Auto) Eos % (Auto) Baso % (Auto) Neut # (Auto) Lymph # (Auto) [place] # (Auto) Eos # (Auto) Baso # (Auto) WBC Differential Diff Scan Differential Comment PT INR Sodium Potassium Chloride Carbon Dioxide Anion Gap BUN Creatinine Estimated GFR POC Glucose 87 Random Glucose Calcium Phosphorus Magnesium Total Bilirubin AST ALT Alkaline Phosphatase Total Protein Albumin Lipase Microbiology 09/08/18 10:50 Blood - Peripheral Aerobic Blood Culture - Preliminary No growth in 4 days 09/08/18 10:50 Blood - Peripheral Anaerobic Blood Culture - Preliminary No growth in 4 days 09/08/18 10:55 Blood - Peripheral Aerobic Blood Culture - Preliminary No growth in 4 days 09/08/18 10:55 Blood - Peripheral Anaerobic Blood Culture - Preliminary No growth in 4 days - Procedures 09/09/2018 IMPRESSIONS: The ampulla was small and difficult to locate with severe edema and inflammation from nearby pancreatitis RECOMMENDATIONS: 1. Combined procedure for any signs of cholangitis or worsening liver enzymes, otherwise repeat ERCP infew days when pancreas is less inflammed. 2. Liver enzymes daily REPEAT EXAM: Return 3 days ERCP Assessment and Plan - Plan Mr. Acosta is a pleasant 63-year-old with a history of hypertension, obesity who was admitted to the hospital on 09/07/2018 due to 5-day duration of worsening epigastric pain radiating to the back. His pain was not associated food although he reports progressively worsening anorexia. Upon admission, his lipase level was greater than 30,000, LFTs were elevated as well as bilirubin. CT abdomen pelvis confirmed acute pancreatitis. Patient subsequently underwent MRCP study which shows 2 stones in the common bile duct. Gastroenterology was consulted. Patient was initially managed in the ICU and subsequently care was transferred to the hospitalist service. Acute pancreatitis Acute cholangitis Probable acute cholecystitis Continue hydromorphone for pain control. Continue Zosyn 4.5 g every 6 hours. GI and general surgery are following. ERCP on 09/09/2018 was suboptimal. A repeat ERCP is planned probably on 09/13/2018. Adynamic Ileus We will continue bowel regimen. KUB shows ileus. Patient has had bowel movements. Bowel sounds positive on physical exam. Full code. Heparin for DVT prophylaxis.
--- NOTE | 2018-09-12 13:28 | P.PNGI ---
Subjective Interval history: Patient sitting up in bed Denies any nausea or vomiting Reports mild abdominal pain <Mcclure,Leighann - Last Filed: 09/12/18 17:31> Physical Exam Vital signs: Vital Signs 09/11/18 15:27 09/11/18 20:00 09/11/18 23:46 Temperature 98.5 F 98.7 F 98.4 F Pulse Rate 78 90 80 Respiratory Rate 18 20 18 Blood Pressure 166/88 H 173/80 H 164/93 H Pulse Oximetry 98 98 95 09/12/18 03:55 09/12/18 07:00 09/12/18 11:00 Temperature 98.4 F 97.8 F 97.9 F Pulse Rate 78 81 71 Respiratory Rate 18 18 16 Blood Pressure 156/83 H 167/86 H 150/83 H Pulse Oximetry 96 97 97 Intake & Output 09/11/18 09/12/18 09/12/18 18:59 06:59 18:59 Intake Total 1920 / 1920 1450 / 1450 100 / 100 Balance 1920 / 1920 1450 / 1450 100 / 100 Weight 121 kg Intake: IV 1200 / 1200 1300 / 1300 100 / 100 LR 1000 mL Inj 1,000 ML @ 84 1000 / 1000 1100 / 1100 mls/hr IV.CONT .[id number] GABRIELA Rx# :[id number] Zosyn 4.5 GM Premix 4.5 gm In 200 / 200 200 / 200 100 / 100 100 ml @ 200 mls/hr IV.SIG Q6H GABRIELA Rx#:[id number] Oral 720 / 720 150 / 150 Other: # Voids 6 4 Date of Last Bowel Movement 09/10/18 09/10/18 09/11/18 - Constitutional no acute distress - Routine HEENT Exam Head: Present: normocephalic - Routine Respiratory Exam Present: CTA bilaterally. Absent: accessory muscle use - Routine Abdominal Exam Present: soft, normoactive bowel sounds, distended. Absent: tenderness, guarding, firm - Routine Extremities Exam Absent: edema - Routine Skin Exam Present: dry, warm - Routine Neurological Exam Present: alert <Mcclure,Leighann - Last Filed: 09/12/18 17:31> Vital signs: Vital Signs 09/11/18 20:00 09/11/18 23:46 09/12/18 03:55 Temperature 98.7 F 98.4 F 98.4 F Pulse Rate 90 80 78 Respiratory Rate 20 18 18 Blood Pressure 173/80 H 164/93 H 156/83 H Pulse Oximetry 98 95 96 09/12/18 07:00 09/12/18 11:00 09/12/18 15:00 Temperature 97.8 F 97.9 F 97.7 F Pulse Rate 81 71 68 Respiratory Rate 18 16 16 Blood Pressure 167/86 H 150/83 H 151/84 H Pulse Oximetry 97 97 97 Intake & Output 09/11/18 09/12/18 09/12/18 18:59 06:59 18:59 Intake Total 1920 / 1920 1450 / 1450 200 / 200 Balance 1920 / 1920 1450 / 1450 200 / 200 Weight 121 kg Intake: IV 1200 / 1200 1300 / 1300 200 / 200 LR 1000 mL Inj 1,000 ML @ 84 1000 / 1000 1100 / 1100 mls/hr IV.CONT .[id number] GABRIELA Rx# :[id number] Zosyn 4.5 GM Premix 4.5 gm In 200 / 200 200 / 200 200 / 200 100 ml @ 200 mls/hr IV.SIG Q6H GABRIELA Rx#:[id number] Oral 720 / 720 150 / 150 Other: # Voids 6 4 Date of Last Bowel Movement 09/10/18 09/10/18 09/11/18 <Mar Perez A - Last Filed: 09/12/18 17:34> Results - Labs CBC & Chem 7: 09/12/18 04:58 09/12/18 04:58 Laboratory Results - last 24 hr 09/11/18 09/11/18 09/12/18 18:23 23:20 04:58 WBC 7.8 RBC 4.38 L Hgb 14.6 Hct 40.3 MCV 92.0 MCH 33.4 MCHC 36.3 H RDW 13.8 Plt Count 250 MPV 8.6 Prelim Diff (Auto) Slide review pending Neut % (Auto) 74.9 H Lymph % (Auto) 8.4 L [place] % (Auto) 10.5 H Eos % (Auto) 5.4 H Baso % (Auto) 0.8 Neut # (Auto) 5.9 Lymph # (Auto) 0.7 L [place] # (Auto) 0.8 Eos # (Auto) 0.4 Baso # (Auto) 0.1 WBC Differential . Diff Scan Auto diff confirmed Differential Comment . PT INR Sodium Potassium Chloride Carbon Dioxide Anion Gap BUN Creatinine Estimated GFR POC Glucose 131 H 89 Random Glucose Calcium Phosphorus Magnesium Total Bilirubin AST ALT Alkaline Phosphatase Total Protein Albumin Lipase 09/12/18 09/12/18 09/12/18 04:58 04:58 06:08 WBC RBC Hgb Hct MCV MCH MCHC RDW Plt Count MPV Prelim Diff (Auto) Neut % (Auto) Lymph % (Auto) [place] % (Auto) Eos % (Auto) Baso % (Auto) Neut # (Auto) Lymph # (Auto) [place] # (Auto) Eos # (Auto) Baso # (Auto) WBC Differential Diff Scan Differential Comment PT 10.4 INR 1.0 Sodium 136 Potassium 3.6 Chloride 101 Carbon Dioxide 27.3 Anion Gap 8 BUN 12 Creatinine 0.97 Estimated GFR 78 L POC Glucose 88 Random Glucose 94 Calcium 8.2 L Phosphorus 3.0 Magnesium 2.2 Total Bilirubin 1.9 H AST 68 H ALT 151 H Alkaline Phosphatase 204 H Total Protein 7.0 D Albumin 2.7 L Lipase 378 09/12/18 11:31 WBC RBC Hgb Hct MCV MCH MCHC RDW Plt Count MPV Prelim Diff (Auto) Neut % (Auto) Lymph % (Auto) [place] % (Auto) Eos % (Auto) Baso % (Auto) Neut # (Auto) Lymph # (Auto) [place] # (Auto) Eos # (Auto) Baso # (Auto) WBC Differential Diff Scan Differential Comment PT INR Sodium Potassium Chloride Carbon Dioxide Anion Gap BUN Creatinine Estimated GFR POC Glucose 87 Random Glucose Calcium Phosphorus Magnesium Total Bilirubin AST ALT Alkaline Phosphatase Total Protein Albumin Lipase Microbiology 09/08/18 10:50 Blood - Peripheral Aerobic Blood Culture - Preliminary No growth in 4 days 09/08/18 10:50 Blood - Peripheral Anaerobic Blood Culture - Preliminary No growth in 4 days 09/08/18 10:55 Blood - Peripheral Aerobic Blood Culture - Preliminary No growth in 4 days 09/08/18 10:55 Blood - Peripheral Anaerobic Blood Culture - Preliminary No growth in 4 days - Procedures 09/09/2018 IMPRESSIONS: The ampulla was small and difficult to locate with severe edema and inflammation from nearby pancreatitis RECOMMENDATIONS: 1. Combined procedure for any signs of cholangitis or worsening liver enzymes, otherwise repeat ERCP infew days when pancreas is less inflammed. 2. Liver enzymes daily REPEAT EXAM: Return 3 days ERCP <Leighann Mcclure - Last Filed: 09/12/18 17:31> - Labs CBC & Chem 7: 09/12/18 04:58 09/12/18 04:58 Laboratory Results - last 24 hr 09/11/18 09/11/18 09/12/18 18:23 23:20 04:58 WBC 7.8 RBC 4.38 L Hgb 14.6 Hct 40.3 MCV 92.0 MCH 33.4 MCHC 36.3 H RDW 13.8 Plt Count 250 MPV 8.6 Prelim Diff (Auto) Slide review pending Neut % (Auto) 74.9 H Lymph % (Auto) 8.4 L [place] % (Auto) 10.5 H Eos % (Auto) 5.4 H Baso % (Auto) 0.8 Neut # (Auto) 5.9 Lymph # (Auto) 0.7 L [place] # (Auto) 0.8 Eos # (Auto) 0.4 Baso # (Auto) 0.1 WBC Differential . Diff Scan Auto diff confirmed Differential Comment . PT INR Sodium Potassium Chloride Carbon Dioxide Anion Gap BUN Creatinine Estimated GFR POC Glucose 131 H 89 Random Glucose Calcium Phosphorus Magnesium Total Bilirubin AST ALT Alkaline Phosphatase Total Protein Albumin Lipase 09/12/18 09/12/18 09/12/18 04:58 04:58 06:08 WBC RBC Hgb Hct MCV MCH MCHC RDW Plt Count MPV Prelim Diff (Auto) Neut % (Auto) Lymph % (Auto) [place] % (Auto) Eos % (Auto) Baso % (Auto) Neut # (Auto) Lymph # (Auto) [place] # (Auto) Eos # (Auto) Baso # (Auto) WBC Differential Diff Scan Differential Comment PT 10.4 INR 1.0 Sodium 136 Potassium 3.6 Chloride 101 Carbon Dioxide 27.3 Anion Gap 8 BUN 12 Creatinine 0.97 Estimated GFR 78 L POC Glucose 88 Random Glucose 94 Calcium 8.2 L Phosphorus 3.0 Magnesium 2.2 Total Bilirubin 1.9 H AST 68 H ALT 151 H Alkaline Phosphatase 204 H Total Protein 7.0 D Albumin 2.7 L Lipase 378 09/12/18 09/12/18 11:31 17:29 WBC RBC Hgb Hct MCV MCH MCHC RDW Plt Count MPV Prelim Diff (Auto) Neut % (Auto) Lymph % (Auto) [place] % (Auto) Eos % (Auto) Baso % (Auto) Neut # (Auto) Lymph # (Auto) [place] # (Auto) Eos # (Auto) Baso # (Auto) WBC Differential Diff Scan Differential Comment PT INR Sodium Potassium Chloride Carbon Dioxide Anion Gap BUN Creatinine Estimated GFR POC Glucose 87 202 H Random Glucose Calcium Phosphorus Magnesium Total Bilirubin AST ALT Alkaline Phosphatase Total Protein Albumin Lipase Microbiology 09/08/18 10:50 Blood - Peripheral Aerobic Blood Culture - Preliminary No growth in 4 days 09/08/18 10:50 Blood - Peripheral Anaerobic Blood Culture - Preliminary No growth in 4 days 09/08/18 10:55 Blood - Peripheral Aerobic Blood Culture - Preliminary No growth in 4 days 09/08/18 10:55 Blood - Peripheral Anaerobic Blood Culture - Preliminary No growth in 4 days <Mar Perez - Last Filed: 09/12/18 17:34> Assessment and Plan (1) Acute pancreatitis Status: Acute Code(s): K85.90 - Acute pancreatitis without necrosis or infection, unspecified (2) Transaminitis Status: Acute Code(s): R74.0 - Nonspecific elevation of levels of transaminase and lactic acid dehydrogenase [LDH] (3) Hyperbilirubinemia Status: Acute Code(s): E80.6 - Other disorders of bilirubin metabolism (4) Acute cholangitis Status: Acute Code(s): K83.09 - Other cholangitis - Plan This patient is a 63-year-old male with a past medical history significant for hypertension and obesity. Surgical history includes appendectomy patient presented to the emergency room at [facility] with complaint of upper mid abdominal pain for 1 week. Patient reporting epigastric pain that radiates to his back. Patient describes the pain as a sharp pain that was initially intermittent but became constant over the last 24-48 hours. Patient reports associated loss of appetite over the last week. Upon consultation, patient states abdominal pain with increasing nausea and vomiting since yesterday. Upon arrival CT abdomen and pelvis revealed acute pancreatitis. MRCP revealed 2 stones in the common bile duct. WBC within normal range.Patient denies any fever or chills. Patient denies any use of tobacco or alcohol products. Patient states he he has never had an EGD or colonoscopy in the past. Patient denies any heartburn or difficulty swallowing. States he has a normal brown soft bowel movement daily with no noted bleeding. Family history significant for both parents and siblings undergoing cholecystectomy. Patient states his father had history of gastric ulcers Acute pancreatitis Transaminitis Gallstone pancreatitis Possible cholangitis Patient endorses 1 week history of epigastric pain that radiates to back. Patient denies fever or chills. There is associated nausea and vomiting for the last 24-48 hours. -09/07/2018 CT abdomen and pelvis reveal the following--> 1. Moderate severity acute pancreatitis. No parenchymal necrosis demonstrated. No perceptible stones. 2. Gallbladder wall thickening. Also pericholecystic fluid. This may be reactive but superimposed acute cholecystitis is also in the differential. Additionally, there is robust mucosal enhancement of the common bile duct and the differential would include cholangitis. 3. Mild fatty infiltrated liver. No focal lesion. 4. Diverticulosis of the sigmoid colon. No diverticulitis or other acute inflammatory changes of the gastrointestinal tract. 5. 1.9 cm left adrenal nodule. I don't have any pertinent priors. This is nonspecific but statistically most likely a benign adenoma. 6. Heterogeneous enlargement of the prostate. 7. Atherosclerotic aorta. No aneurysm. -09/07/2018 MRCP revealed the following--> 1. Cholelithiasis; one large and too numerous to count tiny gravel-like stones within the gallbladder as described. 2. At least 2 tiny stones are present in the distal common bile duct. No biliary distention. 3. I believe one of the tiny stones is also present in the cystic duct. 4. Gallbladder wall thickening and pericholecystic fluid. Phrygian cap versus walled off abscess/rupture adjacent to the fundus. 5. Acute pancreatitis without associated abscess. -09/08/2018 WBC 7.6 hemoglobin 14.7 hematocrit 42.7 INR 1.0 d-dimer 10.11 ( chest CTA reveals no pulmonary embolus) Total bilirubin 5.5 GGT 599 AST 243 ALT 485 alk phos 199 lipase 2316 09/10/2018 Acute pancreatitis Transaminitis Gallstone pancreatitis -Patient reports mildly improved abdominal discomfort. Denies any nausea or vomiting. States tolerating clear liquids well. -09/09/2018 ERCP: The ampulla was small and difficult to locate with severe edema and inflammation from nearby pancreatitis. -09/10/2018 WBC 12.7 hemoglobin 13.6 hematocrit 39.7 platelet count 213 Total bilirubin 3.2 AST 74 ALT 220 alk phos 176 lipase 248 all trending down 09/11/2018 Patient reporting mild generalized abdominal discomfort continues. Denies any nausea or vomiting. WBC 8.9 hemoglobin 13.6 hematocrit 39.7 platelet count 229 Total bilirubin 2.3 AST 68 ALT 165 alk phos 177 all trending down, lipase 275 09/12/2018 Patient reports mild abdominal pain generalized. 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 Denies any nausea or vomiting. WBC 7.8 hemoglobin 14.6 hematocrit 40.3 total bilirubin 1.98 AST 68 ALT 151 alk phos 204 lipase 378 Plan -Clear liquid diet -Analgesics and antiemetics as per attending -ERCP Wednesday -Continue IV antibiotics and IV hydration -Monitor liver function tests and lipase level -Supportive care -Further recommendations to follow This patient has been seen by myself and Dr. Perez and this note is written on his behalf - Attending Attestation Dr. Perez <Leighann Mcclure - Last Filed: 09/12/18 17:31> (1) Acute pancreatitis Status: Acute Code(s): K85.90 - Acute pancreatitis without necrosis or infection, unspecified (2) Transaminitis Status: Acute Code(s): R74.0 - Nonspecific elevation of levels of transaminase and lactic acid dehydrogenase [LDH] (3) Hyperbilirubinemia Status: Acute Code(s): E80.6 - Other disorders of bilirubin metabolism (4) Acute cholangitis Status: Acute Code(s): K83.09 - Other cholangitis - Attending Attestation Plan as above. Will advance diet slowly and ERCP Wednesday. <Mar Perez - Last Filed: 09/12/18 17:34> <Mar Perez - Last Filed: 09/12/18 17:34> (1) Acute pancreatitis Qualifiers: Pancreatitis type: unspecified pancreatitis type Acute pancreatitis complication: unspecified Qualified Code(s): K85.90 - Acute pancreatitis without necrosis or infection, unspecified
--- NOTE | 2018-09-12 17:44 | P.PNGS ---
Subjective Patient reports: feels better (Tolerating clear liquids. Anticipating repeat ERCP tomorrow.) Physical Exam Vital signs: Vital Signs 09/11/18 20:00 09/11/18 23:46 09/12/18 03:55 Temperature 98.7 F 98.4 F 98.4 F Pulse Rate 90 80 78 Respiratory Rate 20 18 18 Blood Pressure 173/80 H 164/93 H 156/83 H Pulse Oximetry 98 95 96 09/12/18 07:00 09/12/18 11:00 09/12/18 15:00 Temperature 97.8 F 97.9 F 97.7 F Pulse Rate 81 71 68 Respiratory Rate 18 16 16 Blood Pressure 167/86 H 150/83 H 151/84 H Pulse Oximetry 97 97 97 Intake & Output 09/11/18 09/12/18 09/12/18 18:59 06:59 18:59 Intake Total 1920 / 1920 1450 / 1450 200 / 200 Balance 1920 / 1920 1450 / 1450 200 / 200 Weight 121 kg Intake: IV 1200 / 1200 1300 / 1300 200 / 200 LR 1000 mL Inj 1,000 ML @ 84 1000 / 1000 1100 / 1100 mls/hr IV.CONT .[id number] GABRIELA Rx# :[id number] Zosyn 4.5 GM Premix 4.5 gm In 200 / 200 200 / 200 200 / 200 100 ml @ 200 mls/hr IV.SIG Q6H GABRIELA Rx#:[id number] Oral 720 / 720 150 / 150 Other: # Voids 6 4 Date of Last Bowel Movement 09/10/18 09/10/18 09/11/18 Narrative: Abdomen protuberant soft and minimally tender. Almost no tenderness to palpation. Extremities not edematous. Results - Labs 09/12/18 04:58 09/12/18 04:58 Laboratory Results - last 24 hr 09/11/18 09/11/18 09/12/18 18:23 23:20 04:58 WBC 7.8 RBC 4.38 L Hgb 14.6 Hct 40.3 MCV 92.0 MCH 33.4 MCHC 36.3 H RDW 13.8 Plt Count 250 MPV 8.6 Prelim Diff (Auto) Slide review pending Neut % (Auto) 74.9 H Lymph % (Auto) 8.4 L [place] % (Auto) 10.5 H Eos % (Auto) 5.4 H Baso % (Auto) 0.8 Neut # (Auto) 5.9 Lymph # (Auto) 0.7 L [place] # (Auto) 0.8 Eos # (Auto) 0.4 Baso # (Auto) 0.1 WBC Differential . Diff Scan Auto diff confirmed Differential Comment . PT INR Sodium Potassium Chloride Carbon Dioxide Anion Gap BUN Creatinine Estimated GFR POC Glucose 131 H 89 Random Glucose Calcium Phosphorus Magnesium Total Bilirubin AST ALT Alkaline Phosphatase Total Protein Albumin Lipase 09/12/18 09/12/18 09/12/18 04:58 04:58 06:08 WBC RBC Hgb Hct MCV MCH MCHC RDW Plt Count MPV Prelim Diff (Auto) Neut % (Auto) Lymph % (Auto) [place] % (Auto) Eos % (Auto) Baso % (Auto) Neut # (Auto) Lymph # (Auto) [place] # (Auto) Eos # (Auto) Baso # (Auto) WBC Differential Diff Scan Differential Comment PT 10.4 INR 1.0 Sodium 136 Potassium 3.6 Chloride 101 Carbon Dioxide 27.3 Anion Gap 8 BUN 12 Creatinine 0.97 Estimated GFR 78 L POC Glucose 88 Random Glucose 94 Calcium 8.2 L Phosphorus 3.0 Magnesium 2.2 Total Bilirubin 1.9 H AST 68 H ALT 151 H Alkaline Phosphatase 204 H Total Protein 7.0 D Albumin 2.7 L Lipase 378 09/12/18 09/12/18 11:31 17:29 WBC RBC Hgb Hct MCV MCH MCHC RDW Plt Count MPV Prelim Diff (Auto) Neut % (Auto) Lymph % (Auto) [place] % (Auto) Eos % (Auto) Baso % (Auto) Neut # (Auto) Lymph # (Auto) [place] # (Auto) Eos # (Auto) Baso # (Auto) WBC Differential Diff Scan Differential Comment PT INR Sodium Potassium Chloride Carbon Dioxide Anion Gap BUN Creatinine Estimated GFR POC Glucose 87 202 H Random Glucose Calcium Phosphorus Magnesium Total Bilirubin AST ALT Alkaline Phosphatase Total Protein Albumin Lipase - Imaging Imaging: ITS Impressions Cholangiopancreatography MRI 09/07/18 00:00 CONCLUSION: 1. Cholelithiasis; one large and too numerous to count tiny gravel-like stones within the gallbladder as described. 2. At least 2 tiny stones are present in the distal common bile duct. No biliary distention. 3. I believe one of the tiny stones is also present in the cystic duct. 4. Gallbladder wall thickening and pericholecystic fluid. Phrygian cap versus walled off abscess/rupture adjacent to the fundus. 5. Acute pancreatitis without associated abscess. Chest X-Ray 09/07/18 16:02 CONCLUSION: No evidence of acute cardiopulmonary process. Abdomen/Pelvis CT 09/07/18 17:59 CONCLUSION: 1. Moderate severity acute pancreatitis. No parenchymal necrosis demonstrated. No perceptible stones. 2. Gallbladder wall thickening. Also pericholecystic fluid. This may be reactive but superimposed acute cholecystitis is also in the differential. Additionally, there is robust mucosal enhancement of the common bile duct and the differential would include cholangitis. 3. Mild fatty infiltrated liver. No focal lesion. 4. Diverticulosis of the sigmoid colon. No diverticulitis or other acute inflammatory changes of the gastrointestinal tract. 5. 1.9 cm left adrenal nodule. I don't have any pertinent priors. This is nonspecific but statistically most likely a benign adenoma. 6. Heterogeneous enlargement of the prostate. 7. Atherosclerotic aorta. No aneurysm. Chest CTA 09/07/18 17:59 CONCLUSION: 1. No pulmonary embolus. 2. Nonspecific 8 mm right upper lobe pulmonary nodule. Six-month follow-up noncontrast chest CT is recommended. 3. Mild dependent atelectasis of both lung bases. 4. Coronary artery calcification. 5. Small hiatal hernia. Abdomen X-Ray 09/10/18 00:00 CONCLUSION: 1. Findings consistent with mild adynamic ileus. Assessment and Plan - Assessment (1) Acute pancreatitis Code(s): K85.90 - Acute pancreatitis without necrosis or infection, unspecified Status: Acute Plan: 63 year old male gallstone pancreatitis -Patient with distal CBD stones---ERCP planned for today -NPO -IVF -Pain control -Patient can likely benefit from bowel regimen post ERCP -Will continue to follow patient --- laparoscopic cholecystectomy can be done inpatient once pancreatitis resolves vs laparoscopic cholecystectomy by a surgeon in [place] where he lives -Thank you for this consult; We will continue to follow - Plan I personally evaluated the patient in room 327 as he was awaiting ERCP. His abdomen was mildly diffusely tender. He had healed laparoscopy scars from lap appendectomy. We discussed in detail options for pursuing lap almaz during this hospitalization, vs the risks associated with delay in lap almaz with return to his home in [place]. We will follow him closely. The exam, history, and the medical decision-making described in the above note were completed with the assistance of the mid-level provider. I reviewed and agree with the findings presented. I attest that I had a [id number] encounter with the patient on the same day, and personally performed and documented my assessment and findings in the medical record. 09/12/2018 Patient has gallstone pancreatitis. This is resolving. Clinically is significantly improved. It attempted ERCP which was difficult due to edema associated with the pancreatitis. Tentative plans for attempting repeat ERCP tomorrow according to patient and chart. I again discussed with the patient the need to pursue cholecystectomy either post ERCP or after he returns to [place]. He understands risks with delay of cholecystectomy. We will follow-up after his ERCP. (1) Acute pancreatitis Qualifiers: Pancreatitis type: unspecified pancreatitis type Acute pancreatitis complication: unspecified Qualified Code(s): K85.90 - Acute pancreatitis without necrosis or infection, unspecified
[2018-09-12] MEDS: HYDROmorphone PCA Inj 6 MG/30 ML PCA.VIAL PCA PRN (22:38)
[2018-09-13] MEDS: Piperacil/Tazo 4.5 GM Premix 4.5 GM/100 ML BAG IV.SIG SCH ×4 (00:31→18:35)
[2018-09-13] MEDS: Insulin NovoLIN Regular Correctional Sugar Inj SQ SCH ×4 (00:36→18:37)
[2018-09-13 07:16] LABS: Baso # (Auto) 0.1 th/mm3 (0.0-0.2); Baso % (Auto) 0.9 % (0.0-2.0); Eos # (Auto) 0.5 th/mm3 (0.0-0.4); Eos % (Auto) 7.5 % (0.0-4.0); Hematocrit 40.7 % (39.0-51.0); Hemoglobin 13.9 gm/dL (13.0-17.0); Lymph # (Auto) 0.7 th/mm3 (1.0-4.8); Lymph % (Auto) 10.1 % (9.0-44.0); Mean Corpuscular HGB Conc 34.1 % (32.0-36.0); Mean Corpuscular Hemoglobin 32.3 pg (27.0-34.0); Mean Corpuscular Volume 94.8 fL (80.0-100.0); Mean Platelet Volume 8.7 fL (7.0-11.0); Mono # (Auto) 0.7 th/mm3 (0.0-0.9); Mono % (Auto) 10.4 % (0.0-8.0); Neut # (Auto) 4.7 th/mm3 (1.8-7.7); Neut % (Auto) 71.1 % (16.0-70.0); Platelet Count 272 th/mm3 (150-450); Red Blood Count 4.29 mil/mm3 (4.50-5.90); Red Cell Distribution Width 13.8 % (11.6-17.2); White Blood Count 6.6 th/mm3 (4.0-11.0)
[2018-09-13 07:20] LABS: Prothrombin Time 10.4 sec (9.8-11.6)
[2018-09-13 07:40] LABS: Alanine Aminotransferase 130 U/L (12-78); Albumin 2.6 g/dL (3.4-5.0); Anion Gap 8 meq/L (5-15); Aspartate Aminotransferase 63 U/L (15-37); Blood Urea Nitrogen 11 mg/dL (7-18); Calcium 8.1 mg/dL (8.5-10.1); Carbon Dioxide 25.9 meq/L (21.0-32.0); Chloride 103 meq/L (98-107); Glomerular Filtration Rate 76 mL/min (>89); Glucose,Random 94 mg/dL (74-106); Lipase 324 U/L (73-393); Magnesium 2.2 mg/dL (1.5-2.5); Phosphorus 3.2 mg/dL (2.5-4.9); Potassium 3.8 meq/L (3.5-5.1); Sodium 137 meq/L (136-145)
[2018-09-13 07:42] LABS: Alkaline Phosphatase 212 U/L (45-117); Total Protein 6.7 g/dL (6.4-8.2)
[2018-09-13] MEDS: Lisinopril 20 MG Tablet PO SCH (09:29)
[2018-09-13] MEDS: Heparin - SQ 10,000 UNITS/ML Vial SQ SCH ×2 (09:30→20:27)
[2018-09-13] MEDS: Famotidine PF Inj 20 MG/2 ML Vial IV.PUSH SCH ×2 (09:32→20:25)
--- NOTE | 2018-09-13 14:45 | P.PNGS ---
Subjective Interval history: Resting in bed Pain is better with [employer]TERN[employer] HAND pump States he is having ERCP tomorrow Physical Exam Vital signs: Vital Signs 09/12/18 15:00 09/12/18 20:00 09/13/18 00:00 Temperature 97.7 F 98.7 F 98.5 F Pulse Rate 68 77 74 Respiratory Rate 16 18 18 Blood Pressure 151/84 H 166/84 H 162/86 H Pulse Oximetry 97 96 96 09/13/18 03:00 09/13/18 04:39 09/13/18 08:00 Temperature 97.5 F L 97.3 F L Pulse Rate 77 75 Respiratory Rate 18 16 18 Blood Pressure 151/84 H 157/77 H Pulse Oximetry 95 96 09/13/18 12:00 Temperature 97.7 F Pulse Rate 78 Respiratory Rate 18 Blood Pressure 130/80 Pulse Oximetry 95 Intake & Output 09/12/18 09/13/18 09/13/18 18:59 06:59 18:59 Intake Total 2160 / 2160 300 / 300 1000 / 1000 Balance 2160 / 2160 300 / 300 1000 / 1000 Intake: IV 1200 / 1200 300 / 300 1000 / 1000 LR 1000 mL Inj 1,000 ML @ 84 1000 / 1000 1000 / 1000 mls/hr IV.CONT .[id number] [facility] Rx# :[id number] Zosyn 4.5 GM Premix 4.5 gm In 200 / 200 300 / 300 100 ml @ 200 mls/hr IV.SIG Q6H [facility] Rx#:[id number] Oral 960 / 960 Other: # Voids 6 3 Date of Last Bowel Movement 09/11/18 09/11/18 Narrative: Alert and awake Abd: mild epigastric tenderness Results - Labs 09/14/18 07:34 09/13/18 06:22 Laboratory Results - last 24 hr 09/12/18 09/13/18 09/13/18 17:29 00:34 06:16 WBC RBC Hgb Hct MCV MCH MCHC RDW Plt Count MPV Neut % (Auto) Lymph % (Auto) [place] % (Auto) Eos % (Auto) Baso % (Auto) Neut # (Auto) Lymph # (Auto) [place] # (Auto) Eos # (Auto) Baso # (Auto) WBC Differential Differential Comment PT INR Sodium Potassium Chloride Carbon Dioxide Anion Gap BUN Creatinine Estimated GFR POC Glucose 202 H 90 90 Random Glucose Calcium Phosphorus Magnesium Total Bilirubin AST ALT Alkaline Phosphatase Total Protein Albumin Lipase 09/13/18 09/13/18 09/13/18 06:22 06:22 06:22 WBC 6.6 RBC 4.29 L Hgb 13.9 Hct 40.7 MCV 94.8 MCH 32.3 MCHC 34.1 RDW 13.8 Plt Count 272 MPV 8.7 Neut % (Auto) 71.1 H Lymph % (Auto) 10.1 [place] % (Auto) 10.4 H Eos % (Auto) 7.5 H Baso % (Auto) 0.9 Neut # (Auto) 4.7 Lymph # (Auto) 0.7 L [place] # (Auto) 0.7 Eos # (Auto) 0.5 H Baso # (Auto) 0.1 WBC Differential . Differential Comment Auto diff final PT 10.4 INR 1.0 Sodium 137 Potassium 3.8 Chloride 103 Carbon Dioxide 25.9 Anion Gap 8 BUN 11 Creatinine 0.99 Estimated GFR 76 L POC Glucose Random Glucose 94 Calcium 8.1 L Phosphorus 3.2 Magnesium 2.2 Total Bilirubin 1.4 H AST 63 H ALT 130 H Alkaline Phosphatase 212 H Total Protein 6.7 Albumin 2.6 L Lipase 324 09/13/18 09/13/18 08:35 12:38 WBC RBC Hgb Hct MCV MCH MCHC RDW Plt Count MPV Neut % (Auto) Lymph % (Auto) [place] % (Auto) Eos % (Auto) Baso % (Auto) Neut # (Auto) Lymph # (Auto) [place] # (Auto) Eos # (Auto) Baso # (Auto) WBC Differential Differential Comment PT INR Sodium Potassium Chloride Carbon Dioxide Anion Gap BUN Creatinine Estimated GFR POC Glucose 79 120 H Random Glucose Calcium Phosphorus Magnesium Total Bilirubin AST ALT Alkaline Phosphatase Total Protein Albumin Lipase - Imaging Imaging: ITS Impressions Cholangiopancreatography MRI 09/07/18 00:00 CONCLUSION: 1. Cholelithiasis; one large and too numerous to count tiny gravel-like stones within the gallbladder as described. 2. At least 2 tiny stones are present in the distal common bile duct. No biliary distention. 3. I believe one of the tiny stones is also present in the cystic duct. 4. Gallbladder wall thickening and pericholecystic fluid. Phrygian cap versus walled off abscess/rupture adjacent to the fundus. 5. Acute pancreatitis without associated abscess. Chest X-Ray 09/07/18 16:02 CONCLUSION: No evidence of acute cardiopulmonary process. Abdomen/Pelvis CT 09/07/18 17:59 CONCLUSION: 1. Moderate severity acute pancreatitis. No parenchymal necrosis demonstrated. No perceptible stones. 2. Gallbladder wall thickening. Also pericholecystic fluid. This may be reactive but superimposed acute cholecystitis is also in the differential. Additionally, there is robust mucosal enhancement of the common bile duct and the differential would include cholangitis. 3. Mild fatty infiltrated liver. No focal lesion. 4. Diverticulosis of the sigmoid colon. No diverticulitis or other acute inflammatory changes of the gastrointestinal tract. 5. 1.9 cm left adrenal nodule. I don't have any pertinent priors. This is nonspecific but statistically most likely a benign adenoma. 6. Heterogeneous enlargement of the prostate. 7. Atherosclerotic aorta. No aneurysm. Chest CTA 09/07/18 17:59 CONCLUSION: 1. No pulmonary embolus. 2. Nonspecific 8 mm right upper lobe pulmonary nodule. Six-month follow-up noncontrast chest CT is recommended. 3. Mild dependent atelectasis of both lung bases. 4. Coronary artery calcification. 5. Small hiatal hernia. Abdomen X-Ray 09/10/18 00:00 CONCLUSION: 1. Findings consistent with mild adynamic ileus. Assessment and Plan - Assessment (1) Acute pancreatitis Code(s): K85.90 - Acute pancreatitis without necrosis or infection, unspecified Status: Acute Plan: 63 year old male gallstone pancreatitis -Patient with distal CBD stones---ERCP planned for tomorrow -Diet per GI -IVF -Pain control -Will continue to follow patient --- laparoscopic cholecystectomy can be done inpatient once pancreatitis resolves vs laparoscopic cholecystectomy by a surgeon [place] where [place] lives - Plan The exam, history, and the medical decision-making described in the above note were completed with the assistance of the mid-level provider. I reviewed and agree with the findings presented. I attest that I had a [id number] encounter with the patient on the same day, and personally performed and documented my assessment and findings in the medical record. (1) Acute pancreatitis Qualifiers: Pancreatitis type: unspecified pancreatitis type Acute pancreatitis complication: unspecified Qualified Code(s): K85.90 - Acute pancreatitis without necrosis or infection, unspecified
--- NOTE | 2018-09-13 16:16 | P.PNGI ---
Subjective Interval history: Patient is resting in the ban IV fluids continue at 200 cc an hour labs reviewed current hemoglobin 13.9 no obvious bleeding some generalized abdominal discomfort but much improved <Allison Hair - Last Filed: 09/13/18 16:11> Physical Exam Vital signs: Vital Signs 09/12/18 20:00 09/13/18 00:00 09/13/18 03:00 Temperature 98.7 F 98.5 F 97.5 F L Pulse Rate 77 74 77 Respiratory Rate 18 18 18 Blood Pressure 166/84 H 162/86 H 151/84 H Pulse Oximetry 96 96 95 09/13/18 04:39 09/13/18 08:00 09/13/18 12:00 Temperature 97.3 F L 97.7 F Pulse Rate 75 78 Respiratory Rate 16 18 18 Blood Pressure 157/77 H 130/80 Pulse Oximetry 96 95 Intake & Output 09/12/18 09/13/18 09/13/18 18:59 06:59 18:59 Intake Total 2160 / 2160 300 / 300 1000 / 1000 Balance 2160 / 2160 300 / 300 1000 / 1000 Intake: IV 1200 / 1200 300 / 300 1000 / 1000 LR 1000 mL Inj 1,000 ML @ 84 1000 / 1000 1000 / 1000 mls/hr IV.CONT .[id number] [facility] Rx# :[id number] Zosyn 4.5 GM Premix 4.5 gm In 200 / 200 300 / 300 100 ml @ 200 mls/hr IV.SIG Q6H [facility] Rx#:[id number] Oral 960 / 960 Other: # Voids 6 3 Date of Last Bowel Movement 09/11/18 09/11/18 - Constitutional mild distress, disheveled, cooperative - Routine HEENT Exam Head: Present: normocephalic ENT: Present: mucous membranes moist - Routine Neck Exam Present: supple - Routine Respiratory Exam Present: accessory muscle use (No obvious wheezing or rhonchi no shortness of breath at rest, lung volumes) - Routine Cardiovascular Exam Present: S1, S2 - Routine Abdominal Exam Present: distended (Mild with some mild mid and right upper quadrant discomfort , soft bowel sounds) - Routine Skin Exam Present: intact <Allison Hair - Last Filed: 09/13/18 16:11> Vital signs: Vital Signs 09/13/18 16:00 09/13/18 20:00 09/13/18 23:00 Temperature 97.8 F 97.6 F 98.4 F Pulse Rate 72 77 73 Respiratory Rate 18 18 18 Blood Pressure 140/83 168/77 H 141/78 H Pulse Oximetry 97 99 96 09/14/18 04:00 09/14/18 08:00 Temperature 97.5 F L 97.8 F Pulse Rate 69 69 Respiratory Rate 18 14 Blood Pressure 140/82 151/78 H Pulse Oximetry 98 95 Intake & Output 09/13/18 09/14/18 09/14/18 18:59 06:59 18:59 Intake Total 1100 / 1100 1200 / 1200 100 / 100 Balance 1100 / 1100 1200 / 1200 100 / 100 Weight 123 kg Intake: IV 1100 / 1100 1200 / 1200 100 / 100 LR 1000 mL Inj 1,000 ML @ 84 1000 / 1000 1000 / 1000 mls/hr IV.CONT .[id number] [facility] Rx# :[id number] Zosyn 4.5 GM Premix 4.5 gm In 100 / 100 200 / 200 100 / 100 100 ml @ 200 mls/hr IV.SIG Q6H [facility] Rx#:[id number] Other: # Voids 3 Date of Last Bowel Movement 09/11/18 <Mar Hogue A - Last Filed: 09/14/18 13:09> Results - Labs CBC & Chem 7: 09/13/18 06:22 09/13/18 06:22 Laboratory Results - last 24 hr 09/12/18 09/13/18 09/13/18 17:29 00:34 06:16 WBC RBC Hgb Hct MCV MCH MCHC RDW Plt Count MPV Neut % (Auto) Lymph % (Auto) [place] % (Auto) Eos % (Auto) Baso % (Auto) Neut # (Auto) Lymph # (Auto) [place] # (Auto) Eos # (Auto) Baso # (Auto) WBC Differential Differential Comment PT INR Sodium Potassium Chloride Carbon Dioxide Anion Gap BUN Creatinine Estimated GFR POC Glucose 202 H 90 90 Random Glucose Calcium Phosphorus Magnesium Total Bilirubin AST ALT Alkaline Phosphatase Total Protein Albumin Lipase 09/13/18 09/13/18 09/13/18 06:22 06:22 06:22 WBC 6.6 RBC 4.29 L Hgb 13.9 Hct 40.7 MCV 94.8 MCH 32.3 MCHC 34.1 RDW 13.8 Plt Count 272 MPV 8.7 Neut % (Auto) 71.1 H Lymph % (Auto) 10.1 [place] % (Auto) 10.4 H Eos % (Auto) 7.5 H Baso % (Auto) 0.9 Neut # (Auto) 4.7 Lymph # (Auto) 0.7 L [place] # (Auto) 0.7 Eos # (Auto) 0.5 H Baso # (Auto) 0.1 WBC Differential . Differential Comment Auto diff final PT 10.4 INR 1.0 Sodium 137 Potassium 3.8 Chloride 103 Carbon Dioxide 25.9 Anion Gap 8 BUN 11 Creatinine 0.99 Estimated GFR 76 L POC Glucose Random Glucose 94 Calcium 8.1 L Phosphorus 3.2 Magnesium 2.2 Total Bilirubin 1.4 H AST 63 H ALT 130 H Alkaline Phosphatase 212 H Total Protein 6.7 Albumin 2.6 L Lipase 324 09/13/18 09/13/18 08:35 12:38 WBC RBC Hgb Hct MCV MCH MCHC RDW Plt Count MPV Neut % (Auto) Lymph % (Auto) [place] % (Auto) Eos % (Auto) Baso % (Auto) Neut # (Auto) Lymph # (Auto) [place] # (Auto) Eos # (Auto) Baso # (Auto) WBC Differential Differential Comment PT INR Sodium Potassium Chloride Carbon Dioxide Anion Gap BUN Creatinine Estimated GFR POC Glucose 79 120 H Random Glucose Calcium Phosphorus Magnesium Total Bilirubin AST ALT Alkaline Phosphatase Total Protein Albumin Lipase Microbiology 09/08/18 10:50 Blood - Peripheral Aerobic Blood Culture - Final No growth in 5 days 09/08/18 10:50 Blood - Peripheral Anaerobic Blood Culture - Final No growth in 5 days 09/08/18 10:55 Blood - Peripheral Aerobic Blood Culture - Final No growth in 5 days 09/08/18 10:55 Blood - Peripheral Anaerobic Blood Culture - Final No growth in 5 days - Procedures 09/09/2018 IMPRESSIONS: The ampulla was small and difficult to locate with severe edema and inflammation from nearby pancreatitis RECOMMENDATIONS: 1. Combined procedure for any signs of cholangitis or worsening liver enzymes, otherwise repeat ERCP infew days when pancreas is less inflammed. 2. Liver enzymes daily REPEAT EXAM: Return 3 days ERCP <Allison Hair - Last Filed: 09/13/18 16:11> - Labs CBC & Chem 7: 09/14/18 07:34 09/14/18 07:34 Laboratory Results - last 24 hr 09/13/18 09/13/18 09/14/18 17:53 23:29 06:30 WBC RBC Hgb Hct MCV MCH MCHC RDW Plt Count MPV Neut % (Auto) Lymph % (Auto) [place] % (Auto) Eos % (Auto) Baso % (Auto) Neut # (Auto) Lymph # (Auto) [place] # (Auto) Eos # (Auto) Baso # (Auto) WBC Differential Differential Comment PT INR Sodium Potassium Chloride Carbon Dioxide Anion Gap BUN Creatinine Estimated GFR POC Glucose 104 99 89 Random Glucose Calcium Phosphorus Magnesium Total Bilirubin AST ALT Alkaline Phosphatase Total Protein Albumin Lipase 09/14/18 09/14/18 09/14/18 07:34 07:34 07:34 WBC 7.1 RBC 4.31 L Hgb 14.0 Hct 40.0 MCV 92.7 MCH 32.5 MCHC 35.1 RDW 13.9 Plt Count 303 MPV 8.4 Neut % (Auto) 70.6 H Lymph % (Auto) 10.4 [place] % (Auto) 10.5 H Eos % (Auto) 7.4 H Baso % (Auto) 1.1 Neut # (Auto) 5.0 Lymph # (Auto) 0.7 L [place] # (Auto) 0.7 Eos # (Auto) 0.5 H Baso # (Auto) 0.1 WBC Differential . Differential Comment Auto diff final PT 10.6 INR 1.0 Sodium 138 Potassium 4.0 Chloride 105 Carbon Dioxide 25.9 Anion Gap 7 BUN 10 Creatinine 1.10 Estimated GFR 67 L POC Glucose Random Glucose 106 Calcium 8.4 L Phosphorus 2.9 Magnesium 2.2 Total Bilirubin 1.2 H AST 58 H ALT 125 H Alkaline Phosphatase 220 H Total Protein 6.9 Albumin 2.7 L Lipase 409 H Microbiology 09/08/18 10:50 Blood - Peripheral Aerobic Blood Culture - Final No growth in 5 days 09/08/18 10:50 Blood - Peripheral Anaerobic Blood Culture - Final No growth in 5 days 09/08/18 10:55 Blood - Peripheral Aerobic Blood Culture - Final No growth in 5 days 09/08/18 10:55 Blood - Peripheral Anaerobic Blood Culture - Final No growth in 5 days <Mar Hogue A - Last Filed: 09/14/18 13:09> Assessment and Plan (1) Acute pancreatitis Status: Acute Code(s): K85.90 - Acute pancreatitis without necrosis or infection, unspecified (2) Transaminitis Status: Acute Code(s): R74.0 - Nonspecific elevation of levels of transaminase and lactic acid dehydrogenase [LDH] (3) Hyperbilirubinemia Status: Acute Code(s): E80.6 - Other disorders of bilirubin metabolism (4) Acute cholangitis Status: Acute Code(s): K83.09 - Other cholangitis - Plan This patient is a 63-year-old male with a past medical history significant for hypertension and obesity. Surgical history includes appendectomy patient presented to the emergency room at [facility] with complaint of upper mid abdominal pain for 1 week. Patient reporting epigastric pain that radiates to his back. Patient describes the pain as a sharp pain that was initially intermittent but became constant over the last 24-48 hours. Patient reports associated loss of appetite over the last week. Upon consultation, patient states abdominal pain with increasing nausea and vomiting since yesterday. Upon arrival CT abdomen and pelvis revealed acute pancreatitis. MRCP revealed 2 stones in the common bile duct. WBC within normal range.Patient denies any fever or chills. Patient denies any use of tobacco or alcohol products. Patient states he he has never had an EGD or colonoscopy in the past. Patient denies any heartburn or difficulty swallowing. States he has a normal brown soft bowel movement daily with no noted bleeding. Family history significant for both parents and siblings undergoing cholecystectomy. Patient states his father had history of gastric ulcers Acute pancreatitis Transaminitis Gallstone pancreatitis Possible cholangitis Patient endorses 1 week history of epigastric pain that radiates to back. Patient denies fever or chills. There is associated nausea and vomiting for the last 24-48 hours. -09/07/2018 CT abdomen and pelvis reveal the following--> 1. Moderate severity acute pancreatitis. No parenchymal necrosis demonstrated. No perceptible stones. 2. Gallbladder wall thickening. Also pericholecystic fluid. This may be reactive but superimposed acute cholecystitis is also in the differential. Additionally, there is robust mucosal enhancement of the common bile duct and the differential would include cholangitis. 3. Mild fatty infiltrated liver. No focal lesion. 4. Diverticulosis of the sigmoid colon. No diverticulitis or other acute inflammatory changes of the gastrointestinal tract. 5. 1.9 cm left adrenal nodule. I don't have any pertinent priors. This is nonspecific but statistically most likely a benign adenoma. 6. Heterogeneous enlargement of the prostate. 7. Atherosclerotic aorta. No aneurysm. -09/07/2018 MRCP revealed the following--> 1. Cholelithiasis; one large and too numerous to count tiny gravel-like stones within the gallbladder as described. 2. At least 2 tiny stones are present in the distal common bile duct. No biliary distention. 3. I believe one of the tiny stones is also present in the cystic duct. 4. Gallbladder wall thickening and pericholecystic fluid. Phrygian cap versus walled off abscess/rupture adjacent to the fundus. 5. Acute pancreatitis without associated abscess. -09/08/2018 WBC 7.6 hemoglobin 14.7 hematocrit 42.7 INR 1.0 d-dimer 10.11 ( chest CTA reveals no pulmonary embolus) Total bilirubin 5.5 GGT 599 AST 243 ALT 485 alk phos 199 lipase 2316 09/10/2018 Acute pancreatitis Transaminitis Gallstone pancreatitis -Patient reports mildly improved abdominal discomfort. Denies any nausea or vomiting. States tolerating clear liquids well. -09/09/2018 ERCP: The ampulla was small and difficult to locate with severe edema and inflammation from nearby pancreatitis. -09/10/2018 WBC 12.7 hemoglobin 13.6 hematocrit 39.7 platelet count 213 Total bilirubin 3.2 AST 74 ALT 220 alk phos 176 lipase 248 all trending down 09/11/2018 Patient reporting mild generalized abdominal discomfort continues. Denies any nausea or vomiting. WBC 8.9 hemoglobin 13.6 hematocrit 39.7 platelet count 229 Total bilirubin 2.3 AST 68 ALT 165 alk phos 177 all trending down, lipase 275 09/12/2018 Patient reports mild abdominal pain generalized. 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 Denies any nausea or vomiting. WBC 7.8 hemoglobin 14.6 hematocrit 40.3 total bilirubin 1.98 AST 68 ALT 151 alk phos 204 lipase 378 09/13/2018 patient is tolerating clear liquids but states the broth is too salty change diet to low-salt diet and low or no salt broth labs reviewed today current lipase level normal IV fluids continue at 200 cc an hour BM x2 normal no obvious bleeding. Patient will be n.p.o. at midnight and consents for ERCP to be redone in the a.m. discussed with patient and his . Patient denies any obvious nausea or vomiting but does have some decreased appetite. Gradual improvement over the past 48 hours Plan Low salt clear liquid diet Pain management per attending's Consent for ERCP in a.m. N.p.o. at midnight Monitor labs for any obvious bleeding Monitor for any acute changes in abdominal distention or pain Further recommendations to follow after ERCP Patient was seen per myself and Dr. Hogue, note was written on his behalf <Allison Hair - Last Filed: 09/13/18 16:11> (1) Acute pancreatitis Status: Acute Code(s): K85.90 - Acute pancreatitis without necrosis or infection, unspecified (2) Transaminitis Status: Acute Code(s): R74.0 - Nonspecific elevation of levels of transaminase and lactic acid dehydrogenase [LDH] (3) Hyperbilirubinemia Status: Acute Code(s): E80.6 - Other disorders of bilirubin metabolism (4) Acute cholangitis Status: Acute Code(s): K83.09 - Other cholangitis - Attending Attestation Seen and examined, plan as above. ERCP with stone extraction, cholecystectomy afterward. <Mar Hogue A - Last Filed: 09/14/18 13:09> <Allison Hair - Last Filed: 09/13/18 16:11> (1) Acute pancreatitis Qualifiers: Pancreatitis type: unspecified pancreatitis type Acute pancreatitis complication: unspecified Qualified Code(s): K85.90 - Acute pancreatitis without necrosis or infection, unspecified <Mar Hogue A - Last Filed: 09/14/18 13:09> (1) Acute pancreatitis Qualifiers: Pancreatitis type: unspecified pancreatitis type Acute pancreatitis complication: unspecified Qualified Code(s): K85.90 - Acute pancreatitis without necrosis or infection, unspecified
[2018-09-13] MEDS ORDERED: Chlorhexidine Gluconate 2% 1 Pack (2 Cloths) TOPICAL ONE (17:02)
[2018-09-13] MEDS ORDERED: Metoprolol Tartrate 25 MG Tablet PO SCH (17:02)
--- NOTE | 2018-09-13 17:35 | P.PN ---
Subjective Interval history: Follow-up for acute pancreatitis, possible cholecystitis as well as cholangitis. Patient is currently doing well. His epigastric pain remains the same. The pain is worse when he is trying to eat something. No fever or chills. Physical Exam Vital signs: Vital Signs 09/12/18 20:00 09/13/18 00:00 09/13/18 03:00 Temperature 98.7 F 98.5 F 97.5 F L Pulse Rate 77 74 77 Respiratory Rate 18 18 18 Blood Pressure 166/84 H 162/86 H 151/84 H Pulse Oximetry 96 96 95 09/13/18 04:39 09/13/18 08:00 09/13/18 12:00 Temperature 97.3 F L 97.7 F Pulse Rate 75 78 Respiratory Rate 18 Blood Pressure 157/77 H 130/80 Pulse Oximetry 96 95 09/13/18 16:00 Temperature 97.8 F Pulse Rate 72 Respiratory Rate 18 Blood Pressure 140/83 Pulse Oximetry 97 Intake & Output 09/12/18 09/13/18 09/13/18 18:59 06:59 18:59 Intake Total 2160 / 2160 300 / 300 1000 / 1000 Balance 2160 / 2160 300 / 300 1000 / 1000 Intake: IV 1200 / 1200 300 / 300 1000 / 1000 LR 1000 mL Inj 1,000 ML @ 84 1000 / 1000 1000 / 1000 mls/hr IV.CONT .[id number] [facility] Rx# :[id number] Zosyn 4.5 GM Premix 4.5 gm In 200 / 200 300 / 300 100 ml @ 200 mls/hr IV.SIG Q6H [facility] Rx#:[id number] Oral 960 / 960 Other: # Voids 6 3 Date of Last Bowel Movement 09/11/18 09/11/18 Narrative: GENERAL: Alert, oriented x3, NAD. SKIN: Warm and dry. HEAD: Normocephalic. EYES: No scleral icterus. No injection or drainage. NECK: Supple, trachea midline. No JVD or lymphadenopathy. CARDIOVASCULAR: Regular rate and rhythm without murmurs, gallops, or rubs. RESPIRATORY: Breath sounds equal bilaterally. No accessory muscle use. GASTROINTESTINAL: Abdomen soft, somewhat distended and there is epigastric tenderness to palpation. MUSCULOSKELETAL: No cyanosis, or edema. BACK: Nontender without obvious deformity. No CVA tenderness. Results - Labs CBC & Chem 7: 09/13/18 06:22 09/13/18 06:22 Laboratory Results - last 24 hr 09/12/18 09/13/18 09/13/18 17:29 00:34 06:16 WBC RBC Hgb Hct MCV MCH MCHC RDW Plt Count MPV Neut % (Auto) Lymph % (Auto) [place] % (Auto) Eos % (Auto) Baso % (Auto) Neut # (Auto) Lymph # (Auto) [place] # (Auto) Eos # (Auto) Baso # (Auto) WBC Differential Differential Comment PT INR Sodium Potassium Chloride Carbon Dioxide Anion Gap BUN Creatinine Estimated GFR POC Glucose 202 H 90 90 Random Glucose Calcium Phosphorus Magnesium Total Bilirubin AST ALT Alkaline Phosphatase Total Protein Albumin Lipase 09/13/18 09/13/18 09/13/18 06:22 06:22 06:22 WBC 6.6 RBC 4.29 L Hgb 13.9 Hct 40.7 MCV 94.8 MCH 32.3 MCHC 34.1 RDW 13.8 Plt Count 272 MPV 8.7 Neut % (Auto) 71.1 H Lymph % (Auto) 10.1 Ida % (Auto) 10.4 H Eos % (Auto) 7.5 H Baso % (Auto) 0.9 Neut # (Auto) 4.7 Lymph # (Auto) 0.7 L [place] # (Auto) 0.7 Eos # (Auto) 0.5 H Baso # (Auto) 0.1 WBC Differential . Differential Comment Auto diff final PT 10.4 INR 1.0 Sodium 137 Potassium 3.8 Chloride 103 Carbon Dioxide 25.9 Anion Gap 8 BUN 11 Creatinine 0.99 Estimated GFR 76 L POC Glucose Random Glucose 94 Calcium 8.1 L Phosphorus 3.2 Magnesium 2.2 Total Bilirubin 1.4 H AST 63 H ALT 130 H Alkaline Phosphatase 212 H Total Protein 6.7 Albumin 2.6 L Lipase 324 09/13/18 09/13/18 08:35 12:38 WBC RBC Hgb Hct MCV MCH MCHC RDW Plt Count MPV Neut % (Auto) Lymph % (Auto) [place] % (Auto) Eos % (Auto) Baso % (Auto) Neut # (Auto) Lymph # (Auto) [place] # (Auto) Eos # (Auto) Baso # (Auto) WBC Differential Differential Comment PT INR Sodium Potassium Chloride Carbon Dioxide Anion Gap BUN Creatinine Estimated GFR POC Glucose 79 120 H Random Glucose Calcium Phosphorus Magnesium Total Bilirubin AST ALT Alkaline Phosphatase Total Protein Albumin Lipase Microbiology 09/08/18 10:50 Blood - Peripheral Aerobic Blood Culture - Final No growth in 5 days 09/08/18 10:50 Blood - Peripheral Anaerobic Blood Culture - Final No growth in 5 days 09/08/18 10:55 Blood - Peripheral Aerobic Blood Culture - Final No growth in 5 days 09/08/18 10:55 Blood - Peripheral Anaerobic Blood Culture - Final No growth in 5 days - Procedures 09/09/2018 IMPRESSIONS: The ampulla was small and difficult to locate with severe edema and inflammation from nearby pancreatitis RECOMMENDATIONS: 1. Combined procedure for any signs of cholangitis or worsening liver enzymes, otherwise repeat ERCP infew days when pancreas is less inflammed. 2. Liver enzymes daily REPEAT EXAM: Return 3 days ERCP Assessment and Plan - Plan Mr. Acosta is a pleasant 63-year-old with a history of hypertension, obesity who was admitted to the hospital on 09/07/2018 due to 5-day duration of worsening epigastric pain radiating to the back. His pain was not associated food although he reports progressively worsening anorexia. Upon admission, his lipase level was greater than 30,000, LFTs were elevated as well as bilirubin. CT abdomen pelvis confirmed acute pancreatitis. Patient subsequently underwent MRCP study which shows 2 stones in the common bile duct. Gastroenterology was consulted. Patient was initially managed in the ICU and subsequently care was transferred to the hospitalist service. Acute pancreatitis Acute cholangitis Probable acute cholecystitis Continue hydromorphone for pain control. Continue Zosyn 4.5 g every 6 hours. GI and general surgery are following. ERCP on 09/09/2018 was suboptimal. A repeat ERCP is planned probably on 09/14/2018. Adynamic Ileus We will continue bowel regimen. KUB shows ileus. Patient has had bowel movements. Bowel sounds positive on physical exam. Full code. Heparin for DVT prophylaxis.
[2018-09-13] MEDS ORDERED: Sodium Chlor 0.9% Inj 500 ML IV.SIG SCH (18:00)
[2018-09-14] MEDS: Piperacil/Tazo 4.5 GM Premix 4.5 GM/100 ML BAG IV.SIG SCH ×4 (01:02→18:13)
[2018-09-14] MEDS: Insulin NovoLIN Regular Correctional Sugar Inj SQ SCH ×4 (03:34→18:01)
[2018-09-14 07:57] LABS: Baso # (Auto) 0.1 th/mm3 (0.0-0.2); Baso % (Auto) 1.1 % (0.0-2.0); Eos # (Auto) 0.5 th/mm3 (0.0-0.4); Eos % (Auto) 7.4 % (0.0-4.0); Lymph # (Auto) 0.7 th/mm3 (1.0-4.8); Lymph % (Auto) 10.4 % (9.0-44.0); Mean Corpuscular HGB Conc 35.1 % (32.0-36.0); Mean Corpuscular Hemoglobin 32.5 pg (27.0-34.0); Mean Corpuscular Volume 92.7 fL (80.0-100.0); Mean Platelet Volume 8.4 fL (7.0-11.0); Mono # (Auto) 0.7 th/mm3 (0.0-0.9); Mono % (Auto) 10.5 % (0.0-8.0); Neut % (Auto) 70.6 % (16.0-70.0); Platelet Count 303 th/mm3 (150-450); Red Blood Count 4.31 mil/mm3 (4.50-5.90); Red Cell Distribution Width 13.9 % (11.6-17.2); White Blood Count 7.1 th/mm3 (4.0-11.0)
[2018-09-14 08:02] LABS: Prothrombin Time 10.6 sec (9.8-11.6)
[2018-09-14 08:29] LABS: Alanine Aminotransferase 125 U/L (12-78); Albumin 2.7 g/dL (3.4-5.0); Anion Gap 7 meq/L (5-15); Aspartate Aminotransferase 58 U/L (15-37); Blood Urea Nitrogen 10 mg/dL (7-18); Calcium 8.4 mg/dL (8.5-10.1); Carbon Dioxide 25.9 meq/L (21.0-32.0); Chloride 105 meq/L (98-107); Glomerular Filtration Rate 67 mL/min (>89); Glucose,Random 106 mg/dL (74-106); Lipase 409 U/L (73-393); Magnesium 2.2 mg/dL (1.5-2.5); Phosphorus 2.9 mg/dL (2.5-4.9); Sodium 138 meq/L (136-145)
[2018-09-14 08:31] LABS: Alkaline Phosphatase 220 U/L (45-117); Total Protein 6.9 g/dL (6.4-8.2)
--- NOTE | 2018-09-14 09:39 | P.PNIM ---
Subjective Interval history: Patient says he is feeling right. Denies any chest pain or shortness of breath. Denies nausea or vomiting. Says his abdominal discomfort is improving. Physical Exam Vital signs: Vital Signs 09/13/18 12:00 09/13/18 16:00 09/13/18 20:00 Temperature 97.7 F 97.8 F 97.6 F Pulse Rate 78 72 77 Respiratory Rate 18 18 18 Blood Pressure 130/80 140/83 168/77 H Pulse Oximetry 95 97 99 09/13/18 23:00 09/14/18 04:00 09/14/18 08:00 Temperature 98.4 F 97.5 F L 97.8 F Pulse Rate 73 69 69 Respiratory Rate 18 18 14 Blood Pressure 141/78 H 140/82 151/78 H Pulse Oximetry 96 98 95 Intake & Output 09/13/18 09/14/18 09/14/18 18:59 06:59 18:59 Intake Total 1100 / 1100 1200 / 1200 100 / 100 Balance 1100 / 1100 1200 / 1200 100 / 100 Weight 123 kg Intake: IV 1100 / 1100 1200 / 1200 100 / 100 LR 1000 mL Inj 1,000 ML @ 84 1000 / 1000 1000 / 1000 mls/hr IV.CONT .[id number] [facility] Rx# :[id number] Zosyn 4.5 GM Premix 4.5 gm In 100 / 100 200 / 200 100 / 100 100 ml @ 200 mls/hr IV.SIG Q6H [facility] Rx#:[id number] Other: # Voids 3 Date of Last Bowel Movement 09/11/18 Narrative: GENERAL: Patient walking in room. Appears comfortable. SKIN: Warm and dry. HEAD: Normocephalic. EYES: No scleral icterus. No injection or drainage. NECK: Supple, trachea midline. No JVD CARDIOVASCULAR: Regular rate and rhythm without murmurs, gallops, or rubs. RESPIRATORY: Breath sounds equal bilaterally. No accessory muscle use. GASTROINTESTINAL: Abdomen soft, non-tender, nondistended. No rebound or guarding. Positive bowel sounds. MUSCULOSKELETAL: No cyanosis, or edema. Left lower extremity distended veins which patient reports is chronic. BACK: Nontender without obvious deformity. No CVA tenderness. Results - Labs CBC & Chem 7: 09/14/18 07:34 09/14/18 07:34 Laboratory Results - last 24 hr 09/13/18 09/13/18 09/13/18 12:38 17:53 23:29 WBC RBC Hgb Hct MCV MCH MCHC RDW Plt Count MPV Neut % (Auto) Lymph % (Auto) [place] % (Auto) Eos % (Auto) Baso % (Auto) Neut # (Auto) Lymph # (Auto) [place] # (Auto) Eos # (Auto) Baso # (Auto) WBC Differential Differential Comment PT INR Sodium Potassium Chloride Carbon Dioxide Anion Gap BUN Creatinine Estimated GFR POC Glucose 120 H 104 99 Random Glucose Calcium Phosphorus Magnesium Total Bilirubin AST ALT Alkaline Phosphatase Total Protein Albumin Lipase 09/14/18 09/14/18 09/14/18 06:30 07:34 07:34 WBC 7.1 RBC 4.31 L Hgb 14.0 Hct 40.0 MCV 92.7 MCH 32.5 MCHC 35.1 RDW 13.9 Plt Count 303 MPV 8.4 Neut % (Auto) 70.6 H Lymph % (Auto) 10.4 [place] % (Auto) 10.5 H Eos % (Auto) 7.4 H Baso % (Auto) 1.1 Neut # (Auto) 5.0 Lymph # (Auto) 0.7 L [place] # (Auto) 0.7 Eos # (Auto) 0.5 H Baso # (Auto) 0.1 WBC Differential . Differential Comment Auto diff final PT 10.6 INR 1.0 Sodium Potassium Chloride Carbon Dioxide Anion Gap BUN Creatinine Estimated GFR POC Glucose 89 Random Glucose Calcium Phosphorus Magnesium Total Bilirubin AST ALT Alkaline Phosphatase Total Protein Albumin Lipase 09/14/18 07:34 WBC RBC Hgb Hct MCV MCH MCHC RDW Plt Count MPV Neut % (Auto) Lymph % (Auto) [place] % (Auto) Eos % (Auto) Baso % (Auto) Neut # (Auto) Lymph # (Auto) [place] # (Auto) Eos # (Auto) Baso # (Auto) WBC Differential Differential Comment PT INR Sodium 138 Potassium 4.0 Chloride 105 Carbon Dioxide 25.9 Anion Gap 7 BUN 10 Creatinine 1.10 Estimated GFR 67 L POC Glucose Random Glucose 106 Calcium 8.4 L Phosphorus 2.9 Magnesium 2.2 Total Bilirubin 1.2 H AST 58 H ALT 125 H Alkaline Phosphatase 220 H Total Protein 6.9 Albumin 2.7 L Lipase 409 H Microbiology 09/08/18 10:50 Blood - Peripheral Aerobic Blood Culture - Final No growth in 5 days 09/08/18 10:50 Blood - Peripheral Anaerobic Blood Culture - Final No growth in 5 days 09/08/18 10:55 Blood - Peripheral Aerobic Blood Culture - Final No growth in 5 days 09/08/18 10:55 Blood - Peripheral Anaerobic Blood Culture - Final No growth in 5 days - Procedures 09/09/2018 IMPRESSIONS: The ampulla was small and difficult to locate with severe edema and inflammation from nearby pancreatitis RECOMMENDATIONS: 1. Combined procedure for any signs of cholangitis or worsening liver enzymes, otherwise repeat ERCP infew days when pancreas is less inflammed. 2. Liver enzymes daily REPEAT EXAM: Return 3 days ERCP Assessment and Plan - Plan Mr. Acosta is a pleasant 63-year-old with a history of hypertension, obesity who was admitted to the hospital on 09/07/2018 due to 5-day duration of worsening epigastric pain radiating to the back. His pain was not associated food although he reports progressively worsening anorexia. Upon admission, his lipase level was greater than 30,000, LFTs were elevated as well as bilirubin. CT abdomen pelvis confirmed acute pancreatitis. Patient subsequently underwent MRCP study which shows 2 stones in the common bile duct. Gastroenterology was consulted. Patient was initially managed in the ICU and subsequently care was transferred to the hospitalist service. //Acute pancreatitis //Acute cholangitis //Probable acute cholecystitis Continue hydromorphone for pain control. Continue Zosyn 4.5 g every 6 hours. GI and general surgery are following. ERCP on 09/09/2018 was suboptimal. A repeat ERCP is planned probably on 09/14/2018. = 09/14. Bilirubin 1.2. Improving. Plan for ERCP as per GI. Appreciate assistance. //Adynamic Ileus We will continue bowel regimen. KUB shows ileus. Patient has had bowel movements. Bowel sounds positive on physical exam. = 09/14. GI following. Continue bowel regimen. Full code. Heparin for DVT prophylaxis. Discussed Condition With: Patient, nurse.
[2018-09-14] MEDS: Lisinopril 20 MG Tablet PO SCH (09:53)
[2018-09-14] MEDS: Heparin - SQ 10,000 UNITS/ML Vial SQ SCH ×2 (09:54→21:50)
[2018-09-14] MEDS: Famotidine PF Inj 20 MG/2 ML Vial IV.PUSH SCH ×2 (10:07→21:52)
[2018-09-14] MEDS ORDERED: *Ondansetron Inj 4 MG/2 ML Vial PERIprocedural Use ONLY ONE (13:40)
--- NOTE | 2018-09-14 13:45 | FL ---
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 CLINICAL DATA: This is the patient's initial encounter. Patient reports that signs and symptoms have been present for 4 - 6 days and indicates a pain score of Nonresponsive. MEDICAL/SURGICAL HISTORY: Non-responsive. Non-responsive. COMPARISON: C, MRCP W/O CONTRAST, 09/07/2018.. . FINDINGS: An ERCP was performed by the ordering physician. A total of 3 fluoroscopic images were presented. The se show a scope with contrast opacifying a nondilated intrahepatic and extra hepatic biliary tree. Cy stic duct is patent. Limited opacification of the inferior margin of the common bile duct as well as the gallbladder lumen. No discrete filling defects observed. CONCLUSION: Unremarkable ERCP Electronically signed by: Rio Sutherland MD 09/14/2018 1:44 PM EST
--- NOTE | 2018-09-14 15:31 | P.PNGS ---
Subjective Patient reports: pain is less (post ERCP, thinks all went well. Two large stones passed on own, other gravel/sludge removed today.) Physical Exam Vital signs: Vital Signs 09/13/18 16:00 09/13/18 20:00 09/13/18 23:00 Temperature 97.8 F 97.6 F 98.4 F Pulse Rate 72 77 73 Respiratory Rate 18 18 18 Blood Pressure 140/83 168/77 H 141/78 H Pulse Oximetry 97 99 96 09/14/18 04:00 09/14/18 08:00 09/14/18 13:12 Temperature 97.5 F L 97.8 F 97.8 F Pulse Rate 69 69 78 Respiratory Rate 18 14 14 Blood Pressure 140/82 151/78 H 138/69 Pulse Oximetry 98 95 93 L 09/14/18 13:30 09/14/18 13:45 Temperature 97.8 F Pulse Rate 73 75 Respiratory Rate 16 17 Blood Pressure 142/79 H 144/84 H Pulse Oximetry 93 L 94 L Intake & Output 09/13/18 09/14/18 09/14/18 18:59 06:59 18:59 Intake Total 1100 / 1100 1200 / 1200 100 / 100 Balance 1100 / 1100 1200 / 1200 100 / 100 Weight 123 kg Intake: IV 1100 / 1100 1200 / 1200 100 / 100 LR 1000 mL Inj 1,000 ML @ 84 1000 / 1000 1000 / 1000 mls/hr IV.CONT .[id number] [facility] Rx# :[id number] Zosyn 4.5 GM Premix 4.5 gm In 100 / 100 200 / 200 100 / 100 100 ml @ 200 mls/hr IV.SIG Q6H [facility] Rx#:[id number] Other: # Voids 3 Date of Last Bowel Movement 09/11/18 09/12/18 Narrative: abdomen mildly distended and soft. Results - Labs 09/14/18 07:34 09/14/18 07:34 Laboratory Results - last 24 hr 09/13/18 09/13/18 09/14/18 17:53 23:29 06:30 WBC RBC Hgb Hct MCV MCH MCHC RDW Plt Count MPV Neut % (Auto) Lymph % (Auto) [place] % (Auto) Eos % (Auto) Baso % (Auto) Neut # (Auto) Lymph # (Auto) [place] # (Auto) Eos # (Auto) Baso # (Auto) WBC Differential Differential Comment PT INR Sodium Potassium Chloride Carbon Dioxide Anion Gap BUN Creatinine Estimated GFR POC Glucose 104 99 89 Random Glucose Calcium Phosphorus Magnesium Total Bilirubin AST ALT Alkaline Phosphatase Total Protein Albumin Lipase 09/14/18 09/14/18 09/14/18 07:34 07:34 07:34 WBC 7.1 RBC 4.31 L Hgb 14.0 Hct 40.0 MCV 92.7 MCH 32.5 MCHC 35.1 RDW 13.9 Plt Count 303 MPV 8.4 Neut % (Auto) 70.6 H Lymph % (Auto) 10.4 [place] % (Auto) 10.5 H Eos % (Auto) 7.4 H Baso % (Auto) 1.1 Neut # (Auto) 5.0 Lymph # (Auto) 0.7 L [place] # (Auto) 0.7 Eos # (Auto) 0.5 H Baso # (Auto) 0.1 WBC Differential . Differential Comment Auto diff final PT 10.6 INR 1.0 Sodium 138 Potassium 4.0 Chloride 105 Carbon Dioxide 25.9 Anion Gap 7 BUN 10 Creatinine 1.10 Estimated GFR 67 L POC Glucose Random Glucose 106 Calcium 8.4 L Phosphorus 2.9 Magnesium 2.2 Total Bilirubin 1.2 H AST 58 H ALT 125 H Alkaline Phosphatase 220 H Total Protein 6.9 Albumin 2.7 L Lipase 409 H 09/14/18 14:03 WBC RBC Hgb Hct MCV MCH MCHC RDW Plt Count MPV Neut % (Auto) Lymph % (Auto) [place] % (Auto) Eos % (Auto) Baso % (Auto) Neut # (Auto) Lymph # (Auto) [place] # (Auto) Eos # (Auto) Baso # (Auto) WBC Differential Differential Comment PT INR Sodium Potassium Chloride Carbon Dioxide Anion Gap BUN Creatinine Estimated GFR POC Glucose 92 Random Glucose Calcium Phosphorus Magnesium Total Bilirubin AST ALT Alkaline Phosphatase Total Protein Albumin Lipase - Imaging Imaging: ITS Impressions Cholangiopancreatography MRI 09/07/18 00:00 CONCLUSION: 1. Cholelithiasis; one large and too numerous to count tiny gravel-like stones within the gallbladder as described. 2. At least 2 tiny stones are present in the distal common bile duct. No biliary distention. 3. I believe one of the tiny stones is also present in the cystic duct. 4. Gallbladder wall thickening and pericholecystic fluid. Phrygian cap versus walled off abscess/rupture adjacent to the fundus. 5. Acute pancreatitis without associated abscess. Chest X-Ray 09/07/18 16:02 CONCLUSION: No evidence of acute cardiopulmonary process. Abdomen/Pelvis CT 09/07/18 17:59 CONCLUSION: 1. Moderate severity acute pancreatitis. No parenchymal necrosis demonstrated. No perceptible stones. 2. Gallbladder wall thickening. Also pericholecystic fluid. This may be reactive but superimposed acute cholecystitis is also in the differential. Additionally, there is robust mucosal enhancement of the common bile duct and the differential would include cholangitis. 3. Mild fatty infiltrated liver. No focal lesion. 4. Diverticulosis of the sigmoid colon. No diverticulitis or other acute inflammatory changes of the gastrointestinal tract. 5. 1.9 cm left adrenal nodule. I don't have any pertinent priors. This is nonspecific but statistically most likely a benign adenoma. 6. Heterogeneous enlargement of the prostate. 7. Atherosclerotic aorta. No aneurysm. Chest CTA 09/07/18 17:59 CONCLUSION: 1. No pulmonary embolus. 2. Nonspecific 8 mm right upper lobe pulmonary nodule. Six-month follow-up noncontrast chest CT is recommended. 3. Mild dependent atelectasis of both lung bases. 4. Coronary artery calcification. 5. Small hiatal hernia. Abdomen X-Ray 09/10/18 00:00 CONCLUSION: 1. Findings consistent with mild adynamic ileus. GI Procedure 09/14/18 00:00 CONCLUSION: Unremarkable ERCP Assessment and Plan - Assessment (1) Acute pancreatitis Code(s): K85.90 - Acute pancreatitis without necrosis or infection, unspecified Status: Acute Plan: 63 year old male gallstone pancreatitis -Patient with distal CBD stones---ERCP planned for tomorrow -Diet per GI -IVF -Pain control -Will continue to follow patient --- laparoscopic cholecystectomy can be done inpatient once pancreatitis resolves vs laparoscopic cholecystectomy by a surgeon in [place] where he lives - Plan The exam, history, and the medical decision-making described in the above note were completed with the assistance of the mid-level provider. I reviewed and agree with the findings presented. I attest that I had a [id number] encounter with the patient on the same day, and personally performed and documented my assessment and findings in the medical record. 09/14/18 Post ERCP, clearing of CBD, following gallstone pancreatitis. Needs lap almaz. This afternoon, the patient indicates he would prefer to go back to [place] for surgery where he lives if he feels good enough over the next day or two. We will be available should he change his mind and decide to stay here for lap almaz. Risk of recurrent CBD stones and cholecystitis discussed. (1) Acute pancreatitis Qualifiers: Pancreatitis type: unspecified pancreatitis type Acute pancreatitis complication: unspecified Qualified Code(s): K85.90 - Acute pancreatitis without necrosis or infection, unspecified
--- NOTE | 2018-09-14 15:36 | GIPROC ---
[facility] [address] [facility]. [facility], [address] ERCP PROCEDURE REPORT EXAM DATE: 09/14/2018 PATIENT NAME: Tin Acosta MR #: [id number] BIRTHDATE: 1955 ATTENDING: Mar Hogue MD ORDER #: [id number] PCU RN: Maryam Villasenor and Dhara Bush STATUS: inpatient INDICATIONS: The patient is a 63 yr old male here for an ERCP due to suspected or rule out bile duct stones PROCEDURE PERFORMED: ERCP with sphincterotomy/papillotomy MEDICATIONS: Per Anesthesia and None. CONSENT: The patient understands the risks and benefits of the procedure and understands that these risks include, but are not limited to: sedation, allergic reaction, infection, perforation and/or bleeding. Alternative means of evaluation and treatment include, among others: physical exam, x-rays, and/or surgical intervention. The patient elects to proceed with this endoscopic procedure. medical equipment was checked for proper function. Hand hygiene and appropriate measures for infection prevention was taken. After the risks, benefits and alternatives of the procedure were thoroughly explained, Informed was verified, confirmed and timeout was successfully executed by the treatment team. With the patient in left semi-prone position, medications were administered intravenously.The Pentax [id number] was passed from the mouth into the esophagus and further advanced from the esophagus into the stomach. From stomach scope was directed to the second portion of the duodenum. Major papilla was aligned with the duodenoscope. The scope position was confirmed fluoroscopically. Rest of the findings/therapeutics are given below. The scope was then completely withdrawn from the patient and the procedure completed. The pulse, BP, and O2 saturation were monitored and documented by the physician and the nursing staff throughout the entire procedure. The patient was cared for as planned according to standard protocol. The patient was then discharged to recovery in stable condition and with appropriate post procedure care. The ampulla was located the second portion of the duodenum. The ampulla appeared normal. There was a dilation of the CBD. With guidewire in the bile duct, a biliary sphincterotomy was performed using the sphincterotome. Using a stone extraction balloon the bile duct was swept twice. Multiple stone fragments were removed from the bile duct successfully. ADVERSE EVENT: There were no complications. IMPRESSIONS: Normal appearing ampulla CBD minimally dilated Sphincterotomy done Ductal sweep showed debris and fragmented small stone. RECOMMENDATIONS: Cholecystectomy REPEAT EXAM: NONE Mar Hogue MD eSigned: Mar Hogue MD 09/14/2018 3:36 PM cc:
[2018-09-14 20:07] VITALS: RESP 18
[2018-09-15] MEDS: Piperacil/Tazo 4.5 GM Premix 4.5 GM/100 ML BAG IV.SIG SCH ×2 (00:43→06:48)
[2018-09-15] MEDS: Insulin NovoLIN Regular Correctional Sugar Inj SQ SCH (00:46)
[2018-09-15 05:27] VITALS: O2SAT 95
[2018-09-15 07:03] LABS: Baso # (Auto) 0.1 th/mm3 (0.0-0.2); Baso % (Auto) 1.1 % (0.0-2.0); Eos # (Auto) 0.5 th/mm3 (0.0-0.4); Eos % (Auto) 6.6 % (0.0-4.0); Hematocrit 40.1 % (39.0-51.0); Lymph # (Auto) 0.8 th/mm3 (1.0-4.8); Mean Corpuscular HGB Conc 34.9 % (32.0-36.0); Mean Corpuscular Hemoglobin 32.8 pg (27.0-34.0); Mean Platelet Volume 8.5 fL (7.0-11.0); Mono # (Auto) 0.8 th/mm3 (0.0-0.9); Mono % (Auto) 11.1 % (0.0-8.0); Neut # (Auto) 5.1 th/mm3 (1.8-7.7); Neut % (Auto) 70.2 % (16.0-70.0); Platelet Count 305 th/mm3 (150-450); Red Blood Count 4.27 mil/mm3 (4.50-5.90); Red Cell Distribution Width 14.1 % (11.6-17.2); White Blood Count 7.2 th/mm3 (4.0-11.0)
[2018-09-15 07:23] LABS: Albumin 2.5 g/dL (3.4-5.0); Calcium 8.2 mg/dL (8.5-10.1); Carbon Dioxide 24.2 meq/L (21.0-32.0); Magnesium 2.4 mg/dL (1.5-2.5); Phosphorus 2.8 mg/dL (2.5-4.9)
[2018-09-15 07:25] LABS: Total Protein 6.7 g/dL (6.4-8.2)
[2018-09-15 08:29] VITALS: BP 157/82; PULSE 73; TEMP 98.6
--- NOTE | 2018-09-15 09:02 | P.PNIM ---
Subjective Interval history: Patient says he is feeling well. Tolerated dinner as well as breakfast. Denies any chest pain or shortness of breath. Abdominal pain. Physical Exam Vital signs: Vital Signs 09/14/18 13:12 09/14/18 13:30 09/14/18 13:45 Temperature 97.8 F 97.8 F Pulse Rate 78 73 75 Respiratory Rate 14 16 17 Blood Pressure 138/69 142/79 H 144/84 H Pulse Oximetry 93 L 93 L 94 L 09/14/18 16:00 09/14/18 20:00 09/15/18 00:00 Temperature 97.7 F 97.6 F 97.7 F Pulse Rate 72 80 67 Respiratory Rate 16 18 18 Blood Pressure 149/77 H 152/74 H 142/79 H Pulse Oximetry 96 98 97 09/15/18 03:00 09/15/18 08:00 Temperature 97.9 F 98.6 F Pulse Rate 72 73 Respiratory Rate 18 18 Blood Pressure 138/77 157/82 H Pulse Oximetry 95 95 Intake & Output 09/14/18 09/15/18 09/15/18 18:59 06:59 18:59 Intake Total 2300 / 2300 1100 / 1100 Balance 2300 / 2300 1100 / 1100 Weight 97.9 kg Intake: IV 800 / 800 1100 / 1100 LR 1000 mL Inj 1,000 ML @ 84 500 / 500 1000 / 1000 mls/hr IV.CONT .[id number] [facility] Rx# :[id number] Zosyn 4.5 GM Premix 4.5 gm In 300 / 300 100 / 100 100 ml @ 200 mls/hr IV.SIG Q6H [facility] Rx#:[id number] Oral 1000 / 1000 Anesthesia Amount 500 / 500 Other: # Voids 4 Date of Last Bowel Movement 09/12/18 09/12/18 # Bowel Movements 1 Narrative: abdomen mildly distended and soft. Results - Labs CBC & Chem 7: 09/15/18 06:37 09/15/18 06:37 Laboratory Results - last 24 hr 09/14/18 09/14/18 09/15/18 14:03 17:41 00:42 WBC RBC Hgb Hct MCV MCH MCHC RDW Plt Count MPV Neut % (Auto) Lymph % (Auto) [place] % (Auto) Eos % (Auto) Baso % (Auto) Neut # (Auto) Lymph # (Auto) [place] # (Auto) Eos # (Auto) Baso # (Auto) WBC Differential Differential Comment Sodium Potassium Chloride Carbon Dioxide Anion Gap BUN Creatinine Estimated GFR POC Glucose 92 85 105 Random Glucose Calcium Phosphorus Magnesium Total Bilirubin Direct Bilirubin Indirect Bilirubin AST ALT Alkaline Phosphatase Total Protein Albumin 09/15/18 09/15/18 09/15/18 06:37 06:37 06:49 WBC 7.2 RBC 4.27 L Hgb 14.0 Hct 40.1 MCV 94.0 MCH 32.8 MCHC 34.9 RDW 14.1 Plt Count 305 MPV 8.5 Neut % (Auto) 70.2 H Lymph % (Auto) 11.0 [place] % (Auto) 11.1 H Eos % (Auto) 6.6 H Baso % (Auto) 1.1 Neut # (Auto) 5.1 Lymph # (Auto) 0.8 L [place] # (Auto) 0.8 Eos # (Auto) 0.5 H Baso # (Auto) 0.1 WBC Differential . Differential Comment Auto diff final Sodium 137 Potassium 4.0 Chloride 105 Carbon Dioxide 24.2 Anion Gap 8 BUN 11 Creatinine 1.02 Estimated GFR 73 L POC Glucose 94 Random Glucose 102 Calcium 8.2 L Phosphorus 2.8 Magnesium 2.4 Total Bilirubin 1.1 H Direct Bilirubin 0.8 H Indirect Bilirubin 0.3 AST 70 H ALT 128 H Alkaline Phosphatase 335 H Total Protein 6.7 Albumin 2.5 L - Imaging Impressions GI Procedure 09/14/18 00:00 CONCLUSION: Unremarkable ERCP - Procedures 09/09/2018 IMPRESSIONS: The ampulla was small and difficult to locate with severe edema and inflammation from nearby pancreatitis RECOMMENDATIONS: 1. Combined procedure for any signs of cholangitis or worsening liver enzymes, otherwise repeat ERCP infew days when pancreas is less inflammed. 2. Liver enzymes daily REPEAT EXAM: Return 3 days ERCP Assessment and Plan - Plan Mr. Acosta is a pleasant 63-year-old with a history of hypertension, obesity who was admitted to the hospital on 09/07/2018 due to 5-day duration of worsening epigastric pain radiating to the back. His pain was not associated food although he reports progressively worsening anorexia. Upon admission, his lipase level was greater than 30,000, LFTs were elevated as well as bilirubin. CT abdomen pelvis confirmed acute pancreatitis. Patient subsequently underwent MRCP study which shows 2 stones in the common bile duct. Gastroenterology was consulted. Patient was initially managed in the ICU and subsequently care was transferred to the hospitalist service. //Acute pancreatitis //Acute cholangitis //Probable acute cholecystitis Continue hydromorphone for pain control. Continue Zosyn 4.5 g every 6 hours. GI and general surgery are following. ERCP on 09/09/2018 was suboptimal. A repeat ERCP is planned probably on 09/14/2018. = 09/14. Bilirubin 1.2. Improving. Plan for ERCP as per GI. Appreciate assistance. = 09/15. LFTs still elevated, likely secondary to ERCP. Expect to improve. Patient tolerated dinner and breakfast. Awaiting GI clearance. Patient is to follow-up with general surgery, gastroenterology as outpatient. //Adynamic Ileus We will continue bowel regimen. KUB shows ileus. Patient has had bowel movements. Bowel sounds positive on physical exam. = 09/14. GI following. Continue bowel regimen. = Appears resolved. Full code. Heparin for DVT prophylaxis. Discussed Condition With: Patient, nurse Discharge Planning: Charge home to follow-up with general surgery and gastroenterology as outpatient.
--- NOTE | 2018-09-15 09:10 | P.DS ---
Date of admission: 09/07/18 19:19 Primary care physician: No Primary Care Physician Brief History from admission: 63yM with history of hypertension and obesity who presents with 5 days of worsening epigastric pain radiating to the back, not associated with food, though he has had a progressive loss of appetite over the last 5 days. Abdominal pain continued to get worse and is severe today. Patient is very clearly jaundiced, but the family notes that they have not noticed this. In the emergency department, laboratory evidence significant for elevated LFTs, elevated T bili to 5, elevated lipase to greater than 30,000. CT abdomen pelvis confirms acute pancreatitis. MRCP confirms 2 stones in the common bile duct. Normal white count and afebrile on room air. Patient denies chest pain, shortness of breath, heat or cold intolerance, nausea, vomiting, diarrhea, constipation. Remainder the review of systems is negative. Patient does have a strong family history of 3 or 4 relatives with gallbladder disease/gallstones. DS: Summary Hospital Course: Mr. Acosta is a pleasant 63-year-old with a history of hypertension, obesity who was admitted to the hospital on 09/07/2018 due to 5-day duration of worsening epigastric pain radiating to the back. His pain was not associated food although he reports progressively worsening anorexia. Upon admission, his lipase level was greater than 30,000, LFTs were elevated as well as bilirubin. CT abdomen pelvis confirmed acute pancreatitis. Patient subsequently underwent MRCP study which shows 2 stones in the common bile duct. Gastroenterology was consulted. Patient was initially managed in the ICU and subsequently care was transferred to the hospitalist service. //Acute pancreatitis //Acute cholangitis //Probable acute cholecystitis Continue hydromorphone for pain control. Continue Zosyn 4.5 g every 6 hours. GI and general surgery are following. ERCP on 09/09/2018 was suboptimal. A repeat ERCP is planned probably on 09/14/2018. = 09/14. Bilirubin 1.2. Improving. Plan for ERCP as per GI. Appreciate assistance. = 09/15. LFTs still elevated, likely secondary to ERCP. Expect to improve. Patient tolerated dinner and breakfast. Awaiting GI clearance. Patient is to follow-up with general surgery, gastroenterology as outpatient. //Adynamic Ileus We will continue bowel regimen. KUB shows ileus. Patient has had bowel movements. Bowel sounds positive on physical exam. = 09/14. GI following. Continue bowel regimen. = Appears resolved. Full code. Heparin for DVT prophylaxis. Discussed Condition With: Patient, nurse Discharge Planning: Charge home to follow-up with general surgery and gastroenterology as outpatient. - Time Spent with Patient Total time spent providing and/or coordinating discharge services: Greater than 30 minutes Exam Vital signs: Vital Signs 09/14/18 13:12 09/14/18 13:30 09/14/18 13:45 Temperature 97.8 F 97.8 F Pulse Rate 78 73 75 Respiratory Rate 14 16 17 Blood Pressure 138/69 142/79 H 144/84 H Pulse Oximetry 93 L 93 L 94 L 09/14/18 16:00 09/14/18 20:00 09/15/18 00:00 Temperature 97.7 F 97.6 F 97.7 F Pulse Rate 72 80 67 Respiratory Rate 16 18 18 Blood Pressure 149/77 H 152/74 H 142/79 H Pulse Oximetry 96 98 97 09/15/18 03:00 09/15/18 08:00 Temperature 97.9 F 98.6 F Pulse Rate 72 73 Respiratory Rate 18 18 Blood Pressure 138/77 157/82 H Pulse Oximetry 95 95 Intake & Output 09/14/18 09/15/18 09/15/18 18:59 06:59 18:59 Intake Total 2300 / 2300 1100 / 1100 Balance 2300 / 2300 1100 / 1100 Weight 97.9 kg Intake: IV 800 / 800 1100 / 1100 LR 1000 mL Inj 1,000 ML @ 84 500 / 500 1000 / 1000 mls/hr IV.CONT .[id number] [facility] Rx# :[id number] Zosyn 4.5 GM Premix 4.5 gm In 300 / 300 100 / 100 100 ml @ 200 mls/hr IV.SIG Q6H [facility] Rx#:[id number] Oral 1000 / 1000 Anesthesia Amount 500 / 500 Other: # Voids 4 Date of Last Bowel Movement 09/12/18 09/12/18 # Bowel Movements 1 Results Procedures completed during hospitalization: 09/09/2018 IMPRESSIONS: The ampulla was small and difficult to locate with severe edema and inflammation from nearby pancreatitis RECOMMENDATIONS: 1. Combined procedure for any signs of cholangitis or worsening liver enzymes, otherwise repeat ERCP infew days when pancreas is less inflammed. 2. Liver enzymes daily REPEAT EXAM: Return 3 days ERCP 09/14. Repeat ERCP. Please see report. Labs on day of discharge: Labs from last 24 hours 09/15/18 09/15/18 09/15/18 06:49 06:37 06:37 WBC 7.2 RBC 4.27 L Hgb 14.0 Hct 40.1 MCV 94.0 MCH 32.8 MCHC 34.9 RDW 14.1 Plt Count 305 MPV 8.5 Neut % (Auto) 70.2 H Lymph % (Auto) 11.0 [place] % (Auto) 11.1 H Eos % (Auto) 6.6 H Baso % (Auto) 1.1 Neut # (Auto) 5.1 Lymph # (Auto) 0.8 L [place] # (Auto) 0.8 Eos # (Auto) 0.5 H Baso # (Auto) 0.1 WBC Differential . Differential Comment Auto diff final Sodium 137 Potassium 4.0 Chloride 105 Carbon Dioxide 24.2 Anion Gap 8 BUN 11 Creatinine 1.02 Estimated GFR 73 L POC Glucose 94 Random Glucose 102 Calcium 8.2 L Phosphorus 2.8 Magnesium 2.4 Total Bilirubin 1.1 H Direct Bilirubin 0.8 H Indirect Bilirubin 0.3 AST 70 H ALT 128 H Alkaline Phosphatase 335 H Total Protein 6.7 Albumin 2.5 L 09/15/18 09/14/18 09/14/18 00:42 17:41 14:03 WBC RBC Hgb Hct MCV MCH MCHC RDW Plt Count MPV Neut % (Auto) Lymph % (Auto) [place] % (Auto) Eos % (Auto) Baso % (Auto) Neut # (Auto) Lymph # (Auto) [place] # (Auto) Eos # (Auto) Baso # (Auto) WBC Differential Differential Comment Sodium Potassium Chloride Carbon Dioxide Anion Gap BUN Creatinine Estimated GFR POC Glucose 105 85 92 Random Glucose Calcium Phosphorus Magnesium Total Bilirubin Direct Bilirubin Indirect Bilirubin AST ALT Alkaline Phosphatase Total Protein Albumin - Impressions ITS Impressions Cholangiopancreatography MRI 09/07/18 00:00 CONCLUSION: 1. Cholelithiasis; one large and too numerous to count tiny gravel-like stones within the gallbladder as described. 2. At least 2 tiny stones are present in the distal common bile duct. No biliary distention. 3. I believe one of the tiny stones is also present in the cystic duct. 4. Gallbladder wall thickening and pericholecystic fluid. Phrygian cap versus walled off abscess/rupture adjacent to the fundus. 5. Acute pancreatitis without associated abscess. Chest X-Ray 09/07/18 16:02 CONCLUSION: No evidence of acute cardiopulmonary process. Abdomen/Pelvis CT 09/07/18 17:59 CONCLUSION: 1. Moderate severity acute pancreatitis. No parenchymal necrosis demonstrated. No perceptible stones. 2. Gallbladder wall thickening. Also pericholecystic fluid. This may be reactive but superimposed acute cholecystitis is also in the differential. Additionally, there is robust mucosal enhancement of the common bile duct and the differential would include cholangitis. 3. Mild fatty infiltrated liver. No focal lesion. 4. Diverticulosis of the sigmoid colon. No diverticulitis or other acute inflammatory changes of the gastrointestinal tract. 5. 1.9 cm left adrenal nodule. I don't have any pertinent priors. This is nonspecific but statistically most likely a benign adenoma. 6. Heterogeneous enlargement of the prostate. 7. Atherosclerotic aorta. No aneurysm. Chest CTA 09/07/18 17:59 CONCLUSION: 1. No pulmonary embolus. 2. Nonspecific 8 mm right upper lobe pulmonary nodule. Six-month follow-up noncontrast chest CT is recommended. 3. Mild dependent atelectasis of both lung bases. 4. Coronary artery calcification. 5. Small hiatal hernia. Abdomen X-Ray 09/10/18 00:00 CONCLUSION: 1. Findings consistent with mild adynamic ileus. Discharge Plan - Discharge Condition Condition: Stable - Discharge Order Discharge Orders: Discharge Order (Routine); Ordered 09/15/18 Ordered By: Corey Guthrie - Discharge Details Anticipated Discharge Date: 09/15/18 - Physicians Team Primary Care Provider: Primary Care Physici,No Attending Provider: Corey Guthrie Other Providers: Mar Hogue MD ; Mitch Bolaños MD
[2018-09-15] MEDS: Lisinopril 20 MG Tablet PO SCH (09:50)
[2018-09-15] MEDS: Famotidine PF Inj 20 MG/2 ML Vial IV.PUSH SCH (09:51)
[2018-09-15] MEDS: Heparin - SQ 10,000 UNITS/ML Vial SQ SCH (09:51)
== END 2018-09-15 10:45 | disposition home or self-care (01) ==
LOC: NEPC 15:46 → NEDA 19:19 → N03 22:00 → HCPC 09-08 22:57 → N05 09-12 18:18
PROVIDERS: ADMIT Internal Medicine; ATTEND Internal Medicine